=== PATIENT | male | born 1970 | race Caucasian/White ===

== ENCOUNTER 2016-03-10 08:12 | Day surgery (SDC) | payer OTHER, BC ==
[2016-03-05 11:09] VITALS: BMI 24.3
[2016-03-10 08:51] VITALS: RESP 16; TEMP 97.8
[2016-03-10] MEDS ORDERED: LACTATED RINGERS 1,000 ML IV ONE (09:13)
[2016-03-10] MEDS ORDERED: LIDOCAINE 1% 20 ML VIAL (10MG/ML) FOR IV START SQ ONE (09:14)
[2016-03-10] MEDS ORDERED: MIDAZOLAM 2 MG/2 ML VIAL ONE (09:56)
[2016-03-10] MEDS ORDERED: TRIAMCINOLONE ACETONIDE 40 MG/ML 1 ML VIAL ONE (09:56)
[2016-03-10] MEDS ORDERED: fentaNYL (PF) 50 MCG/ML 2 ML AMP ONE (09:56)
[2016-03-10] MEDS ORDERED: IOHEXOL 180 MG/ML 1 ML ML ONE (09:56)
[2016-03-10] MEDS ORDERED: LACTATED RINGERS 1,000 ML IV SCH (10:00)
--- NOTE | 2016-03-10 10:17 | P.PCN ---
Date of Procedure: 03/10/16 Procedure(s) Performed: PREOPERATIVE DIAGNOSIS: Lumbar radiculopathy. POSTOPERATIVE DIAGNOSIS: Lumbar radiculopathy. PROCEDURE 1. Lumbar epidural steroid injection under fluoroscopic guidance at the L5-S1 level. 2. Lumbar epidurogram. ANESTHESIA: Local with 1% lidocaine 3 ml and IV sedation with Versed 2 mg , and fentanyle 50 Mcg EBL: Minimal PROCEDURE INDICATION: The patient with low back pain and radiculitis symptoms unresponsive to conservative treatment. Fluoroscopy was used to optimize visualization of the needle placement and to maximize safety. PROCEDURE DESCRIPTION / TECHNIQUE: The patient was seen and identified in the preoperative area. Risks, benefits , complications including but not limited to infections ,bleeding ,allergic reaction to the medications ,nerve damage and not complete pain releife , and alternatives were discussed with the patient. The patient agreed to proceed with the procedure and signed the consent. IV was started, and vital signs were stable. Patient was taken to the OR and time out was completed. The patient was placed in the prone position on procedure table and a pillow was placed under the abdomen to reduce lumbar lordosis. The lumbosacral area was prepped and draped in the usual sterile fashion.ere closely monitored during the procedure. Conscious sedation was used during the procedure to decrease patients anxiety. Vital signs was monitered during the entire procedure. Using anterior-posterior fluoroscopy, the L5-S1 interlaminar space was identified and the skin over this site was marked and then infiltrated with 1% lidocaine subcutaneously. Subsequently, a 20-gauge Tuohy epidural needle was inserted and advanced toward the epidural space using the ``Loss of resistance technique and guided by AP and lateral fluoroscopy. The correct needle position in the epidural space was verified with the injection of 2 mL of the water soluble contrast dye Omnipaque 180 contrast and observing an excellent epidurogram with the epidural spread of the dye, after negative aspiration for blood and CSF and in the absence of paresthesias. Again after negative aspiration, a 6 ml mixture containing 80 mg of Kenalog and 2 ml of preservative free Normal Saline, and 2 ml of preservative free lidocaine 1% solution was injected and a washout of epidurogram was seen. Needle was withdrawn intact, skin was cleansed, and bandages were applied. COMPLICATIONS: None DISPOSITION / PLANS: The patient was placed in a supine position and transferred to the recovery area in a stable condition for observation. There was no evidence of lower extremity motor or sensory deficit after the procedure. Patient was discharged from the recovery room after meeting discharge criteria. Home discharge instructions were given to the patient by the staff. The patient was reexamined prior to discharge. The patient will schedule a follow up in the clinic in 2-4 weeks.
[2016-03-10] MEDS ORDERED: IV FLUID CONTINUATION 1,000 ML IV ONE ×2 (10:21)
--- NOTE | 2016-03-10 10:27 | FL ---
Fluoroscopy INDICATION: Pain FINDINGS: Fluoroscopy time: 11 seconds. Images obtained: 2. IMPRESSIONS: 1. Documentation of fluoroscopy.
[2016-03-10 10:49] VITALS: BP 130/88; PULSE 62
== END 2016-03-10 10:52 | disposition home or self-care (01) ==
LOC: ORPAIN 08:12
PROVIDERS: ATTEND Specialist
DX: M54.16 Radiculopathy, lumbar region (principal); F41.9 Anxiety disorder, unspecified
CPT/HCPCS: 62323; J2250; J3301; Q9965; J3010

== ENCOUNTER → 2016-08-08 | Outpatient (CLI) | payer OTHER ==
--- NOTE | 2016-08-08 21:16 | MR ---
EXAMINATION TYPE: MR lumbar spine wo con DATE OF EXAM: 08/08/2016 COMPARISON: 02/27/2014 HISTORY: low back pain; radiculopathy CONTRAST: 0 mL intravenous MultiHance. TECHNIQUE: Multiplanar, multisequence images of the lumbar spine were acquired. FINDINGS: L5-S1: Broad-based central disc bulge is present. Mild anterior thecal sac compression is present. N o AP spinal canal stenosis present. Facet hypertrophy is present. There is moderate left foraminal na rrowing. Correlate with left S1 radicular symptoms. The right foramen is patent. L4-L5: There is a large broad disc bulge with moderate anterior thecal sac compression. Focal left la rge disc herniation is present extending inferiorly posterior to L5. This has moderate to large degre e of thecal sac compression. This is diminished from the comparison study. However, significant impin gement likely remains present. L3-L4: No significant disc bulge or disc herniation. No spinal canal stenosis. No foraminal stenosi s. Disc desiccation is present.. L2-L3: No significant disc bulge or disc herniation. No spinal canal stenosis. No foraminal stenosi s. . L1-L2: No significant disc bulge or disc herniation. No spinal canal stenosis. No foraminal stenosi s. . T12-L1: No significant disc bulge or disc herniation. No spinal canal stenosis. No foraminal stenos is. . Disc herniation at L4-5 remains significant but slightly smaller than the comparison. The disc bulgin g L5-S1 is stable. Disc desiccation at L3-4 is stable from 2015. IMPRESSION: 1. Large left paracentral L4-5 disc herniation with nerve root compression and significant thecal sac compression. This may be slightly smaller than 2015. 2. Stable large broad disc central bulge L5-S1.
== END | disposition home or self-care (01) ==
LOC: RADMRIMAIN 11:41
PROVIDERS: ATTEND Physician Assistant Medical
DX: M51.17 Intervertebral disc disorders with radiculopathy, lumbosacral region (principal)
CPT/HCPCS: 72148

== ENCOUNTER → 2016-12-21 | Outpatient (CLI) | payer BC, OTHER ==
[2016-12-21 11:12] LABS: Partial Thromboplastin Time 24.7 sec (22.0-30.0); Prothrombin Time 10.6 sec (9.0-12.0)
[2016-12-21 11:14] LABS: Basophils % (A) 0 %; CH 29.4; Eosinophils % (A) 1 %; HCT 42.2 % (39.0-53.0); HGB 13.6 gm/dL (13.0-17.5); Luc # (Auto) 0.08; Luc % (Auto) 1; Lymphocytes # (A) 1.6 k/uL (1.0-4.8); Lymphocytes % (A) 18 %; MCH 28.9 pg (25.0-35.0); MCHC 32.2 g/dL (31.0-37.0); MCV 89.7 fL (80.0-100.0); Mean Platelet Volume 7.7; Monocytes # (A) 0.5 k/uL (0-1.0); Monocytes % (A) 5 %; Neutrophils # (A) 6.9 k/uL (1.3-7.7); Neutrophils % (A) 75 %; RBC 4.71 m/uL (4.30-5.90); RDW 13.8 % (11.5-15.5); WBC 9.1 k/uL (3.8-10.6); WBC (Perox) 9.28
[2016-12-21 11:22] LABS: Anion Gap 12 mmol/L; Blood Urea Nitrogen 15 mg/dL (9-20); Calcium 9.9 mg/dL (8.4-10.2); Carbon Dioxide 26 mmol/L (22-30); Chloride 103 mmol/L (98-107); Glucose 121 mg/dL (74-99); Non-African American GFR(MDRD) >60 (>60 ml/min/1.73 sqM); Sodium 141 mmol/L (137-145)
[2016-12-21 11:31] LABS: Appearance,Urine Clear (Clear); Bilirubin,Urine Negative (Negative); Glucose,Urine (UA) Negative (Negative); Ketones,Urine Negative (Negative); Leukocyte Esterase,Urine Negative (Negative); Nitrite,Urine Negative (Negative); Protein,Urine Negative (Negative); Specific Gravity,Urine 1.011 (1.001-1.035); UA Billing (MACRO vs. MICRO) CHEM; Urobilinogen,Urine <2.0 mg/dL (<2.0)
--- NOTE | 2016-12-21 14:27 | XR ---
EXAMINATION TYPE: XR chest 2V DATE OF EXAM: 12/21/2016 COMPARISON: None HISTORY: 46-year-old male preoperative evaluation for lumbar surgery. TECHNIQUE: Frontal and lateral views FINDINGS: The cardiomediastinal silhouette, aorta, and pulmonary vasculature are within normal limits. Lungs an d pleural spaces are clear. Old fracture distal left clavicle. Bony irregularity along the distal asp ect of the right clavicle suggesting sequela of prior injury as well. IMPRESSION: No acute cardiopulmonary process.
== END | disposition home or self-care (01) ==
LOC: LABPAT 10:28
PROVIDERS: ATTEND Orthopaedic Surgery Orthopaedic Surgery of the Spine
DX: Z01.818 Encounter for other preprocedural examination (principal); M48.061 Spinal stenosis, lumbar region without neurogenic claudication
CPT/HCPCS: 36415; 71020; 80048; 81003; 85025; 85610; 85730; 86850; 86900; 86901

== ENCOUNTER 2016-12-30 06:11 | Day surgery (SDC) | payer BC, OTHER ==
[2016-12-25 09:47] VITALS: BMI 23.6
[~2016-12-30 06:11] MED LIST: BACITRACIN 50,000 UNIT, POLYMYXIN B 500,000 UNIT in SODIUM CHLORIDE 0.9% IRRIGATIO 1,00... IRRIGATION ONE; DEXAMETHASONE SOD PHOSPHATE 10 MG/ML 1 ML VIAL IV ONE; LACTATED RINGERS 1,000 ML IV SCH; MIDAZOLAM 2 MG/2 ML VIAL IV PRN; ONDANSETRON 4 MG/2 ML VIAL IVP ONE; SCOPOLAMINE 1.5MG/72HR PATCH TRANSDERM ONE; ceFAZolin 2 GM in SODIUM CHLORIDE 0.9% 100 ML IVPB ONE; ceFAZolin IN SWFI 2 GM/20 ML SYRINGE IVP ONE
[2016-12-30] MEDS ORDERED: LIDOCAINE 1% 20 ML VIAL (10MG/ML) FOR IV START INTRADERMA ONE (06:49)
[2016-12-30] MEDS ORDERED: NEOSTIGMINE 1 MG/ML 10 ML VIAL ONE (07:32)
[2016-12-30] MEDS ORDERED: MIDAZOLAM 2 MG/2 ML VIAL ONE (07:32)
[2016-12-30] MEDS ORDERED: PROPOFOL 10 MG/ML 20 ML VIAL IV ONE ×2 (07:32)
[2016-12-30] MEDS ORDERED: fentaNYL (PF) 50 MCG/ML 2 ML AMP ONE (07:32)
[2016-12-30] MEDS ORDERED: KETAMINE 10 MG/ML 20 ML VIAL ONE (07:32)
[2016-12-30] MEDS ORDERED: GLYCOPYRROLATE 0.2 MG/ML 2 ML VIAL ONE (07:32)
[2016-12-30] MEDS ORDERED: LIDOCAINE 1% INJ 10MG/ML (20 ML MDV) ONE (07:32)
[2016-12-30] MEDS ORDERED: ROCURONIUM BROMIDE 10 MG/ML 10 ML VIAL IV ONE (07:32)
[2016-12-30] MEDS ORDERED: BUPIVACAINE (PF) 0.25% 30 ML VIAL SQ ONE (07:54)
[2016-12-30] MEDS ORDERED: GELATIN SPONGE,ABSORB (LARGE) 1 EACH SPONGE TOPICAL ONE (08:14)
[2016-12-30] MEDS ORDERED: THROMBIN (BOVINE) 5,000 UNIT VIAL TOPICAL ONE (08:16)
[2016-12-30] MEDS ORDERED: methylPREDNISolone ACETATE 80 MG/ML 1 ML VIAL INJ ONE (08:48)
[2016-12-30] MEDS ORDERED: LACTATED RINGERS 1,000 ML IV ONE (08:53)
--- NOTE | 2016-12-30 09:15 | P.OP ---
Date of Procedure: 12/30/16 Preoperative Diagnosis: Spinal stenosis, herniated nucleus pulposis L4 5, neurogenic claudication, lower extremity radiculopathy Postoperative Diagnosis: same Anesthesia: GETA Pathology: none sent Condition: stable Disposition: PACU Description of Procedure: DESCRIPTION OF PROCEDURE(S): BRIEF OPERATIVE NOTE Preoperative Diagnosis: Spinal stenosis L4 5, herniated nucleus pulposis L4 5, neurogenic claudication, lower extremity radiculopathy Postoperative Diagnosis: Same Procedure: Laminectomy and decompression bilaterally L4 5 Discectomy for decompression L4 5 Placement of interlaminar stabilization device, Coflex device L4 5 Use of fluoroscopic guidance Surgeon: Dr. Chavis Gauge Operator: Loc FINN who is present throughout the entire the case persistence during positioning, dissection, exposure, visualization, and all crucial elements of the case as well as closure. Anesthesia: General anesthesia Estimated blood loss: Approximately 50 mL measuring 12 mm Complications: None apparent Components implanted: Paradigm Coflex interlaminar stabilization device Disposition: To recovery room in good stable condition. OPERATIVE INDICATIONS The patient has been having issues in their lower back and lower extremities. The patient was having evidence of neurogenic claudication and spinal stenosis along with issues with lower extremity radiculopathy. The patient also had evidence of radiculopathy particularly in the left lower extremity which was worsening to the right. The patient was found to have significant spinal stenosis which correlated well with their low back and lower extremity symptoms. He was also found to have a disc herniation at L4 5 with extruded fragment. The patient had disc height loss with a slight retrolisthesis at L4 5. The patient has been through conservative treatment. With their imaging, and the level of their stenosis and their propensity for the possibility of recurrent stenosis I felt that decompression with intralaminar stabilization would be a good benefit for the patient. We discussed various treatment options including surgery, and the patient wishes to proceed with surgery We discussed the risk, patient's alternatives and benefits of surgery including but not limited to, risk of bleeding risk of infection, risk of need for further surgery, risk of decreased, loss of motion, loss of function, nerve damage, paralysis, heart attack, blindness and . OPERATIVE SUMMARY After discussing all the risks, patient alternatives and benefits at length, the patient elected to proceed with surgical intervention, signed informed consent, and presented for their procedure. The patient was seen and examined in the preoperative holding area and the surgical site was marked. The patient was given antibiotics and brought to the operating room. The patient was sedated and intubated by anesthesia in standard fashion. The patient was positioned on to the operating room table in a prone position on the appropriate frame which was well-padded and well molded. We were careful to pad any bony prominences and pressure points. We were careful to maintain the patient's cervical spine and good neutral alignment and position throughout. The patient was prepped and draped in a normal standard fashion. An appropriate timeout and keystone protocol performed. We were able to proceed with the surgery. Fluoroscopy was utilized to establish the appropriate level. The local wound area was infiltrated with local anesthetic. An incision was made at the midline longitudinally over the appropriate levels. Dissection was taken down subcutaneously to the level of the fascia which was split midline. Dissection was taken over the lamina. Intraoperative fluoroscopy was taken which showed a marker at the appropriate level. With the appropriate level positively confirmed, we were able to proceed with laminectomy. The wound was copiously irrigated and suctioned dry as had been done periodically throughout the case. I performed a laminectomy with a combination of curettes and a high-speed bur and Kerrison rongeurs. A small medial facetectomy was performed again further access. This was done bilaterally at that level. A partial foraminotomy was also performed. Portions of the ligamentum flavum were taken down to expose the dura and traversing nerve root. I was able to mobilize the traversing nerve root and gain access to the disc space. Note was made of obvious compression from the disc. The anterior aspect of the nerve root and portions of the dura were adhered down to the disc and I tried to free them up as best as possible, but there was significant scarring given the old scar herniation at the area. I was able to mobilize to some degree and gain good access to the disc space Protecting the soft tissue structures, a small annulotomy was established. I was able to perform discectomy and remove any extruded disc fragments and any loose fragments from within the disc itself. There is some disc desiccation noted. I tried to preserve the disc annulus that appeared stable. There were no further extruded fragments noted. There is no evidence of dural tear or leak. Good hemostasis maintained. The wound was copiously irrigated and suctioned dry. Good decompression was noted. At this point further prepared the interspinous process and interlaminar space with a combination of curettes and a high-speed bur and Kerrison rongeurs. As able get good parallel alignment at the interspinous process space and interlaminar space. I used a trial spacer for the Coflex device and have good fit and fill with the appropriate size device at L4 5. I had to shave down the spinous process at to allow for appropriate positioning of the Coflex device. The device was prepared and then positioned and malleted in position with good alignment and good position and good bony purchase at the interlaminar space. The position was checked and found to be approximately 3 mm away from the dura without impingement on the dura itself. It was checked and found to be stable. Intraoperative C-arm was utilized to confirm the alignment and position at the appropriate levels. We were able to proceed with closure. The fascia was closed for a watertight closure. The subcuticular tissue was closed with absorbable suture. The wound was cleaned and dried and dressed with the appropriate dressing. The drapes were broken down. The patient was gently rolled back onto their hospital bed being careful to maintain their cervical spine and good neutral alignment and position. They were woken up by anesthesia, extubated, and brought to the recovery room in good stable condition. The patient will be admitted to the hospital for observation and for appropriate postoperative care, medical management and monitoring. We will continue to follow them closely about the postoperative course.
[2016-12-30] MEDS ORDERED: HYDROcodone/APAP 5-325MG 1 EACH TAB PO PRN ×2 (09:16)
[2016-12-30] MEDS ORDERED: ONDANSETRON 4 MG/2 ML VIAL IVP PRN (09:16)
[2016-12-30] MEDS ORDERED: HYDROmorphone 0.5 MG/0.5 ML SYRINGE IVP PRN (09:16)
[2016-12-30] MEDS ORDERED: IBUPROFEN 600 MG TAB PO PRN (09:16)
[2016-12-30] MEDS ORDERED: HYDROcodone/APAP 10-325MG 1 EACH TAB PO PRN (09:17)
[2016-12-30 09:26] VITALS: RESP 16
[2016-12-30] MEDS: HYDROmorphone 0.5 MG/0.5 ML SYRINGE IVP PRN ×3 (09:35→10:26)
--- NOTE | 2016-12-30 10:03 | FL ---
EXAMINATION TYPE: FL guidance operating room DATE OF EXAM: 12/30/2016 CLINICAL HISTORY: Back pain TECHNIQUE: Fluoroscopy. COMPARISON: none FINDINGS/IMPRESSION: Fluoroscopic guidance was provided during procedure performed by Dr. Chavis. A total of 3 seconds of fluoroscopic time was utilized during the procedure and 0 spot images was acqui red.
[2016-12-30 10:46] VITALS: TEMP 97.9
[2016-12-30] MEDS ORDERED: HYDROmorphone 2 MG/ML 1 ML SYRINGE IVP PRN (11:04)
[2016-12-30] MEDS ORDERED: BENZOCAINE/MENTHOL LOZENG 1 EACH LOZENGE MUCOUS MEM PRN (11:04)
[2016-12-30] MEDS ORDERED: DIAZEPAM 5 MG TAB PO PRN (11:04)
[2016-12-30] MEDS ORDERED: SODIUM CHLORIDE 0.9% 1,000 ML IV SCH (11:15)
[2016-12-30 12:23] VITALS: BP 145/94; PULSE 72
--- NOTE | 2016-12-30 12:56 | XR ---
EXAMINATION TYPE: XR lumbar spine 1V DATE OF EXAM: 12/30/2016 CLINICAL HISTORY: Back pain TECHNIQUE: Fluoroscopy. COMPARISON: none FINDINGS/ IMPRESSION: Fluoroscopic guidance was provided during procedure performed by Dr. Chavis. A total of 3 seconds of fluoroscopic time was utilized during the procedure and 0 spot images was acquired.
[2016-12-30] MEDS ORDERED: ceFAZolin IN SWFI 2 GM/20 ML SYRINGE IVP SCH (16:00)
[2016-12-30] MEDS ORDERED: CYCLOBENZAPRINE 10 MG TAB PO SCH (16:00)
[2016-12-30] MEDS ORDERED: GABAPENTIN 300 MG CAP PO SCH (16:00)
== END 2016-12-30 14:15 | disposition home or self-care (01) ==
LOC: OR 06:11 → 5MS5E 09:05 → OR 14:15
PROVIDERS: ATTEND Orthopaedic Surgery Orthopaedic Surgery of the Spine
DX: M48.062 Spinal stenosis, lumbar region with neurogenic claudication (principal); M51.16 Intervertebral disc disorders with radiculopathy, lumbar region; M47.817 Spondylosis without myelopathy or radiculopathy, lumbosacral region; Z79.891 Long term (current) use of opiate analgesic; Z79.899 Other long term (current) drug therapy
CPT/HCPCS: 22867; 86900; 86901; 86850; 72020; C1713; J2250; J1040; J2710; J0690; J2405; J2001; J3010; J2704; J1170

== ENCOUNTER → 2017-11-23 | Outpatient (CLI) | payer OTHER ==
--- NOTE | 2017-11-23 12:15 | XR ---
EXAMINATION TYPE: XR elbow complete RT DATE OF EXAM: 11/23/2017 CLINICAL HISTORY: Right elbow pain after posterior injury. TECHNIQUE: Frontal, lateral and oblique images of the right elbow are obtained. COMPARISON: None FINDINGS: There is no acute fracture/dislocation evident in the right elbow. No abnormal fat pad si gns are seen. Focal soft tissue swelling is seen over the posterior elbow. IMPRESSION: Posterior soft tissue swelling over the elbow joint with no acute fracture or dislocation in the right elbow.
== END | disposition home or self-care (01) ==
LOC: RADXRMAIN 11:31
PROVIDERS: ATTEND Emergency Medicine
DX: M79.89 Other specified soft tissue disorders (principal)

== ENCOUNTER → 2017-12-01 | Outpatient (CLI) | payer OTHER ==
--- NOTE | 2017-12-01 13:10 | XR ---
Right elbow HISTORY: Trauma and pain 3 views the right elbow correlated prior exam 11/23/2017 There is no significant interval change. Bone mineralization, joint spaces and alignment are maintain ed. Mild hypertrophic change present anteriorly compatible with osteophytic change. Posterior soft ti ssue swelling is again noted. IMPRESSION: No fracture or dislocation. Elbow MRI may be of benefit.
== END | disposition home or self-care (01) ==
LOC: RADXRMAIN 12:15
PROVIDERS: ATTEND Emergency Medicine
DX: S50.01XD Contusion of right elbow, subsequent encounter (principal)

== ENCOUNTER 2018-03-18 14:11 | Emergency (ER) | payer BC, OTHER ==
[2018-03-18 14:21] VITALS: RESP 20; TEMP 97.8
--- NOTE | 2018-03-18 15:01 | ED ---
Head Injury HPI - General Chief complaint: Head Injury Stated complaint: Fall-Head Injury Time Seen by Provider: 03/18/18 14:22 Source: patient, RN notes reviewed Mode of arrival: ambulatory Limitations: no limitations - History of Present Illness Initial comments: 47-year-old male presents emergency Department chief complaint of head injury. Patient states that he fell down some steps and a ramp yesterday. Patient did strike his head and felt that he passed out. Patient went of headache just feeling off today. Denies any extremity pain. Denies any difficulty walking he states he does not feel and balance. Denies any blurred vision. Denies any open lacerations. States he is concerned has he struck his head and this does not feel his usual self. - Related Data Home Medications Medication Instructions Recorded Confirmed Gabapentin 600 mg PO BID 03/18/18 03/18/18 busPIRone HCL 15 mg PO BID 03/18/18 03/18/18 Previous Rx's Medication Instructions Recorded Hydrocodone/Acetaminophen [[place] 1 tab PO QID PRN #120 tablet 09/30/15 10-325] Allergies/Adverse reactions: Allergies Allergy/AdvReac Type Severity Reaction Status Date / Time No Known Allergies Allergy Verified 03/18/18 14:45 Review of Systems ROS Statement: Those systems with pertinent positive or pertinent negative responses have been documented in the HPI. ROS Other: All systems not noted in ROS Statement are negative. Past Medical History Past Medical History: Musculoskeletal Disorder Additional Past Medical History / Comment(s): lower back pain History of Any Multi-Drug Resistant Organisms: None Reported Past Surgical History: Appendectomy Additional Past Surgical History / Comment(s): pain clinic injections Past Anesthesia/Blood Transfusion Reactions: No Reported Reaction Past Psychological History: No Psychological Hx Reported Smoking Status: Never smoker Past Alcohol Use History: None Reported Past Drug Use History: None Reported - Past Family History Mother Family Medical History: No Reported History General Exam Limitations: no limitations General appearance: alert, in no apparent distress Head exam: Present: normocephalic. Absent: atraumatic, normal inspection (Area swelling on the left frontal aspect, abrasion noted) Eye exam: Present: normal appearance, PERRL, EOMI. Absent: scleral icterus, conjunctival injection, periorbital swelling ENT exam: Present: normal exam, normal oropharynx, mucous membranes moist, TM's normal bilaterally Neck exam: Present: normal inspection, full ROM. Absent: tenderness, meningismus, lymphadenopathy Respiratory exam: Present: normal lung sounds bilaterally. Absent: respiratory distress, wheezes, rales, rhonchi, stridor Cardiovascular Exam: Present: regular rate, normal rhythm, normal heart sounds. Absent: systolic murmur, diastolic murmur, rubs, gallop, clicks Extremities exam: Present: normal inspection, full ROM, normal capillary refill. Absent: tenderness, pedal edema, joint swelling, calf tenderness Back exam: Present: full ROM. Absent: tenderness, paraspinal tenderness, vertebral tenderness Neurological exam: Present: alert, oriented X3, CN II-XII intact, normal gait, reflexes normal, other (Plan to nose intact bilaterally without over shooting, normal gait). Absent: motor sensory deficit Skin exam: Present: warm, dry, intact, normal color. Absent: rash Course Vital Signs 03/18/18 14:19 Temperature 97.8 F Pulse Rate 88 Respiratory 20 Rate Blood Pressure 124/85 O2 Sat by Pulse 99 Oximetry Medical Decision Making - Medical Decision Making 47-year-old male presents emergency Department for fall head injury. CT of the brain and C-spine are obtained no acute fracture no intracranial hemorrhage. Patient has mild concussion symptoms. Patient will be discharged with instructions return parameters discussed. Disposition Clinical Impression: Contusion of scalp, Concussion Disposition: HOME SELF-CARE Condition: Stable Instructions (If sedation given, give patient instructions): Concussion (ED) Additional Instructions: Please return to the Emergency Department if symptoms worsen or any other concerns. Is patient prescribed a controlled substance at d/c from ED?: No Referrals: Yonatan Fletcher III, MD [Primary Care Provider] - 1-2 days Time of Disposition: 15:26
--- NOTE | 2018-03-18 15:18 | CT ---
EXAMINATION TYPE: CT brain héctor owens DATE OF EXAM: 03/18/2018 COMPARISON: NONE HISTORY: Fall injury, bump left side head and neck pain. CT DLP: 1251.4 mGycm. Automated Exposure Control for Dose Reduction was Utilized. TECHNIQUE: CT scan of the head and cervical spine are performed without contrast. FINDINGS: There is no acute intracranial hemorrhage, mass effect, or midline shift identified. The ventricles and sulci are within normal limits in size. The globes are intact bilaterally. There is small to moderate-sized left frontal acute scalp hematoma supraorbital level. The calvarium is intact . There is suspected fairly large mucous retention cysts or polyp nearly filling the entire left maxi llary sinus with moderate peripheral mucosal thickening. Remainder paranasal sinuses are clear. Cervical spine is visualized in its entirety from C1 through upper thoracic levels and demonstrates s atisfactory alignment without evidence of acute fracture or dislocation. Prevertebral soft tissue ap pears within normal limits. The C1-C2 articulation is within normal limits on the coronal images. Ve rtebral body heights and disc space heights are maintained. No large posterior disc herniations are s een on sagittal images. Thyroid gland is normal in size. Lung apices show mild pleural/parenchymal sc arring. IMPRESSION: 1. There is no acute fracture or dislocation evident in the cervical spine. 2. No acute intracranial hemorrhage or midline shift is seen. Small to moderate-size acute left front al scalp hematoma noted.
[2018-03-18 15:46] VITALS: BP 129/95; PULSE 87
== END 2018-03-18 15:44 | disposition home or self-care (01) ==
LOC: EC 14:11
DX: S06.0X1A Concussion with loss of consciousness of 30 minutes or less, initial encounter (principal); S00.03XA Contusion of scalp, initial encounter; Z79.899 Other long term (current) drug therapy; W10.9XXA Fall (on) (from) unspecified stairs and steps, initial encounter; Y92.009 Unspecified place in unspecified non-institutional (private) residence as the place of occurrence of the external cause
CPT/HCPCS: 70450; 72125; 99284

== ENCOUNTER 2018-05-16 22:46 | Emergency (ER) | payer OTHER ==
--- NOTE | 2018-05-17 00:41 | ED ---
Abdominal Pain HPI - General Chief Complaint: Abdominal Pain Stated Complaint: Abd Pain Time Seen by Provider: 05/17/18 00:19 Source: patient Mode of arrival: ambulatory Limitations: no limitations - History of Present Illness MD Complaint: abdominal pain Onset/Timin -: days(s) Location: [facility] Radiation: none Severity: severe Quality: cramping, aching Consistency: constant Improves With: nothing Worsens With: nothing Associated Symptoms: nausea - Related Data Home Medications Medication Instructions Recorded Confirmed Gabapentin 600 mg PO BID 03/18/18 03/18/18 busPIRone HCL 15 mg PO BID 03/18/18 03/18/18 Previous Rx's Medication Instructions Recorded Hydrocodone/Acetaminophen [[place] 1 tab PO QID PRN #120 tablet 09/30/15 10-325] Famotidine [Pepcid] 20 mg PO BID #14 tablet 05/17/18 Hydrocodone/Acetaminophen [[place] 1 each PO Q6HR PRN #20 tab 05/17/18 5-325] Ondansetron Odt [Zofran ODT] 4 mg PO Q8HR PRN #10 tab 05/17/18 Allergies Allergy/AdvReac Type Severity Reaction Status Date / Time No Known Allergies Allergy Verified 05/16/18 23:49 Review of Systems ROS Statement: Those systems with pertinent positive or pertinent negative responses have been documented in the HPI. ROS Other: All systems not noted in ROS Statement are negative. Constitutional: Denies: fever, chills Respiratory: Denies: cough, dyspnea Cardiovascular: Denies: chest pain, palpitations, edema Gastrointestinal: Reports: abdominal pain, nausea, constipation. Denies: vomiting, diarrhea, melena, hematochezia Genitourinary: Denies: dysuria, frequency, hematuria, testicular pain, testicular mass Musculoskeletal: Denies: back pain Skin: Denies: rash Neurological: Denies: headache Past Medical History Past Medical History: Musculoskeletal Disorder Additional Past Medical History / Comment(s): lower back pain History of Any Multi-Drug Resistant Organisms: None Reported Past Surgical History: Appendectomy Additional Past Surgical History / Comment(s): pain clinic injections Past Anesthesia/Blood Transfusion Reactions: No Reported Reaction Past Psychological History: No Psychological Hx Reported Smoking Status: Never smoker Past Alcohol Use History: Occasional Past Drug Use History: None Reported - Past Family History Mother Family Medical History: No Reported History General Exam Limitations: no limitations General appearance: alert, in no apparent distress Head exam: Present: atraumatic, normocephalic Eye exam: Present: normal appearance. Absent: scleral icterus, conjunctival injection ENT exam: Present: normal oropharynx Neck exam: Present: normal inspection Respiratory exam: Present: normal lung sounds bilaterally. Absent: respiratory distress, wheezes, rales, rhonchi, stridor Cardiovascular Exam: Present: regular rate, normal rhythm, normal heart sounds. Absent: systolic murmur, diastolic murmur, rubs, gallop GI/Abdominal exam: Present: soft, tenderness (There is mild left upper quadrant tenderness), normal bowel sounds. Absent: distended, guarding, rebound, rigid, organomegaly, mass, pulsatile mass, hernia Extremities exam: Present: normal inspection, normal capillary refill. Absent: pedal edema, calf tenderness Back exam: Present: normal inspection. Absent: CVA tenderness (R), CVA tenderness (L) Neurological exam: Present: alert Skin exam: Present: warm, dry, intact, normal color. Absent: rash Course Vital Signs 05/16/18 05/17/18 23:47 03:00 Temperature 99.6 F 98.6 F Pulse Rate 85 78 Respiratory 16 19 Rate Blood Pressure 139/95 150/87 O2 Sat by Pulse 96 98 Oximetry Medical Decision Making - Medical Decision Making Patient's 47-year-old man with pancreatitis. We discussed possible admission versus outpatient course, and at this point he would prefer to try an outpatient course. Understands to avoid alcohol and other dietary changes including clear liquid to rest the pancreas. Discussed appropriate further care and follow-up. Will return if he is failing outpatient management - Lab Data Result diagrams: 05/17/18 00:45 05/17/18 00:45 Lab Results 05/17/18 05/17/18 05/17/18 Range/Units 00:45 00:45 00:48 WBC 10.1 (3.8-10.6) k/uL RBC 4.48 (4.30-5.90) m/uL Hgb 13.3 (13.0-17.5) gm/dL Hct 38.9 L (39.0-53.0) % MCV 86.8 (80.0-100.0) fL MCH 29.6 (25.0-35.0) pg MCHC 34.1 (31.0-37.0) g/dL RDW 14.5 (11.5-15.5) % Plt Count 187 (150-450) k/uL Neutrophils % 78 % Lymphocytes % 15 % Monocytes % 5 % Eosinophils % 2 % Basophils % 0 % Neutrophils # 7.9 H (1.3-7.7) k/uL Lymphocytes # 1.5 (1.0-4.8) k/uL Monocytes # 0.5 (0-1.0) k/uL Eosinophils # 0.2 (0-0.7) k/uL Basophils # 0.0 (0-0.2) k/uL Sodium 140 (137-145) mmol/L Potassium 3.9 (3.5-5.1) mmol/L Chloride 104 (98-107) mmol/L Carbon Dioxide 27 (22-30) mmol/L Anion Gap 9 mmol/L BUN 10 (9-20) mg/dL Creatinine 0.78 (0.66-1.25) mg/dL Est GFR (CKD-EPI)AfAm >90 (>60 ml/min/1.73 sqM) Est GFR (CKD-EPI)NonAf >90 (>60 ml/min/1.73 sqM) Glucose 110 H (74-99) mg/dL Calcium 8.8 (8.4-10.2) mg/dL Total Bilirubin 0.5 (0.2-1.3) mg/dL AST 20 (17-59) U/L ALT 21 (21-72) U/L Alkaline Phosphatase 95 (38-126) U/L Total Protein 6.1 L (6.3-8.2) g/dL Albumin 3.7 (3.5-5.0) g/dL Amylase 130 H (30-110) U/L Lipase 2073 H (23-300) U/L Urine Color Yellow Urine Appearance Clear (Clear) Urine pH 6.5 (5.0-8.0) Ur Specific [place] 1.023 (1.001-1.035) Urine Protein Trace H (Negative) Urine Glucose (UA) Negative (Negative) Urine Ketones Negative (Negative) Urine Blood Small H (Negative) Urine Nitrite Negative (Negative) Urine Bilirubin Negative (Negative) Urine Urobilinogen <2.0 (<2.0) mg/dL Ur Leukocyte Esterase Trace H (Negative) Urine RBC 2 (0-5) /hpf Urine WBC 1 (0-5) /hpf Urine Bacteria Rare H (None) /hpf Urine Mucus Rare H (None) /hpf Disposition Clinical Impression: Pancreatitis Disposition: HOME SELF-CARE Condition: Good Instructions (If sedation given, give patient instructions): Pancreatitis (ED) Prescriptions: Hydrocodone/Acetaminophen [[place] 5-325] 1 each PO Q6HR PRN #20 tab PRN Reason: Pain Famotidine [Pepcid] 20 mg PO BID #14 tablet Ondansetron Odt [Zofran ODT] 4 mg PO Q8HR PRN #10 tab PRN Reason: Nausea Is patient prescribed a controlled substance at d/c from ED?: Yes When asked, does pt state using other controlled substances?: No If prescribed controlled substance>3 days was MAPS reviewed?: Prescribed <3 Days If opioid is for acute pain is fill amount 7 days or less?: Yes If Rx opioid, was Start Talking consent form obtained?: Yes Referrals: Yonatan Fletcher III, MD [Primary Care Provider] - 1-2 days
[2018-05-17 01:06] LABS: Basophils % (A) 0 %; Eosinophils # (A) 0.2 k/uL (0-0.7); Eosinophils % (A) 2 %; HCT 38.9 % (39.0-53.0); HGB 13.3 gm/dL (13.0-17.5); Lymphocytes # (A) 1.5 k/uL (1.0-4.8); Lymphocytes % (A) 15 %; MCH 29.6 pg (25.0-35.0); MCHC 34.1 g/dL (31.0-37.0); MCV 86.8 fL (80.0-100.0); Mean Platelet Volume 7.3; Monocytes # (A) 0.5 k/uL (0-1.0); Monocytes % (A) 5 %; Neutrophils # (A) 7.9 k/uL (1.3-7.7); Neutrophils % (A) 78 %; Platelet Count 187 k/uL (150-450); RBC 4.48 m/uL (4.30-5.90); RDW 14.5 % (11.5-15.5); WBC 10.1 k/uL (3.8-10.6)
[2018-05-17] MEDS ORDERED: MORPHINE SULFATE 4 MG/ML SYRINGE IV STA (01:11)
[2018-05-17 01:16] LABS: ALT 21 U/L (21-72); AST 20 U/L (17-59); Albumin 3.7 g/dL (3.5-5.0); Alkaline Phosphatase 95 U/L (38-126); Amylase 130 U/L (30-110); Anion Gap 9 mmol/L; Blood Urea Nitrogen 10 mg/dL (9-20); Calcium 8.8 mg/dL (8.4-10.2); Carbon Dioxide 27 mmol/L (22-30); Chloride 104 mmol/L (98-107); Glucose 110 mg/dL (74-99); Potassium 3.9 mmol/L (3.5-5.1); Sodium 140 mmol/L (137-145); Total Bilirubin 0.5 mg/dL (0.2-1.3); Total Protein 6.1 g/dL (6.3-8.2)
--- NOTE | 2018-05-17 01:24 | CT ---
EXAM: CT Abdomen and Pelvis Without Intravenous Contrast CLINICAL HISTORY: Pain TECHNIQUE: Axial computed tomography images of the abdomen and pelvis without intravenous contrast. CTDI is 7.1 mGy and DLP is 85.9 mGy-cm. This CT exam was performed using one or more of the following dose reduction techniques: automated exposure control, adjustment of the mA and/or kV according to patient size, and/or use of iterative reconstruction technique. COMPARISON: No relevant prior studies available. FINDINGS: Lung bases: Unremarkable. No mass. No consolidation. ABDOMEN: Liver: Hepatomegaly. Gallbladder and bile ducts: The gallbladder is contracted. No definite stones seen within the lumen. No ductal dilation. Pancreas: Hazy appearance to the margins of the pancreas with prominence of the pancreatic duct. There is infiltration of the fat around the splenic hilum infiltration the fat between the stomach and the spleen findings may represent a early pancreatitis. Clinical correlation is required. No free fluid is noted. Spleen: Unremarkable. No splenomegaly. Adrenals: Unremarkable. No mass. Kidneys and ureters: Unremarkable. No obstructing stones. No hydronephrosis. Stomach and bowel: Unremarkable. No obstruction. No mucosal thickening. PELVIS: Appendix: The appendix is not identified Bladder: Unremarkable. No stones. Reproductive: Unremarkable as visualized. ABDOMEN and PELVIS: Intraperitoneal space: Unremarkable. No free air. No significant fluid collection. Bones/joints: No acute fracture. No dislocation. Soft tissues: Unremarkable. Vasculature: No abdominal aortic aneurysm. Lymph nodes: Unremarkable. No enlarged lymph nodes. IMPRESSION: Hazy appearance to the margins of the pancreas infiltration of the fat in the splenic hilum around the tail the pancreas. Prominence of the pancreatic duct
[2018-05-17 01:31] LABS: Appearance,Urine Clear (Clear); Bacteria,Urine Rare /hpf; Bilirubin,Urine Negative (Negative); Blood,Urine Small (Negative); Color,Urine Yellow; Glucose,Urine (UA) Negative (Negative); Ketones,Urine Negative (Negative); Leukocyte Esterase,Urine Trace (Negative); Mucus,Urine Rare /hpf; Nitrite,Urine Negative (Negative); PH, Urine 6.5 (5.0-8.0); Protein,Urine Trace (Negative); RBC,Urine 2 /hpf (0-5); Specific Gravity,Urine 1.023 (1.001-1.035); Urobilinogen,Urine <2.0 mg/dL (<2.0); WBC,Urine 1 /hpf (0-5)
[2018-05-17 02:09] LABS: Lipase 2073 U/L (23-300)
[2018-05-17] MEDS ORDERED: HYDROmorphone 1 MG/ML 1 ML SYRINGE IVP STA (02:40)
[2018-05-17 03:06] VITALS: BP 150/87; PULSE 78; RESP 19; TEMP 98.6
== END 2018-05-17 03:01 | disposition home or self-care (01) ==
LOC: EC 22:46
DX: K85.90 Acute pancreatitis without necrosis or infection, unspecified (principal); Z79.899 Other long term (current) drug therapy; Z90.89 Acquired absence of other organs
CPT/HCPCS: 36415; 80053; 82150; 83690; 85025; 81001; 74176; 99284; 96374; 96375; J2270; J1170

== ENCOUNTER 2018-05-27 11:51 | Emergency (ER) | payer OTHER ==
[2018-05-27 12:09] VITALS: TEMP 98
[2018-05-27] MEDS ORDERED: SODIUM CHLORIDE 0.9% 1,000 ML IV ONE (12:31)
--- NOTE | 2018-05-27 12:48 | ED ---
Abdominal Pain HPI - General Chief Complaint: Abdominal Pain Stated Complaint: abd pain - recheck Time Seen by Provider: 05/27/18 12:10 Source: patient Mode of arrival: ambulatory Limitations: no limitations - History of Present Illness Initial Comments: 47-year-old male past medical history of EtOH abuse, previous pancreatitis presented today for chief complaint of abdominal pain x 3 days. Patient states 2 weeks ago he was diagnosed pancreatitis, he was given option of inpatient versus home care. Patient states he preferred home care, he states he took the pills as prescribed and the symptoms went away. He states 3 days ago the symptoms which were identical to when he presented with pancreatitis about 2 weeks ago return. He states is diffuse in the abdomen and particularly present in the epigastric region. denies radiation to his back or any other locations. Describes as aching, sometimes sharp. He states he has vomited on and off about 3 times in the past 2 days. He states he has decreased appetite. Patient denies chest pain, dyspnea or dyspnea on exertion denies lower external swelling back pain patient states she's had chills. No recorded fever. Patient states he has taking a lot of Imodium in the past day and a half due to having diarrhea. Patient denies melena or hematochezia or constipation urgency frequency dysuria testicular pain. Remaining review of system negative, upon arrival patient appears well. No signs of acute distress. - Related Data Home Medications Medication Instructions Recorded Confirmed Gabapentin 600 mg PO BID 03/18/18 05/27/18 busPIRone HCL 15 mg PO BID 03/18/18 05/27/18 Previous Rx's Medication Instructions Recorded Hydrocodone/Acetaminophen [[place] 1 tab PO QID PRN #120 tablet 09/30/15 10-325] Allergies Allergy/AdvReac Type Severity Reaction Status Date / Time No Known Allergies Allergy Verified 05/27/18 12:19 Review of Systems ROS Statement: Those systems with pertinent positive or pertinent negative responses have been documented in the HPI. ROS Other: All systems not noted in ROS Statement are negative. Past Medical History Past Medical History: Musculoskeletal Disorder Additional Past Medical History / Comment(s): lower back pain History of Any Multi-Drug Resistant Organisms: None Reported Past Surgical History: Appendectomy Additional Past Surgical History / Comment(s): pain clinic injections, Back Past Anesthesia/Blood Transfusion Reactions: No Reported Reaction Past Psychological History: No Psychological Hx Reported Smoking Status: Never smoker Past Alcohol Use History: Occasional Past Drug Use History: None Reported - Past Family History Mother Family Medical History: No Reported History General Exam - General Exam Comments Initial Comments: General: The patient is awake and alert, in no distress, and does not appear acutely ill. Eye: Pupils are equal, round and reactive to light, extra-ocular movements are intact. No nystagmus. There is normal conjunctiva bilaterally. No signs of icterus. Ears, nose, mouth and throat: There are moist mucous membranes and no oral lesions. Neck: The neck is supple, there is no tenderness or JVD. Cardiovascular: There is a regular rate and rhythm. No murmur, rub or gallop is appreciated. Respiratory: Lungs are clear to auscultation, respirations are non-labored, breath sounds are equal. No wheezes, stridor, rales, or rhonchi. Gastrointestinal: No noted diaphoresis, jaundice, pallor, protecting postures or squirming. Symmetrical pigmentation of abdomen without signs of inflammation. Umbilicus mildline, inverted without swelling. No dilated veins. Abdomen contour scaphoid, no noted abdominal distention. No visible masses. No peristalsis, aortic pulsations, or ventral hernia. Bowel sounds audible in all 4 quadrants, unremarkable. No friction rubs or venous hums. No epigastic, hepatic or abdominal bruits. Abdomen diffusely tender to palpation, states mild. No rigidity or guarding noted. No facial grimacing.Liver edge, not palpable. Spleen edge, right and left kidney not palpable. Superior bladder margin non-tender. Special Testing: Negative [place], Rov[place], McBurney, [place], cutaneous hyperesthesia. Iliopsoas and obturator tests negative bilaterally. Negative Heel Jar test. No CVA tenderness. Digital rectal exam deferred. Negative tanner turners or cullens s ign Musculoskeletal: Normal ROM, no tenderness. Strength 5/5. Sensation intact. Pulses equal bilaterally 2+. Neurological: A&O x 3. CN II-XII intact, There are no obvious motor or sensory deficits. Coordination appears grossly intact. Speech is normal. Skin: Skin is warm and dry and no rashes or lesions are noted. Psychiatric: Cooperative, appropriate mood & affect, normal judgment. Limitations: no limitations Course Vital Signs 05/27/18 05/27/18 12:07 13:48 Temperature 98 F Pulse Rate 76 71 Respiratory 20 18 Rate Blood Pressure 113/80 136/88 O2 Sat by Pulse 99 99 Oximetry Medical Decision Making - Medical Decision Making 47-year-old male presenting for diffuse abdominal pain x 3 days. Patient diagnosed pancreatitis 2 weeks prior. Patient states he has mild diffuse tenderness on abdominal exam nothing localized. Patient shows no signs of grimacing, protective posturing, rigidity or guarding.no right upper quadrant pain, negative Valdez sign. No jaundice. Lipase within normal limits today. no leukocytosis. Patient states he has had diarrhea a few episodes of emesis. Patient denies chest pain or shortness of breath. She appears well, hydrated on examination. Patient was requesting pain medication for his chronic low back pain denies any changes in his back pain today. Patient provided 1 time dose 2mg morphine. Pt given GI cocktail. At this time I feel patient is stable for discharge with outpatient f/u with primary care provider. Patient is agreeable with discharge as well as outpatient f/u in 2-3 days. Case was discussed in detail with Dr. Rivera's with is agreeable with patient plan of care as well as discharge. Patient is aware of all return parameters discussed and appears to be reliable. At this time I feel patient has viral syndrome with mild diffuse abdominal pain, and diarrhea/vomiting. - Lab Data Result diagrams: 05/27/18 12:25 05/27/18 12:25 Lab Results 05/27/18 05/27/18 05/27/18 Range/Units 12:25 12:25 12:25 WBC 9.4 (3.8-10.6) k/uL RBC 5.14 (4.30-5.90) m/uL Hgb 15.6 (13.0-17.5) gm/dL Hct 47.1 (39.0-53.0) % MCV 91.5 (80.0-100.0) fL MCH 30.3 (25.0-35.0) pg MCHC 33.1 (31.0-37.0) g/dL RDW 14.8 (11.5-15.5) % Plt Count 232 (150-450) k/uL Neutrophils % 78 % Lymphocytes % 15 % Monocytes % 5 % Eosinophils % 1 % Basophils % 0 % Neutrophils # 7.3 (1.3-7.7) k/uL Lymphocytes # 1.4 (1.0-4.8) k/uL Monocytes # 0.5 (0-1.0) k/uL Eosinophils # 0.1 (0-0.7) k/uL Basophils # 0.0 (0-0.2) k/uL Sodium 144 (137-145) mmol/L Potassium 3.8 (3.5-5.1) mmol/L Chloride 102 (98-107) mmol/L Carbon Dioxide 30 (22-30) mmol/L Anion Gap 12 mmol/L BUN 13 (9-20) mg/dL Creatinine 0.97 (0.66-1.25) mg/dL Est GFR (CKD-EPI)AfAm >90 (>60 ml/min/1.73 sqM) Est GFR (CKD-EPI)NonAf >90 (>60 ml/min/1.73 sqM) Glucose 86 (74-99) mg/dL Calcium 10.5 H (8.4-10.2) mg/dL Total Bilirubin 0.4 (0.2-1.3) mg/dL AST 25 (17-59) U/L ALT 30 (21-72) U/L Alkaline Phosphatase 75 (38-126) U/L Total Protein 7.6 (6.3-8.2) g/dL Albumin 4.8 (3.5-5.0) g/dL Amylase 54 (30-110) U/L Lipase 241 (23-300) U/L Urine Color Light Yellow Urine Appearance Clear (Clear) Urine pH 7.0 (5.0-8.0) Ur Specific [place] 1.007 (1.001-1.035) Urine Protein Negative (Negative) Urine Glucose (UA) Negative (Negative) Urine Ketones Negative (Negative) Urine Blood Negative (Negative) Urine Nitrite Negative (Negative) Urine Bilirubin Negative (Negative) Urine Urobilinogen <2.0 (<2.0) mg/dL Ur Leukocyte Esterase Negative (Negative) Disposition Clinical Impression: Vomiting, Diarrhea, Abdominal pain Disposition: HOME SELF-CARE Condition: Good Instructions (If sedation given, give patient instructions): Abdominal Pain (ED), Acute Nausea and Vomiting (ED) Additional Instructions: Please use medication as discussed. Please follow-up with family doctor in the next 2-3 days. Please return to emergency room if the symptoms increase or worsen or for any other concerns. Is patient prescribed a controlled substance at d/c from ED?: No Referrals: Yonatan Fletcher III, MD [Primary Care Provider] - 1-2 days Time of Disposition: 13:56
[2018-05-27 12:57] LABS: Basophils % (A) 0 %; Eosinophils # (A) 0.1 k/uL (0-0.7); Eosinophils % (A) 1 %; HCT 47.1 % (39.0-53.0); HGB 15.6 gm/dL (13.0-17.5); Lymphocytes # (A) 1.4 k/uL (1.0-4.8); Lymphocytes % (A) 15 %; MCH 30.3 pg (25.0-35.0); MCHC 33.1 g/dL (31.0-37.0); MCV 91.5 fL (80.0-100.0); Mean Platelet Volume 6.6; Monocytes # (A) 0.5 k/uL (0-1.0); Monocytes % (A) 5 %; Neutrophils # (A) 7.3 k/uL (1.3-7.7); Neutrophils % (A) 78 %; Platelet Count 232 k/uL (150-450); RBC 5.14 m/uL (4.30-5.90); RDW 14.8 % (11.5-15.5); WBC 9.4 k/uL (3.8-10.6)
[2018-05-27 13:02] LABS: Appearance,Urine Clear (Clear); Bilirubin,Urine Negative (Negative); Blood,Urine Negative (Negative); Color,Urine Light Yellow; Glucose,Urine (UA) Negative (Negative); Ketones,Urine Negative (Negative); Leukocyte Esterase,Urine Negative (Negative); Nitrite,Urine Negative (Negative); Protein,Urine Negative (Negative); Specific Gravity,Urine 1.007 (1.001-1.035); Urobilinogen,Urine <2.0 mg/dL (<2.0)
[2018-05-27 13:12] LABS: ALT 30 U/L (21-72); AST 25 U/L (17-59); Albumin 4.8 g/dL (3.5-5.0); Alkaline Phosphatase 75 U/L (38-126); Amylase 54 U/L (30-110); Anion Gap 12 mmol/L; Blood Urea Nitrogen 13 mg/dL (9-20); Calcium 10.5 mg/dL (8.4-10.2); Carbon Dioxide 30 mmol/L (22-30); Chloride 102 mmol/L (98-107); Glucose 86 mg/dL (74-99); Lipase 241 U/L (23-300); Potassium 3.8 mmol/L (3.5-5.1); Sodium 144 mmol/L (137-145); Total Bilirubin 0.4 mg/dL (0.2-1.3); Total Protein 7.6 g/dL (6.3-8.2)
[2018-05-27] MEDS ORDERED: MAG HYDROX/AL HYDROX/SIMETH 30 ML, HYOSCYAMINE ELIXIR 10 ML, CIMETIDINE HCL 300 MG, LID... PO STA ×4 (13:29)
[2018-05-27] MEDS ORDERED: MORPHINE SULFATE 2 MG/ML SYRINGE IVP STA (13:29)
--- NOTE | 2018-05-27 14:08 | XR ---
EXAMINATION TYPE: XR KUB DATE OF EXAM: 05/27/2018 1:59 PM CLINICAL HISTORY: Abdominal pain. TECHNIQUE: Single upright image of the abdomen is obtained. COMPARISON: None. FINDINGS: Scattered gas is seen in nondilated small bowel loops. Few air-fluid levels in the central abdomen within nondilated bowel suggests ileus. Gas and fecal material is seen in nondilated colon. T here is no pneumoperitoneum or abnormal calcification appreciated. The liver appears elongated extend ing to the iliac crest. Intervertebral disc spacer is seen at L4-L5. The lung bases are clear and the osseous structures are intact. IMPRESSION: Mild small bowel ileus is suspected.
[2018-05-27 15:03] VITALS: BP 129/88; PULSE 75; RESP 16
== END 2018-05-27 15:08 | disposition home or self-care (01) ==
LOC: EC 11:51
DX: R10.84 Generalized abdominal pain (principal); R11.10 Vomiting, unspecified; R19.7 Diarrhea, unspecified; Z79.899 Other long term (current) drug therapy; Z90.49 Acquired absence of other specified parts of digestive tract
CPT/HCPCS: 36415; 74018; 80053; 81003; 82150; 83690; 85025; 96361; 96374; 99284

== ENCOUNTER → 2018-06-23 | Day surgery (SDC) | payer OTHER ==
[2018-06-21 09:45] VITALS: BMI 24.3
[~2018-06-23] MED LIST changes: -BACITRACIN 50,000 UNIT, POLYMYXIN B 500,000 UNIT in SODIUM CHLORIDE 0.9% IRRIGATIO 1,00... IRRIGATION ONE; -DEXAMETHASONE SOD PHOSPHATE 10 MG/ML 1 ML VIAL IV ONE; +LIDOCAINE 1% 20 ML VIAL (10MG/ML) FOR IV START INTRADERMA PRN; -MIDAZOLAM 2 MG/2 ML VIAL IV PRN; -ONDANSETRON 4 MG/2 ML VIAL IVP ONE; +PROPOFOL 10 MG/ML 20 ML VIAL IV ONE; -SCOPOLAMINE 1.5MG/72HR PATCH TRANSDERM ONE; -ceFAZolin 2 GM in SODIUM CHLORIDE 0.9% 100 ML IVPB ONE; -ceFAZolin IN SWFI 2 GM/20 ML SYRINGE IVP ONE
[2018-06-23 07:51] VITALS: TEMP 97.7
--- NOTE | 2018-06-23 08:43 | P.GSHP ---
History of Present Illness H&P Date: 06/23/18 Chief Complaint: GERD, nausea, diarrhea This is a 48-year-old male who presents today for EGD and colonoscopy. Patient has complaints of nausea. Diarrhea. Past Medical History Past Medical History: GERD/Reflux, Musculoskeletal Disorder Additional Past Medical History / Comment(s): pancreatitis,lower back pain History of Any Multi-Drug Resistant Organisms: None Reported Past Surgical History: Appendectomy, Back Surgery Additional Past Surgical History / Comment(s): pain clinic injections Back Past Anesthesia/Blood Transfusion Reactions: No Reported Reaction Smoking Status: Never smoker - Past Family History Father Family Medical History: Cancer Additional Family Medical History / Comment(s): colon Mother Family Medical History: No Reported History Additional Family Medical History / Comment(s): polyps Medications and Allergies Home Medications Medication Instructions Recorded Confirmed Type Hydrocodone/Acetaminophen [[place] 1 tab PO QID PRN #120 tablet 09/30/15 06/23/18 Rx 10-325] Gabapentin 600 mg PO TID PRN 03/18/18 06/23/18 History busPIRone HCL 15 mg PO BID 03/18/18 06/23/18 History DULoxetine HCL [Cymbalta] 30 mg PO DAILY 06/21/18 06/23/18 History Allergies Allergy/AdvReac Type Severity Reaction Status Date / Time No Known Allergies Allergy Verified 06/21/18 09:38 Surgical - Exam Vital Signs Temp Pulse Resp BP Pulse Ox 97.7 F 59 L 16 161/107 96 06/23/18 07:49 06/23/18 07:49 06/23/18 07:49 06/23/18 07:49 06/23/18 07:49 - General well developed, well nourished, no distress - Eyes PERRL - ENT normal pinna - Neck no masses - Respiratory normal expansion - Cardiovascular Rhythm: regular - Abdomen Abdomen: soft, non tender Assessment and Plan Assessment: GERD, nausea, diarrhea. We'll perform EGD and colonoscopy.
--- NOTE | 2018-06-23 08:58 | P.OP ---
Date of Procedure: 06/23/18 Preoperative Diagnosis: GERD, nausea, diarrhea Postoperative Diagnosis: Antral gastritis No hiatal hernia Mild esophagitis Procedure(s) Performed: EGD Colonoscopy Anesthesia: MAC Surgeon: Joni Graves Pathology: other (Antrum, esophagus) Condition: stable Disposition: PACU Description of Procedure: The patient's placed on the endoscopy table in the lateral position. He received IV sedation. The gastroscope placed oropharynx and passed in the esophagus and the stomach. Scope was then placed through the pylorus. The first second portion duodenum appeared normal. Scope was then brought back the antrum and this appeared mildly inflamed. A biopsies performed. The scope was then retroflexed and the remainder of the stomach appeared normal. There was no significant hiatal hernia. The GE junction was at 40 cm. The distal esophagus mildly inflamed a biopsies performed. The proximal esophagus appeared normal. Scope was withdrawn for patient. Next digital rectal exam was performed no abnormalities. The flexible colonoscope was then placed patient anus and passed throughout the entire colon. The ileocecal valve was visualized. The cecum, ascending and transverse colon appeared normal. The descending and; appeared normal. The scope was then brought back the rectum and this appeared normal. Scope was withdrawn for patient.
[2018-06-23 09:24] VITALS: BP 135/80; PULSE 64; RESP 18
--- NOTE | 2018-06-23 11:49 | NM ---
Nuclear medicine hepatobiliary scan. HISTORY: Pain. DOSAGE: The patient received 1.5 micrograms of CCK and 4.4 mCi of Technetium 99m Choletec. FINDINGS: There is normal hepatic extraction. The gallbladder is seen by 20 minutes. There is bilia ry to bowel clearance by 40 minutes. Ejection fraction is 22%. IMPRESSION: 1. Abnormal ejection fraction of 22% correlate for biliary dyskinesia.
== END ==
LOC: ORWHC2ENDO 07:37
PROVIDERS: ATTEND Surgery
DX: K29.50 Unspecified chronic gastritis without bleeding (principal); K21.0 Gastro-esophageal reflux disease with esophagitis; R19.7 Diarrhea, unspecified; M54.5 Low back pain; Z79.899 Other long term (current) drug therapy; Z90.49 Acquired absence of other specified parts of digestive tract; Z80.0 Family history of malignant neoplasm of digestive organs
CPT/HCPCS: 88305; 78227; 45378; 43239; A9537; J2805; J2704

== ENCOUNTER 2018-07-14 07:44 | Day surgery (SDC) | payer OTHER ==
[2018-07-11 09:52] VITALS: BMI 24.3
[~2018-07-14 07:44] MED LIST changes: +DEXAMETHASONE SOD PHOSPHATE 10 MG/ML 1 ML VIAL IV ONE; +HEPARIN SODIUM,PORCINE 5,000 UNIT/ML 1 ML VIAL SQ ONE; +ONDANSETRON 4 MG/2 ML VIAL IVP ONE; -PROPOFOL 10 MG/ML 20 ML VIAL IV ONE; +SCOPOLAMINE 1.5MG/72HR PATCH TRANSDERM ONE; +ceFAZolin IN SWFI 2 GM/20 ML SYRINGE IVP ONE
[2018-07-14] MEDS: MIDAZOLAM 2 MG/2 ML VIAL IV PRN ×3 (08:31→11:03)
[2018-07-14 08:47] LABS: Glucose,Whole Blood 88 mg/dL (75-99)
--- NOTE | 2018-07-14 08:52 | P.GSHP ---
History of Present Illness H&P Date: 07/14/18 Chief Complaint: Right upper quadrant pain This a 48-year-old male who presents today for laparoscopic cholecystectomy. Patient plans right quadrant pain. His recent HIDA scan shows a diminished ejection fraction. Past Medical History Past Medical History: GERD/Reflux, Hypertension, Musculoskeletal Disorder Additional Past Medical History / Comment(s): pancreatitis,lower back pain, States steroids prescribed by Dr. Chavis., Gall Bladder problems- feeling of fullness. History of Any Multi-Drug Resistant Organisms: None Reported Past Surgical History: Appendectomy, Back Surgery Additional Past Surgical History / Comment(s): pain clinic injections Back Past Anesthesia/Blood Transfusion Reactions: No Reported Reaction Past Psychological History: No Psychological Hx Reported Smoking Status: Never smoker Past Alcohol Use History: Occasional Past Drug Use History: None Reported - Past Family History Father Family Medical History: Cancer Additional Family Medical History / Comment(s): colon Mother Family Medical History: No Reported History Additional Family Medical History / Comment(s): polyps Medications and Allergies Home Medications Medication Instructions Recorded Confirmed Type Hydrocodone/Acetaminophen [[place] 1 tab PO QID PRN #120 tablet 09/30/15 07/11/18 Rx 10-325] Gabapentin 600 mg PO TID PRN 03/18/18 07/11/18 History DULoxetine HCL [Cymbalta] 30 mg PO DAILY 06/21/18 07/11/18 History Lisinopril [Zestril] 10 mg PO HS 07/11/18 07/11/18 History Prednison Dose Pack 1 dose PO DIRECTED 07/11/18 History Famotidine [Pepcid] 20 mg PO DAILY PRN 07/14/18 07/14/18 History Allergies Allergy/AdvReac Type Severity Reaction Status Date / Time No Known Allergies Allergy Verified 07/11/18 09:44 Surgical - Exam Vital Signs Temp Pulse Resp BP Pulse Ox 98.2 F 63 16 169/105 99 07/14/18 08:29 07/14/18 08:29 07/14/18 08:29 07/14/18 08:29 07/14/18 08:29 - General well developed, well nourished, no distress - Eyes PERRL - ENT normal pinna - Neck no masses - Respiratory normal expansion - Cardiovascular Rhythm: regular - Abdomen Abdomen: soft, non tender Assessment and Plan Assessment: Right upper quadrant pain Chronic cholecystitis We will perform laparoscopic cholecystectomy.
[2018-07-14] MEDS ORDERED: GLYCOPYRROLATE 0.2 MG/ML 2 ML VIAL ONE (09:44)
[2018-07-14] MEDS ORDERED: ROCURONIUM BROMIDE 10 MG/ML 10 ML VIAL IV ONE (09:44)
[2018-07-14] MEDS ORDERED: NEOSTIGMINE 1 MG/ML 10 ML VIAL ONE (09:44)
[2018-07-14] MEDS ORDERED: KETOROLAC 30 MG/ML 1 ML VIAL ONE (09:44)
[2018-07-14] MEDS ORDERED: MIDAZOLAM 2 MG/2 ML VIAL ONE (09:44)
[2018-07-14] MEDS ORDERED: fentaNYL (PF) 50 MCG/ML 2 ML AMP ONE (09:44)
[2018-07-14] MEDS ORDERED: SUCCINYLCHOLINE CHLORIDE 100 MG/5 ML SYR IV ONE (09:44)
[2018-07-14] MEDS ORDERED: LIDOCAINE 1% INJ 10MG/ML (20 ML MDV) ONE (09:44)
[2018-07-14] MEDS ORDERED: BUPIVACAIN-EPI 0.25%-1:200,000 30 ML VIAL IJ ONE ×2 (09:53→10:05)
[2018-07-14] MEDS ORDERED: LACTATED RINGERS 1,000 ML IV ONE (10:14)
[2018-07-14] MEDS: HYDROmorphone 0.5 MG/0.5 ML SYRINGE IVP PRN ×4 (10:33→10:49)
[2018-07-14 10:44] VITALS: TEMP 96.8
--- NOTE | 2018-07-14 10:45 | P.OP ---
Date of Procedure: 07/14/18 Preoperative Diagnosis: Cholecystitis Postoperative Diagnosis: Cholecystitis Procedure(s) Performed: Laparoscopic cholecystectomy Anesthesia: GRETA Surgeon: Joni Graves Estimated Blood Loss (ml): 5 Pathology: other (Gallbladder) Condition: stable Disposition: PACU Description of Procedure: The patient was placed on the operating table. The patient received a general endotracheal tube anesthesia. The patients abdomen was prepped and draped in the usual sterile fashion. Through an infraumbilical stab incision, the fascia of the anterior abdominal wall was grasped with a pair of Kochers and then the Veress needle was placed in the peritoneal cavity. Position of the Veress needle was confirmed with positive drop test. The abdomen was then insufflated. After adequate insufflation, the 10 mm trocar was placed in the peritoneal cavity. Following this the laparoscope was placed in the peritoneal cavity. The patient was placed in the head-up, right side up position and then a 5 mm trocar was placed in the right lateral and right subcostal position under direct visualization. A 8 mm trocar was placed in the epigastric position. The gallbladder was grasped in the fundus and infundibulum. Traction on the gallbladder was placed in the lateral and the cephalad positions. The triangle of Calot was visualized.. The cystic duct was bluntly dissected until the union of the cystic duct and common bile duct was seen. A critical view of safety was achieved. The cystic duct was then divided and sealed with the Harmonic scissors. A PDS Endoloop was then placed throughout the cystic duct stump. The cystic artery divided and sealed with the Harmonic scissors. The gallbladder was then removed from the liver bed using Harmonic scissors. The gallbladder was then extracted through the epigastric port site. Operative field was checked for any bleeding spots and Harmonic scissors was used to coagulate the liver bed. The abdomen was irrigated. The trocars were removed. The skin was closed using interrupted 3-0 Vicryl suture. Dermabond dressing were applied. The patient tolerated the procedure well.
[2018-07-14] MEDS: MEPERIDINE 50 MG/ML SYRINGE IVP ONE ×2 (10:56→11:03)
[2018-07-14] MEDS: fentaNYL (PF) 50 MCG/ML 2 ML AMP IVP ONE ×2 (11:09→11:11)
[2018-07-14] MEDS ORDERED: hydrALAZINE HCL 20 MG/ML 1 ML VIAL IVP ONE (11:10)
[2018-07-14 11:33] VITALS: RESP 16
[2018-07-14] MEDS ORDERED: HYDROcodone/APAP 5-325MG 1 EACH TAB PO ONE (11:42)
[2018-07-14 12:14] VITALS: BP 138/90; PULSE 96
== END 2018-07-14 12:56 | disposition home or self-care (01) ==
LOC: OR 07:44
PROVIDERS: ATTEND Surgery
DX: K80.10 Calculus of gallbladder with chronic cholecystitis without obstruction (principal); K21.9 Gastro-esophageal reflux disease without esophagitis; I10 Essential (primary) hypertension; K85.90 Acute pancreatitis without necrosis or infection, unspecified; M54.5 Low back pain; Z79.891 Long term (current) use of opiate analgesic; Z79.899 Other long term (current) drug therapy; Z79.52 Long term (current) use of systemic steroids; Z80.0 Family history of malignant neoplasm of digestive organs
CPT/HCPCS: 47562; 88304; J2250; J0360; J1644; J1100; J2710; J2175; J2405; J2001; J3010; J1885; J0330; J1170; J0690

== ENCOUNTER 2018-11-29 11:51 | Emergency (ER) | payer OTHER ==
[2018-11-29 12:26] VITALS: BP 156/97; PULSE 73; TEMP 99
[2018-11-29] MEDS ORDERED: SODIUM CHLORIDE 0.9% 1,000 ML IV STA (13:06)
[2018-11-29] MEDS ORDERED: ONDANSETRON 4 MG/2 ML VIAL IVP STA (13:06)
[2018-11-29] MEDS ORDERED: PANTOPRAZOLE 40 MG/10 ML VIAL IVP STA (13:06)
[2018-11-29] MEDS ORDERED: KETOROLAC 30 MG/ML 1 ML VIAL IVP STA (13:35)
[2018-11-29 13:39] LABS: Basophils # (A) 0.1 k/uL (0-0.2); Basophils % (A) 1 %; Eosinophils # (A) 0.1 k/uL (0-0.7); Eosinophils % (A) 1 %; HCT 42.8 % (39.0-53.0); HGB 15.3 gm/dL (13.0-17.5); Lymphocytes # (A) 1.6 k/uL (1.0-4.8); Lymphocytes % (A) 12 %; MCH 30.7 pg (25.0-35.0); MCHC 35.7 g/dL (31.0-37.0); Mean Platelet Volume 6.9; Monocytes # (A) 0.5 k/uL (0-1.0); Monocytes % (A) 4 %; Neutrophils # (A) 10.3 k/uL (1.3-7.7); Neutrophils % (A) 82 %; Platelet Count 227 k/uL (150-450); RBC 4.98 m/uL (4.30-5.90); RDW 12.3 % (11.5-15.5); WBC 12.7 k/uL (3.8-10.6)
--- NOTE | 2018-11-29 13:39 | ED ---
Abdominal Pain HPI - General Chief Complaint: Abdominal Pain Stated Complaint: Pancreatitis Time Seen by Provider: 11/29/18 12:52 Source: patient Mode of arrival: ambulatory Limitations: no limitations - History of Present Illness Initial Comments: Patient is a 48-year-old male with history of pancreatitis is presenting to emergency Department with chief complaint of abdominal pain nausea vomiting. Patient reports he developed left upper quadrant abdominal pain about 2 days ago and is gradually increased in severity. Patient also reports nausea with multiple episodes of vomiting. Patient reports he had a cholecystectomy several months ago secondary to choledocholithiasis in his stool texture has never return to normal. Patient reports over the last 2 days the texture of the stool is more diarrhea than normal. Patient reports low back pain however he states this is a chronic issue for him. Patient denies any urinary symptoms. Patient denies any chest pain, shortness of breath. patient reports taking [id number] analgesics minimal improve. Patient denies excessive alchool drinking. Patient denies saddle anesthesia, urinary or bowel incontinence. Patient denies any trauma. - Related Data Home Medications Medication Instructions Recorded Confirmed Gabapentin 600 mg PO TID PRN 03/18/18 11/29/18 DULoxetine HCL [Cymbalta] 30 mg PO DAILY 06/21/18 11/29/18 Lisinopril [Zestril] 10 mg PO DAILY 07/11/18 11/29/18 Previous Rx's Medication Instructions Recorded HYDROcodone/APAP 5-325MG [[place] 1 tab PO Q6HR PRN #10 tab 07/14/18 5-325] Ondansetron Odt [Zofran Odt] 4 mg PO Q8HR PRN #10 tab 11/29/18 Allergies Allergy/AdvReac Type Severity Reaction Status Date / Time No Known Allergies Allergy Verified 11/29/18 13:11 Review of Systems ROS Statement: Those systems with pertinent positive or pertinent negative responses have been documented in the HPI. ROS Other: All systems not noted in ROS Statement are negative. Past Medical History Past Medical History: GERD/Reflux, Hypertension, Musculoskeletal Disorder Additional Past Medical History / Comment(s): pancreatitis,lower back pain, States steroids prescribed by Dr. Chavis., Gall Bladder problems- feeling of fullness. History of Any Multi-Drug Resistant Organisms: None Reported Past Surgical History: Appendectomy, Back Surgery Additional Past Surgical History / Comment(s): pain clinic injections Back, gallbladder removed Past Anesthesia/Blood Transfusion Reactions: No Reported Reaction Past Psychological History: No Psychological Hx Reported Smoking Status: Never smoker Past Alcohol Use History: Occasional Past Drug Use History: None Reported - Past Family History Father Family Medical History: Cancer Additional Family Medical History / Comment(s): colon Mother Family Medical History: No Reported History Additional Family Medical History / Comment(s): polyps General Exam Limitations: no limitations General appearance: alert, in no apparent distress Head exam: Present: atraumatic, normocephalic, normal inspection Eye exam: Present: normal appearance Pupils: Present: normal accommodation ENT exam: Present: normal exam, normal oropharynx, mucous membranes moist Neck exam: Present: normal inspection, full ROM Respiratory exam: Present: normal lung sounds bilaterally. Absent: chest wall tenderness Cardiovascular Exam: Present: regular rate, normal rhythm, normal heart sounds GI/Abdominal exam: Present: soft, tenderness (Left upper quadrant tenderness. Negative McBurney point tenderness, negative psoas, negative obturator, negative Rovsing.), normal bowel sounds. Absent: distended, guarding, rebound, rigid, mass, hernia Extremities exam: Present: normal inspection, full ROM Back exam: Present: normal inspection, full ROM Neurological exam: Present: alert, oriented X3 Psychiatric exam: Present: normal affect, normal mood Skin exam: Present: warm, intact, normal color Course Vital Signs 11/29/18 11/29/18 12:24 13:47 Temperature 99.0 F Pulse Rate 73 Respiratory 18 16 Rate Blood Pressure 156/97 O2 Sat by Pulse 100 Oximetry Medical Decision Making - Medical Decision Making Patient is a 48-year-old male presenting to emergency Department with a chief complaint of abdominal pain. Patient given analgesia, fluids, antiemetics. Patient reports only mild improvement in pain relief however he states the nausea has resolved. Labs indicate mild leukocytosis however I suspect this to be secondary to nausea or vomiting. KUB is indicative of centralized bowel loops with air-fluid levels suggesting a possible ileus. I advised patient to have a CT of the abdomen and pelvis, however patient declined. I advised the patient to follow up with a GI specialist for further medical management. I suspect the patient to have acid reflux or gastritis. Strict return parameters were thoroughly discussed with patient was under sitting and agreeable. Case discussed physician. - Lab Data Result diagrams: 11/29/18 13:25 10/22/19 13:25 Lab Results 11/29/18 11/29/18 11/29/18 Range/Units 13:25 13:25 13:25 WBC 12.7 H (3.8-10.6) k/uL RBC 4.98 (4.30-5.90) m/uL Hgb 15.3 (13.0-17.5) gm/dL Hct 42.8 (39.0-53.0) % MCV 86.0 (80.0-100.0) fL MCH 30.7 (25.0-35.0) pg MCHC 35.7 (31.0-37.0) g/dL RDW 12.3 (11.5-15.5) % Plt Count 227 (150-450) k/uL Neutrophils % 82 % Lymphocytes % 12 % Monocytes % 4 % Eosinophils % 1 % Basophils % 1 % Neutrophils # 10.3 H (1.3-7.7) k/uL Lymphocytes # 1.6 (1.0-4.8) k/uL Monocytes # 0.5 (0-1.0) k/uL Eosinophils # 0.1 (0-0.7) k/uL Basophils # 0.1 (0-0.2) k/uL Sodium 141 (137-145) mmol/L Potassium 3.3 L (3.5-5.1) mmol/L Chloride 100 (98-107) mmol/L Carbon Dioxide 28 (22-30) mmol/L Anion Gap 13 mmol/L BUN 10 (9-20) mg/dL Creatinine 0.90 (0.66-1.25) mg/dL Est GFR (CKD-EPI)AfAm >90 (>60 ml/min/1.73 sqM) Est GFR (CKD-EPI)NonAf >90 (>60 ml/min/1.73 sqM) Glucose 111 H (74-99) mg/dL Calcium 10.2 (8.4-10.2) mg/dL Total Bilirubin 1.5 H (0.2-1.3) mg/dL AST 29 (17-59) U/L ALT 26 (21-72) U/L Alkaline Phosphatase 69 (38-126) U/L Total Protein 7.9 (6.3-8.2) g/dL Albumin 4.9 (3.5-5.0) g/dL Amylase 72 (30-110) U/L Lipase 218 (23-300) U/L Urine Color Light Yellow Urine Appearance Clear (Clear) Urine pH 8.0 (5.0-8.0) Ur Specific [place] 1.003 (1.001-1.035) Urine Protein Negative (Negative) Urine Glucose (UA) Negative (Negative) Urine Ketones Negative (Negative) Urine Blood Trace H (Negative) Urine Nitrite Negative (Negative) Urine Bilirubin Negative (Negative) Urine Urobilinogen <2.0 (<2.0) mg/dL Ur Leukocyte Esterase Negative (Negative) Urine RBC 1 (0-5) /hpf Urine WBC <1 (0-5) /hpf Disposition Clinical Impression: Abdominal pain, left upper quadrant, Nausea & vomiting Disposition: HOME SELF-CARE Condition: Stable Instructions (If sedation given, give patient instructions): Abdominal Pain (ED) Additional Instructions: Please take prescribed medication as directed. Please return to emergency department symptoms worsen. Please follow with a GI specialist. Prescriptions: Ondansetron Odt [Zofran Odt] 4 mg PO Q8HR PRN #10 tab PRN Reason: Nausea Is patient prescribed a controlled substance at d/c from ED?: No Referrals: Yonatan Fletcher III, MD [Primary Care Provider] - 1-2 days Yariel Swan MD [STAFF PHYSICIAN] - 1-2 days Time of Disposition: 15:01
[2018-11-29 13:46] LABS: ALT 26 U/L (21-72); AST 29 U/L (17-59); African American GFR (CKD) >90 (>60 ml/min/1.73 sqM); Albumin 4.9 g/dL (3.5-5.0); Alkaline Phosphatase 69 U/L (38-126); Amylase 72 U/L (30-110); Anion Gap 13 mmol/L; Blood Urea Nitrogen 10 mg/dL (9-20); Calcium 10.2 mg/dL (8.4-10.2); Carbon Dioxide 28 mmol/L (22-30); Chloride 100 mmol/L (98-107); Glucose 111 mg/dL (74-99); Potassium 3.3 mmol/L (3.5-5.1); Sodium 141 mmol/L (137-145); Total Bilirubin 1.5 mg/dL (0.2-1.3); Total Protein 7.9 g/dL (6.3-8.2)
[2018-11-29 13:48] VITALS: RESP 16
[2018-11-29 14:03] LABS: Appearance,Urine Clear (Clear); Bilirubin,Urine Negative (Negative); Blood,Urine Trace (Negative); Color,Urine Light Yellow; Glucose,Urine (UA) Negative (Negative); Ketones,Urine Negative (Negative); Leukocyte Esterase,Urine Negative (Negative); Nitrite,Urine Negative (Negative); Protein,Urine Negative (Negative); RBC,Urine 1 /hpf (0-5); Specific Gravity,Urine 1.003 (1.001-1.035); Urobilinogen,Urine <2.0 mg/dL (<2.0); WBC,Urine <1 /hpf (0-5)
--- NOTE | 2018-11-29 14:17 | XR ---
EXAMINATION TYPE: XR KUB DATE OF EXAM: 11/29/2018 2:08 PM CLINICAL HISTORY: Left lower quadrant pain radiating to the groin and back. TECHNIQUE: Single upright image of the abdomen is obtained. COMPARISON: 05/27/2018. FINDINGS: There are scattered air-fluid levels in the mid abdomen and cluster loops of centralized sm all bowel. No dilated small bowel. Air is noted in the rectum. No dilated large bowel. Liver is elong ated extending to the iliac crest. Osseous structures appear intact. Lung bases are well aerated. IMPRESSION: Centralized loops of small bowel demonstrating air-fluid levels are favored to represent ileus as there are currently no dilated loops of bowel and air is seen in the rectum.
== END 2018-11-29 15:05 | disposition home or self-care (01) ==
LOC: EC 11:51
DX: R10.12 Left upper quadrant pain (principal); R11.2 Nausea with vomiting, unspecified; D72.829 Elevated white blood cell count, unspecified; K21.9 Gastro-esophageal reflux disease without esophagitis; I10 Essential (primary) hypertension; M54.5 Low back pain; Z79.52 Long term (current) use of systemic steroids; Z79.899 Other long term (current) drug therapy; Z90.49 Acquired absence of other specified parts of digestive tract; Z87.19 Personal history of other diseases of the digestive system
CPT/HCPCS: 36415; 80053; 82150; 83690; 85025; 81001; 74018; 99284; 96374; 96375 ×2; 96361; J2405; J1885; C9113

== ENCOUNTER 2019-03-22 10:34 | Inpatient (IN) | payer OTHER ==
[2019-03-22] MEDS ORDERED: SODIUM CHLORIDE 0.9% 2,000 ML IV STA (10:54)
[2019-03-22] MEDS ORDERED: ONDANSETRON 4 MG/2 ML VIAL IVP STA (11:23)
[2019-03-22] MEDS ORDERED: HYDROmorphone 0.5 MG/0.5 ML SYRINGE IVP STA (11:23)
[2019-03-22 11:41] LABS: Basophils % (A) 1 %; Eosinophils # (A) 0.1 k/uL (0-0.7); Eosinophils % (A) 2 %; HCT 45.3 % (39.0-53.0); HGB 15.4 gm/dL (13.0-17.5); Lymphocytes % (A) 15 %; MCH 31.2 pg (25.0-35.0); MCHC 33.9 g/dL (31.0-37.0); MCV 92.2 fL (80.0-100.0); Mean Platelet Volume 7.3; Monocytes # (A) 0.4 k/uL (0-1.0); Monocytes % (A) 6 %; Neutrophils % (A) 74 %; Platelet Count 340 k/uL (150-450); RBC 4.92 m/uL (4.30-5.90); WBC 6.7 k/uL (3.8-10.6)
[2019-03-22 11:52] LABS: ALT 9 U/L (4-49); AST 23 U/L (17-59); African American GFR (CKD) >90 (>60 ml/min/1.73 sqM); Albumin 3.9 g/dL (3.5-5.0); Alkaline Phosphatase 117 U/L (38-126); Amylase 69 U/L (30-110); Anion Gap 7 mmol/L; Blood Urea Nitrogen 8 mg/dL (9-20); Calcium 9.4 mg/dL (8.4-10.2); Carbon Dioxide 32 mmol/L (22-30); Chloride 98 mmol/L (98-107); Glucose 122 mg/dL (74-99); Non-African American GFR(CKD) >90 (>60 ml/min/1.73 sqM); Potassium 3.8 mmol/L (3.5-5.1); Sodium 137 mmol/L (137-145); Total Bilirubin 0.7 mg/dL (0.2-1.3); Total Protein 6.8 g/dL (6.3-8.2)
--- NOTE | 2019-03-22 12:17 | CT ---
EXAMINATION TYPE: CT abdomen pelvis w con DATE OF EXAM: 03/22/2019 COMPARISON: HISTORY: pain CT DLP: 644 mGycm Automated exposure control for dose reduction was used. TECHNIQUE: Helical acquisition of images from the lung bases through the pelvis have been completed. CONTRAST: Performed without Oral Contrast and with IV Contrast, patient injected with 100 mL of Isovue 300. FINDINGS: LUNG BASES: No significant abnormality is appreciated. AORTA: No significant abnormality is appreciated. LIVER/GB: Faint foci of low attenuation present within the right lobe of the liver, axial image 25 me asuring approximately 1 cm, additional areas of low-attenuation are scattered within the liver, at le ast 6 lesions are present, largest within the posterior right lobe measures approximately 12 mm.. PANCREAS: Mixed attenuation mass at the tail of pancreas measures approximately 6 x 7 x 5.5 cm. There is surrounding inflammatory change in the mesenteric fat. Some mild prominence of the hepatic duct a t the head of the pancreas.. SPLEEN: No significant abnormality is seen. ADRENALS: No significant abnormality is seen. KIDNEYS: No significant abnormality is seen. REPRODUCTIVE ORGANS: Prostate is enlarged. BOWEL: No significant abnormality is seen. FREE AIR: No Free Air visible. ASCITES: None visible. PELVIC ADENOPATHY: None visualized. RETROPERITONEAL ADENOPATHY: No Retroperitoneal Adenopathy visible. URINARY BLADDER: No significant abnormality is seen. OSSEOUS STRUCTURES: Postprocedural changes are present lower lumbar spine, there is degenerative dis c disease with loss of disc height, minimal retrolisthesis L4-5, associated vacuum phenomenon.. IMPRESSION: METASTATIC PANCREATIC CARCINOMA
--- NOTE | 2019-03-22 12:21 | ED ---
Abdominal Pain HPI - General Chief Complaint: Abdominal Pain Stated Complaint: abd pain Time Seen by Provider: 03/22/19 10:54 Source: patient, RN notes reviewed Mode of arrival: ambulatory Limitations: no limitations - History of Present Illness Initial Comments: This a 48-year-old male presents emergency Department chief complaint abdominal pain. Patient states his been having worsening abdominal pain over several weeks. Patient states that he was holding follow-up with GI he states he try to follow up with local GI but they would not see him secondary to not accepting his insurance. He does scheduled appointment with GI in [facility] but this is not until May. He states that he was advised that he needed imaging of his abdomen. Patient states the pain is tenderness mid abdomen and left side. He occasionally has nausea and states that he can barely eat this point. He has had some loose stools denies any melanotic stools. Patient denies any chest pain, shortness breath no fevers chills she's had a prior cholecystectomy and appendectomy. - Related Data Home Medications Medication Instructions Recorded Confirmed Gabapentin 600 mg PO TID PRN 03/18/18 11/29/18 DULoxetine HCL [Cymbalta] 30 mg PO DAILY 06/21/18 11/29/18 Lisinopril [Zestril] 10 mg PO DAILY 07/11/18 11/29/18 Previous Rx's Medication Instructions Recorded HYDROcodone/APAP 5-325MG [[place] 1 tab PO Q6HR PRN #10 tab 07/14/18 5-325] Ondansetron Odt [Zofran Odt] 4 mg PO Q8HR PRN #10 tab 11/29/18 Allergies Allergy/AdvReac Type Severity Reaction Status Date / Time No Known Allergies Allergy Verified 03/22/19 10:42 Review of Systems ROS Statement: Those systems with pertinent positive or pertinent negative responses have been documented in the HPI. ROS Other: All systems not noted in ROS Statement are negative. Past Medical History Past Medical History: GERD/Reflux, Hypertension, Musculoskeletal Disorder Additional Past Medical History / Comment(s): pancreatitis,lower back pain, States steroids prescribed by Dr. Chavis., Gall Bladder problems- feeling of fullness. History of Any Multi-Drug Resistant Organisms: None Reported Past Surgical History: Appendectomy, Back Surgery Additional Past Surgical History / Comment(s): pain clinic injections Back, gallbladder removed Past Anesthesia/Blood Transfusion Reactions: No Reported Reaction Past Psychological History: No Psychological Hx Reported Smoking Status: Never smoker Past Alcohol Use History: Occasional Past Drug Use History: None Reported - Past Family History Father Family Medical History: Cancer Additional Family Medical History / Comment(s): colon Mother Family Medical History: No Reported History Additional Family Medical History / Comment(s): polyps General Exam Limitations: no limitations General appearance: alert, in no apparent distress Head exam: Present: atraumatic, normocephalic, normal inspection Eye exam: Present: normal appearance, PERRL, EOMI. Absent: scleral icterus, conjunctival injection, periorbital swelling ENT exam: Present: normal exam, normal oropharynx, mucous membranes moist Neck exam: Present: normal inspection, full ROM. Absent: tenderness, meningismus, lymphadenopathy Respiratory exam: Present: normal lung sounds bilaterally. Absent: respiratory distress, wheezes, rales, rhonchi, stridor Cardiovascular Exam: Present: regular rate, normal rhythm, normal heart sounds. Absent: systolic murmur, diastolic murmur, rubs, gallop, clicks GI/Abdominal exam: Present: soft, tenderness (Moderate mid abdominal tenderness), normal bowel sounds. Absent: distended, guarding, rebound, rigid Back exam: Absent: CVA tenderness (R), CVA tenderness (L) Neurological exam: Present: alert Skin exam: Present: warm, dry, intact, normal color. Absent: rash Course Vital Signs 03/22/19 10:39 Temperature 98.1 F Pulse Rate 63 Respiratory 16 Rate Blood Pressure 141/103 O2 Sat by Pulse 100 Oximetry Medical Decision Making - Medical Decision Making Patient's labs were reviewed, essentially unremarkable. CT shows evidence of metastatic pancreatic cancer. Patient was updated on CT results will be admitted for further evaluation by oncology, GI. - Lab Data Result diagrams: 03/22/19 11:24 03/22/19 11:24 Lab Results 03/22/19 03/22/19 03/22/19 Range/Units 11:24 11:24 11:24 WBC 6.7 (3.8-10.6) k/uL RBC 4.92 (4.30-5.90) m/uL Hgb 15.4 (13.0-17.5) gm/dL Hct 45.3 (39.0-53.0) % MCV 92.2 (80.0-100.0) fL MCH 31.2 (25.0-35.0) pg MCHC 33.9 (31.0-37.0) g/dL RDW 14.0 (11.5-15.5) % Plt Count 340 (150-450) k/uL Neutrophils % 74 % Lymphocytes % 15 % Monocytes % 6 % Eosinophils % 2 % Basophils % 1 % Neutrophils # 5.0 (1.3-7.7) k/uL Lymphocytes # 1.0 (1.0-4.8) k/uL Monocytes # 0.4 (0-1.0) k/uL Eosinophils # 0.1 (0-0.7) k/uL Basophils # 0.0 (0-0.2) k/uL Sodium 137 (137-145) mmol/L Potassium 3.8 (3.5-5.1) mmol/L Chloride 98 (98-107) mmol/L Carbon Dioxide 32 H (22-30) mmol/L Anion Gap 7 mmol/L BUN 8 L (9-20) mg/dL Creatinine 0.86 (0.66-1.25) mg/dL Est GFR (CKD-EPI)AfAm >90 (>60 ml/min/1.73 sqM) Est GFR (CKD-EPI)NonAf >90 (>60 ml/min/1.73 sqM) Glucose 122 H (74-99) mg/dL Plasma Lactic Acid [place] 1.0 (0.7-2.0) mmol/L Calcium 9.4 (8.4-10.2) mg/dL Total Bilirubin 0.7 (0.2-1.3) mg/dL AST 23 (17-59) U/L ALT 9 (4-49) U/L Alkaline Phosphatase 117 (38-126) U/L Total Protein 6.8 (6.3-8.2) g/dL Albumin 3.9 (3.5-5.0) g/dL Amylase 69 (30-110) U/L Lipase 281 (23-300) U/L Disposition Clinical Impression: Pancreatic cancer Disposition: ADMITTED IP TO THIS [facility] Condition: Serious Referrals: Yonatan Fletcher III, MD [Primary Care Provider] - 1-2 days
[2019-03-22 12:50] LABS: Appearance,Urine Clear (Clear); Bilirubin,Urine Negative (Negative); Blood,Urine Negative (Negative); Color,Urine Yellow; Glucose,Urine (UA) Negative (Negative); Ketones,Urine 1+ (Negative); Leukocyte Esterase,Urine Negative (Negative); Nitrite,Urine Negative (Negative); Protein,Urine Negative (Negative); Urobilinogen,Urine <2.0 mg/dL (<2.0)
[2019-03-22] MEDS ORDERED: HYDROmorphone 1 MG/ML 1 ML SYRINGE IVP STA (12:59)
[2019-03-22] MEDS ORDERED: ONDANSETRON 4 MG/2 ML VIAL IVP PRN (13:00)
[2019-03-22] MEDS ORDERED: NALOXONE 0.4 MG/ML 1 ML VIAL IV PRN (13:00)
[2019-03-22] MEDS: HYDROmorphone 0.5 MG/0.5 ML SYRINGE IVP PRN (13:07)
[2019-03-22 13:17] LABS: Specific Gravity,Urine >1.050 (1.001-1.035)
[2019-03-22] MEDS: SODIUM CHLORIDE 0.9% 1,000 ML IV SCH (14:15)
[2019-03-22] MEDS: LORazepam 2 MG/ML INJ IV PRN (14:21)
[2019-03-22] MEDS ORDERED: LISINOPRIL 10 MG TAB PO STA (16:19)
[2019-03-22] MEDS ORDERED: GABAPENTIN 300 MG CAP PO PRN (16:19)
[2019-03-22] MEDS: HYDROmorphone 1 MG/ML 1 ML SYRINGE IVP PRN ×2 (18:05→21:15)
[2019-03-22] MEDS ORDERED: hydrALAZINE HCL 20 MG/ML 1 ML VIAL IVP STA (18:55)
--- NOTE | 2019-03-22 23:48 | P.HPIM ---
History of Present Illness H&P Date: 03/22/19 Chief Complaint: Abdominal pain Patient is a 48-year-old male with a known history of hypertension, GERD and history of pancreatitis and chronic low back pain status post surgery and recent cholecystectomy in July 2018 came to ER with the complaints of abdominal pain worsening for the past 7-8 days. Pain is mainly epigastric and left upper quadrant. No other radiation. No aggravating or relieving factors. Patient does have nausea and unable to tolerate any oral diet. Denied any hematemesis or melena. Denied any recent alcohol use. Patient states that he was holding follow-up with GI he states he try to follow up with local GI but they would not see him secondary to not accepting his insurance. He does scheduled appointment with GI in [facility] but this is not until May. No fever no chills. No cough or sputum production. No chest pain or shortness of breath. CT of the abdomen pelvis showed mixed attenuation mass at the tail of pancreas measuring approximately 6 x 7 x 5.5 cm there is surrounding inflammatory change in the mesenteric fat. Some mild prominence of the hepatic duct at the head of the pancreas. Metastatic pancreatic carcinoma. Lipase level 281. all other laboratory data reviewed. Review of Systems Constitutional: Patient denies any fever or chills . No generalized weakness patient does have weight loss. Abdomen: Patient does have nausea and was of vomiting. No diarrhea. Abdominal pain present.. Cardiovascular: Patient denies any chest pain or short of breath no palpitations. Respiratory: patient denied any cough is from production. No shortness of breath Neurologic: Patient denied any numbness or tingling headache. Musculoskeletal: Patient denies any complaints of joint swelling or deformity. Skin: Negative Psychiatric: Negative Endocrine: No heat or cold intolerance. No recent weight gain. Genitourinary: No dysuria or hematuria. All other 14 point ROS negative except the above Past Medical History Past Medical History: GERD/Reflux, Hypertension Additional Past Medical History / Comment(s): Pancreatitis, chronic low back pain, insomnia. History of Any Multi-Drug Resistant Organisms: None Reported Past Surgical History: Appendectomy, Back Surgery, Cholecystectomy Additional Past Surgical History / Comment(s): Low back surgery/coflex device, pain clinic procedures, colonoscopy Past Anesthesia/Blood Transfusion Reactions: No Reported Reaction Smoking Status: Never smoker - Past Family History Father Family Medical History: Cancer Additional Family Medical History / Comment(s): colon cancer with surgery. Mother Family Medical History: No Reported History Additional Family Medical History / Comment(s): Benign polyps Medications and Allergies Home Medications Medication Instructions Recorded Confirmed Type Gabapentin 600 mg PO TID PRN 03/18/18 03/22/19 History Lisinopril [Zestril] 10 mg PO DAILY 07/11/18 03/22/19 History Hydrocodone/Acetaminophen [[place] 1 tab PO Q6H PRN 03/22/19 03/22/19 History 10-325] Allergies Allergy/AdvReac Type Severity Reaction Status Date / Time No Known Allergies Allergy Verified 03/22/19 14:18 Physical Exam Vitals: Vital Signs Temp Pulse Resp BP Pulse Ox 03/22/19 14:13 98.0 F 89 18 160/100 97 03/22/19 10:39 98.1 F 63 16 141/103 100 Intake and Output 03/22/19 03/22/19 03/22/19 06:59 14:59 22:59 Other: Weight 70.307 kg PHYSICAL EXAMINATION: Patient is lying in the bed comfortably, no acute distress, awake alert and oriented.. HEENT: Normocephalic. Neck is supple. Pupils reactive. Nostrils clear. Oral cavity is moist. Ears reveal no drainage. Neck reveals no JVD, carotid bruits, or thyromegaly. CHEST EXAMINATION: Trachea is central. Symmetrical expansion. Lung bear clear to auscultation and percussion. CARDIAC: Normal S1, S2 with no gallops. No murmurs ABDOMEN: Soft. Epigastric tenderness. No guarding no rigidity. Bowel sounds normal. No organomegaly. No abdominal bruits. Extremities: reveal no edema. No clubbing or cyanosis Neurologically awake, alert, oriented x3 with well-coordinated movements. No focal deficits noted Skin: No rash or skin lesions. Psychiatric: Coperative. Nonsuicidal Musculoskeletal: No joint swelling or deformity. Normal range of motion. Results CBC & Chem 7: 03/22/19 11:24 03/22/19 11:24 Labs: Abnormal Lab Results - Last 24 Hours (Table) 03/22/19 03/22/19 Range/Units 11:24 12:38 Carbon Dioxide 32 H (22-30) mmol/L BUN 8 L (9-20) mg/dL Glucose 122 H (74-99) mg/dL Ur Specific [place] >1.050 H (1.001-1.035) Urine Ketones 1+ H (Negative) Thrombosis Risk Factor Assmnt - DVT/VTE Prophylaxis DVT/VTE Prophylaxis: Pharmacologic Prophylaxis ordered - Choose All That Apply Any of the Below Risk Factors Present?: Yes Each Factor Represents 1 point: Age 41-60 years Other Risk Factors: No Other congenital or acquired thrombophilia - If yes, enter type in comment: No Thrombosis Risk Factor Assessment Total Risk Factor Score: 1 Thrombosis Risk Factor Assessment Level: Low Risk Assessment and Plan Assessment: Abdominal pain likely due to metastatic pancreatic cancer as per computed tomography scan of the abdominal pelvis. History of cholecystectomy in June 2018 Chronic low back pain and history of surgery GERD Hypertension DVT prophylaxis. No history of smoking Plan: Patient be continued on pain management with Dilaudid. will check AFB and CA-19-9 , GI and oncology was consulted. Symptomatic management for nausea and vomiting. Further recommendations based on the clinical course. Time with Patient: Greater than 30
[2019-03-23] MEDS: SODIUM CHLORIDE 0.9% 1,000 ML IV SCH ×2 (06:06→17:17)
[2019-03-23] MEDS: HYDROmorphone 0.5 MG/0.5 ML SYRINGE IVP PRN (08:09)
[2019-03-23] MEDS: LISINOPRIL 10 MG TAB PO SCH (08:11)
[2019-03-23] MEDS ORDERED: PANTOPRAZOLE 40 MG/10 ML VIAL IV SCH (09:00)
--- NOTE | 2019-03-23 09:34 | P.CONS ---
History of Present Illness - Reason for Consult Consult date: 03/23/19 pancreatic mass Requesting physician: Andre Marina - Chief Complaint abd pain - History of Present Illness Mr. Romero is a very pleasant 48 year old male with a history of heavy ETOH use, less use the last few months. He has been having episodes of abd pain since at least July of 2018, worked up on each occasion, had choley last year, suspected noro virus infection and at least one other episode of suspected pancreatitis. He was told in Nov 2018 that he had a pancreatic mass but, he had to be referred out of town as his insurance is not accepted locally. His appt is in May. Currently his pain is controlled, he feels better then on admit, no fevers, s weats, no notable wt. loss, chest pain, KATLYN, new cough, he has been taking PPI with some improvement in epigastric discomfort, no recent diarrhea, acute changes in bladder habits, swelling, bleeding, neurological symptoms. Review of Systems 14 point ROS is negative except as stated in HPI Past Medical History Past Medical History: GERD/Reflux, Hypertension Additional Past Medical History / Comment(s): Pancreatitis, chronic low back pain, insomnia. History of Any Multi-Drug Resistant Organisms: None Reported Past Surgical History: Appendectomy, Back Surgery, Cholecystectomy Additional Past Surgical History / Comment(s): Low back surgery/coflex device, pain clinic procedures, colonoscopy Past Anesthesia/Blood Transfusion Reactions: No Reported Reaction Past Psychological History: No Psychological Hx Reported Smoking Status: Never smoker Past Alcohol Use History: Heavy (few beers occasionally recently) Past Drug Use History: Unable to Obtain - Past Family History Father Family Medical History: Cancer (colon) Additional Family Medical History / Comment(s): colon cancer with surgery. Mother Family Medical History: No Reported History Additional Family Medical History / Comment(s): Benign polyps Medications and Allergies Home Medications Medication Instructions Recorded Confirmed Type Gabapentin 600 mg PO TID PRN 03/18/18 03/22/19 History Lisinopril [Zestril] 10 mg PO DAILY 07/11/18 03/22/19 History Hydrocodone/Acetaminophen [[place] 1 tab PO Q6H PRN 03/22/19 03/22/19 History 10-325] Allergies Allergy/AdvReac Type Severity Reaction Status Date / Time No Known Allergies Allergy Verified 03/22/19 14:18 Physical Exam Vitals: Vital Signs Temp Pulse Pulse Resp BP BP Pulse Ox 03/23/19 05:00 97.4 F L 66 18 140/100 98 03/22/19 21:15 96.1 F L 66 16 177/112 100 03/22/19 18:00 68 18 167/101 99 03/22/19 14:13 98.0 F 89 18 160/100 97 03/22/19 10:39 98.1 F 63 16 141/103 100 Intake and Output 03/22/19 03/23/19 03/23/19 22:59 06:59 14:59 Intake Total 150 600 Balance 150 600 Intake: Intake, IV Titration 150 600 Amount Sodium Chloride 0.9% 1, 150 600 000 ml @ 75 mls/hr IV . [id number] [facility] Rx#:[id number] - Constitutional General appearance: average body habitus, cooperative, no acute distress - EENT Eyes: anicteric sclerae, EOMI ENT: hearing grossly normal, normal oropharynx - Neck Neck: no lymphadenopathy - Respiratory Respiratory: bilateral: CTA - Cardiovascular Rhythm: regular Heart sounds: normal: S1, S2 Abnormal Heart Sounds: no systolic murmur, no diastolic murmur, no rub, no S3 Gallop, no S4 Gallop, no click, no other leg Peripheral Edema: bilateral: None - Gastrointestinal General gastrointestinal: no absent bowel sounds, no decreased bowel sounds, no distended, no hepatomegaly, no hyperactive bowel sounds, normal bowel sounds, no organomegaly, no rigid, no scaphoid, soft, no splenomegaly, tenderness, no umbilical hernia, no ventral hernia - Integumentary bronzed coloring Integumentary: normal turgor - Neurologic Neurologic: CNII-XII intact - Musculoskeletal Musculoskeletal: strength equal bilaterally - Psychiatric Psychiatric: A&O x's 3, appropriate affect, intact judgment & insight Results CBC & Chem 7: 03/22/19 11:24 03/22/19 11:24 Labs: Abnormal Lab Results - Last 24 Hours (Table) 03/22/19 03/22/19 Range/Units 11:24 12:38 Carbon Dioxide 32 H (22-30) mmol/L BUN 8 L (9-20) mg/dL Glucose 122 H (74-99) mg/dL Ur Specific [place] >1.050 H (1.001-1.035) Urine Ketones 1+ H (Negative) CT scan - abdomen: report reviewed CT scan - pelvis: report reviewed Assessment and Plan (1) Pancreatic mass Narrative/Plan: Dr. Samuel reviewed with the pt the pancreatic tail mass, suspicious/ill defined lesions in the liver as suspicious for malignancy but, need biopsy to confirm. MRI of liver ordered for further evaluation to see if there is suspicious lesion that can be a target for biopsy. If no target for biopsy recommendation is for [facility]. Pt has problems with transportation, case reviewed with CM to see if able to find him some transport. Reviewed with the pt the tumor markers that were drawn, they were not elevated. Reviewed the use of tumor markers when they are WNL-does not mean that the lesions are not cancerous, need to have biopsy for confirmation. All of pt questions were answered to his satisfaction. Current Visit: Yes Status: Acute Priority: High Code(s): K86.89 - OTHER SPECIFIED DISEASES OF PANCREAS SNOMED Code(s): 995966196 Plan: Doctor attests: I performed a history and physical examination of this patient, developed impression and plan of care. Discussed with dictator. I agree with dictators note, documented as a scribe.
[2019-03-23 11:29] VITALS: BMI 21.3
[2019-03-23] MEDS: HYDROcodone/APAP 10-325MG 1 EACH TAB PO PRN ×2 (11:58→18:08)
[2019-03-23] MEDS: LORazepam 2 MG/ML INJ IV PRN ×2 (13:41→19:19)
--- NOTE | 2019-03-23 17:27 | MR ---
MR liver with and without contrast HISTORY: Pancreatic mass, liver masses Multiplanar multisequence and postcontrast images obtained through the liver. Correlation to CT scan 03/22/2019. There is motion on the exam. Multiple T2 intense foci are scattered within the liver as noted on prior CT. Axial image #36 shows a focus of central enhancement, there is peripheral intermediate signal, lesion measures approximately 15 mm in size. Axial image #57 shows a similar appearing lesion measuring 12 mm in the right lobe of the liver. Anterior margin of the left lobe of the liver at this level shows a lesion measuring 12 m m and shows enhancement. On axial image 73 2 additional lesions are present measuring approximately 1 5 mm in the posterior right lobe and 9 mm adjacent to the liver capsule lateral aspect of the right l obe. Additional lesion on axial image 86 is subcentimeter in size in the right lobe and not well seen postcontrast. Left lobe lesion on axial image #90 present in the medial segment is subcentimeter in size not as well seen postcontrast. Small subcentimeter focus on axial image 81 present in the associate java developer ior right lobe shows enhancement. The pancreatic tail mass is again noted and shows heterogeneous appearance with ductal dilatation dis thierry to the mass, mixed signal intensity with possible areas of necrosis. A large node is suspected ca using mass effect on the left renal vein and in close proximity to the splenic vein measuring 3.2 x 2 .7 cm, likely there is central necrosis.. Smaller node present on axial image #70 immediately posteri or and superior to the pancreatic body measures approximately 2.2 cm x 2.8 cm. IMPRESSION: Pancreatic carcinoma metastatic to liver.
--- NOTE | 2019-03-24 06:43 | P.CONS ---
History of Present Illness - Reason for Consult Consult date: 03/24/19 Pancreatic mass Requesting physician: Veronica Schwarz - Chief Complaint Abdominal pain - History of Present Illness 48-year-old male with a medical history significant for hypertension, GERD, prior cholecystectomy in 07/2018 and prior admission for pancreatitis who prese nted to the hospital with complaints of abdominal pain. Patient reports diffuse abdominal pain described as sharp in nature present in the. Umbilical region of his abdomen and diffusely around that area. He denies any associated nausea or vomiting the pain. He has been seen for similar complaints in the past and subsequently underwent a cholecystectomy with no improvement in his symptoms. He denies any fevers, chills, sputum production. He underwent computed tomography scan of the abdomen and pelvis which showed a pancreatic mass in the tail of the pancreas with some mild prominence of the hepatic duct concerning for metastatic pancreatic cancer. He denies any family history of liver or pancreas pathology. He is scheduled to follow up with a flame burner in [place]. Laboratory evaluation on presentations for WBC 6.7, hemoglobin 4, platelet count 3 46,000, AST 23 and ALTs 9. Review of Systems REVIEW OF SYSTEMS: CONSTITUTIONAL: Denies any fevers, chills, or fatigue. CARDIOVASCULAR: Denies any chest pain, palpitations high or low blood pressures RESPIRATORY: Denies any shortness of breath, hemoptysis or cough. GENITOURINARY: No dysuria or hematuria. MUSCULOSKELETAL: No weakness reported. SKIN: Denies any new rashes or lesions, jaundice or pallor. PSYCHIATRIC: Denies any depression or anxiety. NEUROLOGY: Denies headache, denies any new focal deficits. EARS/NOSE/THROAT: No recent hearing change, congestion, nasal discharge or sore throat. EYES: No pain in eyes, discharge or change in vision. GASTROINTESTINAL: As per HPI. Past Medical History Past Medical History: GERD/Reflux, Hypertension Additional Past Medical History / Comment(s): Pancreatitis, chronic low back pain, insomnia. History of Any Multi-Drug Resistant Organisms: None Reported Past Surgical History: Appendectomy, Back Surgery, Cholecystectomy Additional Past Surgical History / Comment(s): Low back surgery/coflex device, pain clinic procedures, colonoscopy Past Anesthesia/Blood Transfusion Reactions: No Reported Reaction Past Psychological History: No Psychological Hx Reported Smoking Status: Never smoker Past Alcohol Use History: Heavy (few beers occasionally recently) Past Drug Use History: Unable to Obtain - Past Family History Father Family Medical History: Cancer (colon) Additional Family Medical History / Comment(s): colon cancer with surgery. Mother Family Medical History: No Reported History Additional Family Medical History / Comment(s): Benign polyps Medications and Allergies Home Medications Medication Instructions Recorded Confirmed Type Gabapentin 600 mg PO TID PRN 03/18/18 03/22/19 History Lisinopril [Zestril] 10 mg PO DAILY 07/11/18 03/22/19 History Hydrocodone/Acetaminophen [[place] 1 tab PO Q6H PRN 03/22/19 03/22/19 History 10-325] Allergies Allergy/AdvReac Type Severity Reaction Status Date / Time No Known Allergies Allergy Verified 03/22/19 14:18 Physical Exam Vitals: Vital Signs Temp Pulse Pulse Resp BP BP Pulse Ox 03/23/19 13:00 98.6 F 64 20 150/93 97 03/23/19 07:10 17 03/23/19 05:00 97.4 F L 66 18 140/100 98 03/22/19 21:15 96.1 F L 66 16 177/112 100 03/22/19 18:00 68 18 167/101 99 Intake and Output 03/23/19 03/23/19 03/23/19 06:59 14:59 22:59 Intake Total 600 925 Balance 600 925 Intake: Intake, IV Titration 600 675 Amount Sodium Chloride 0.9% 1, 600 675 000 ml @ 75 mls/hr IV . [id number] [facility] Rx#:[id number] Oral 250 Other: # Voids 4 Weight 65.589 kg On physical examination, patient appears comfortable in no apparent distress. HEAD: Normocephalic, atraumatic. EYES: No scleral icterus. No conjunctival injection. MOUTH: No lesions, tongue midline. NECK: Trachea midline, no gross abnormalities. CHEST: Clear to auscultation with no wheezing or rhonchi appreciated. HEART: Regular rate and rhythm. ABDOMEN: Soft, mildly tender to palpation. Bowel sounds are positive. No o rganomegaly. No guarding or rigidity. EXTREMITIES: No pedal edema. SKIN: No rashes, no jaundice. NEUROLOGIC: Alert and oriented x3. No focal deficits. Results CBC & Chem 7: 03/22/19 11:24 03/22/19 11:24 CT scan - abdomen: report reviewed (Large pancreatic mass in the tail of the pancreas with foci in the liver concerning for metastatic pancreatic cancer on computed tomography scan of the abdomen.) Assessment and Plan (1) Pancreatic mass Narrative/Plan: 48-year-old male who presents with worsening abdominal pain. Pain is been chronic in nature over the past year or so and patient has undergone evaluations with admission for pancreatitis in the past as well as prior cholecystectomy with no improvement in his pain. The pain is in the periumbilical region of his abdomen and diffusely spread across his abdomen. Computed tomography scan performed in evaluation on current admission significant for a mass in the tail of the pancreas with multiple foci in the liver concerning for metastatic pancreatic cancer. Current Visit: Yes Status: Acute Priority: High Code(s): K86.89 - OTHER SPECIFIED DISEASES OF PANCREAS SNOMED Code(s): 267433043 (2) Abdominal pain Current Visit: Yes Status: Acute Code(s): R10.9 - UNSPECIFIED ABDOMINAL PAIN SNOMED Code(s): 12326119 Plan: Supportive care Okay for diet Appreciate recommendations from oncology service MRI of the liver ordered Plan per oncology service is for CT guided biopsy with interventional radiology if location of the lesions are amenable, otherwise patient will need referral to advanced endoscopist for endoscopic ultrasound with biopsy for tissue confirmation No plan for ERCP or other endoscopic evaluation at this time Defer further management to the oncology service Thank you for allowing us to participate in the care of the patient
[2019-03-24] MEDS: SODIUM CHLORIDE 0.9% 1,000 ML IV SCH ×2 (07:37→17:25)
[2019-03-24] MEDS: HYDROcodone/APAP 10-325MG 1 EACH TAB PO PRN ×3 (07:38→13:48)
[2019-03-24] MEDS: LISINOPRIL 10 MG TAB PO SCH (09:07)
[2019-03-24] MEDS: PANTOPRAZOLE 40 MG TABLET PO SCH (09:07)
--- NOTE | 2019-03-24 12:59 | P.PN ---
Subjective Progress Note Date: 03/24/19 Principal diagnosis: pancreatic mass, liver lesions in follow-up today patient states improvement in his abdominal discomfort, no recent fevers, nausea, vomiting, indigestion or heartburn, abdominal distention, diarrhea or constipation. Objective - Vital Signs Vital signs: Vital Signs Temp 96.3 F L 03/24/19 11:14 Pulse 59 L 03/24/19 11:14 Resp 16 03/24/19 11:14 BP 150/102 03/24/19 11:14 Pulse Ox 98 03/24/19 11:14 Intake & Output 03/23/19 03/24/19 03/24/19 18:59 06:59 18:59 Intake Total 925 120 Balance 925 120 Weight 65.589 kg Intake: Intake, IV Titration 675 Amount Sodium Chloride 0.9% 1, 675 000 ml @ 75 mls/hr IV . [id number] [facility] Rx#:[id number] Oral 250 120 Other: # Voids 2 2 - Constitutional General appearance: Present: average body habitus, cooperative, no acute distress - EENT Eyes: Present: anicteric sclerae, EOMI ENT: Present: hearing grossly normal - Respiratory Respiratory: bilateral: CTA - Cardiovascular Heart sounds: normal: S1, S2 - Gastrointestinal General gastrointestinal: Present: normal bowel sounds, soft, tenderness (less intense) - Neurologic Neurologic: Present: CNII-XII intact - Musculoskeletal Musculoskeletal: Present: strength equal bilaterally - Psychiatric Psychiatric: Present: A&O x's 3, appropriate affect, intact judgment & insight - Labs CBC & Chem 7: 03/22/19 11:24 03/22/19 11:24 - Imaging and Cardiology MRI - abdomen: report reviewed Assessment and Plan (1) Pancreatic mass Narrative/Plan: Dr. Samuel reviewed with the pt the pancreatic tail mass, suspicious/ill defined lesions in the liver as suspicious for malignancy but, need biopsy to confirm. MRI of liver ordered for further evaluation to see if there is suspicious lesion that can be a target for biopsy. If no target for biopsy recommendation [facility]. Pt has problems with transportation, case reviewed with CM to see if able to find him some transport. Reviewed with the pt the tumor markers that were drawn, they were not elevated. Reviewed the use of tumor markers when they are WNL-does not mean that the lesions are not cancerous, need to have biopsy for confirmation. All of pt questions were answered to his satisfaction. Current Visit: Yes Status: Acute Priority: High Code(s): K86.89 - OTHER SPECIFIED DISEASES OF PANCREAS SNOMED Code(s): 850832053 Plan: MRI report reviewed with the patient. The lesions are highly suspect for malignancy. Consult has been placed for Interventional Radiology to take a look at the scans and biopsy a liver lesion if felt amenable and safe to do so. If not, plan is then to send patient to a tertiary care facility for procedure for pancreatic biopsy. All of this was discussed with the patient he did verbalize understanding the plan. Case management is helping patient with transportation challenges.
[2019-03-24 14:32] LABS: Mean Platelet Volume 7.4; Platelet Count 289 k/uL (150-450)
[2019-03-24 14:44] LABS: Prothrombin Time 10.3 sec (9.0-12.0)
[2019-03-24] MEDS: HYDROmorphone 0.5 MG/0.5 ML SYRINGE IVP PRN ×2 (15:49→16:07)
--- NOTE | 2019-03-24 16:14 | P.OP ---
Date of Procedure: 03/24/19 Preoperative Diagnosis: liver masses, pancreatic mass Postoperative Diagnosis: same Procedure(s) Performed: core biopsy right lobe liver mass Anesthesia: local, other (pain control 1mg dilaudid i.v.) Estimated Blood Loss (ml): 10 Pathology: other (yes) Condition: stable Disposition: no change Operative Findings: 2 x 18 core specimen to path in formalin
[2019-03-24] MEDS ORDERED: hydrALAZINE HCL 20 MG/ML 1 ML VIAL IVP PRN (17:05)
[2019-03-24 17:15] LABS: Glucose,Whole Blood 121 mg/dL (75-99)
[2019-03-24] MEDS: HYDROmorphone 1 MG/ML 1 ML SYRINGE IVP PRN (17:16)
--- NOTE | 2019-03-24 17:17 | CT ---
EXAMINATION TYPE: CT abdomen w con DATE OF EXAM: 03/24/2019 COMPARISON: None HISTORY: pain post liver bx CT DLP: 334 mGycm Automated exposure control for dose reduction was used. CONTRAST: Performed with IV Contrast, patient injected with 100 mL of Isovue 300. Multiple axial sections were obtained from the diaphragm to the iliac crests with IV contrast. Lung bases are clear of infiltrate. There is no pleural effusion or pneumothorax. Heart size is allison l. There is no pericardial effusion. There are a few small hypodense foci in the liver that measure u p to 2.5 cm. Spleen is intact. Stomach is intact. There is 6 cm irregular mixed density lobulated mas s in the tail of the pancreas. Gallbladder is not definitely seen. The bile ducts are not dilated. There is no adrenal mass. Kidneys show satisfactory contrast opacification. There is no hydronephrosi s. There is 5 mm cyst upper pole left kidney. There is 5 mm cortical cyst interpolar right kidney. Th ere is no retroperitoneal adenopathy. There is no ascites or free air. There is no sign of a bowel ob struction. The ureters are not dilated. There is no evidence of mesenteric edema. There is no free fl uid around the liver. The bony structures appear intact. IMPRESSION: Large mass in the tail of the pancreas unchanged. No free fluid. No free air. I do not see a complica ting process of the liver biopsy.
--- NOTE | 2019-03-24 17:21 | P.PN ---
Progress Note - Text Progress Note Date: 03/24/19 called to see patient following liver biopsy for pain and diaphoresis patient moving in bed describing pain at incision site, BP stable to slightly increased from baseline of 160/90 at time of biopsy, patient alert and oriented and transferred to CT scan which shows crescentic blood about the lateral margin of liver, paracolic gutter. Discussed with Dr. Schwarz and Dr. William to transfer to EC, patient remains hemodynamically stable. A team saw patient in EC and transferred to ICU. Patient hypertensive 176/[address] Schwarz discussed case with Dr. Sethi and Dr. Schwarz stated he would prescribe I.v. pain medicine and BP control. A team assumed care and escorted patient to ICU.
--- NOTE | 2019-03-24 17:26 | US ---
EXAMINATION TYPE: US biopsy liver DATE OF EXAM: 03/24/2019 HISTORY: Liver and pancreatic masses. FINDINGS: Maximal barrier technique was utilized. Hand hygiene achieved with soap and water. The ski n overlying a suitable path to the patient's mass in the in the right lobe of the liver was localized with ultrasound and the overlying skin prepped and draped. Ultrasound was utilized with sterile alejandro hnique. Lidocaine was used for local anesthesia. A skin kay was made with a scalpel. An 17-gauge needle was advanced under direct ultrasound guidance and core specimen obtained of the mass in the in ferior right lobe, coaxial placement of an 18-gauge needle was performed and core biopsy obtained. 2 passes were made. Specimen submitted in formalin to Pathology. Following the procedure, hemostasis achieved and the patient is discharged in stable condition without complication. IMPRESSION:STATUS POST ULTRASOUND GUIDED CORE BIOPSY OF right lobe liver MASS, PATHOLOGY IS PENDING. THIS PROCEDURE IS PERFORMED BY THE UNDERSIGNED.
[2019-03-24] MEDS: LORazepam 2 MG/ML INJ IV PRN ×2 (17:48→21:20)
[2019-03-24] MEDS: HYDROcodone/APAP 5-325MG 1 EACH TAB PO PRN (17:48)
[2019-03-24] MEDS ORDERED: THIAMINE 100 MG/ML 2 ML VIAL IM STA (18:25)
[2019-03-24] MEDS ORDERED: LORazepam 2 MG/ML INJ IV PRN ×3 (18:25)
[2019-03-24] MEDS ORDERED: HYDROmorphone 1 MG/ML 1 ML SYRINGE IVP PRN ×2 (18:42→18:44)
[2019-03-24] MEDS ORDERED: ACETAMINOPHEN IV (For NPO) 1,000 MG in EMPTY BAG 1 BAG IVPB PRN (18:50)
[2019-03-24] MEDS ORDERED: KETOROLAC 30 MG/ML 1 ML VIAL IVP PRN (18:51)
[2019-03-24] MEDS ORDERED: ACETAMINOPHEN TAB 500 MG TAB PO PRN (18:56)
[2019-03-24 19:25] LABS: Basophils # (A) 0.1 k/uL (0-0.2); Basophils % (A) 1 %; Eosinophils # (A) 0.1 k/uL (0-0.7); Eosinophils % (A) 1 %; HCT 46.9 % (39.0-53.0); HGB 15.7 gm/dL (13.0-17.5); Lymphocytes # (A) 0.5 k/uL (1.0-4.8); Lymphocytes % (A) 3 %; MCH 30.8 pg (25.0-35.0); MCHC 33.5 g/dL (31.0-37.0); MCV 91.9 fL (80.0-100.0); Mean Platelet Volume 7.9; Monocytes # (A) 0.7 k/uL (0-1.0); Monocytes % (A) 5 %; Neutrophils # (A) 12.2 k/uL (1.3-7.7); Neutrophils % (A) 90 %; Platelet Count 351 k/uL (150-450); RDW 13.7 % (11.5-15.5); WBC 13.5 k/uL (3.8-10.6)
[2019-03-24] MEDS: THIAMINE 100 MG TAB PO SCH (20:21)
--- NOTE | 2019-03-24 22:02 | P.PN ---
Subjective Progress Note Date: 03/23/19 Principal diagnosis: Metastatic pancreatic cancer Patient is a 48-year-old male with a known history of hypertension, GERD and history of pancreatitis and chronic low back pain status post surgery and recent cholecystectomy in July 2018 came to ER with the complaints of abdominal pain worsening for the past 7-8 days. Pain is mainly epigastric and left upper quadrant. No other radiation. No aggravating or relieving factors. Patient does have nausea and unable to tolerate any oral diet. Denied any hematemesis or melena. Denied any recent alcohol use. Patient states that he was holding follow-up with GI he states he try to follow up with local GI but they would not see him secondary to not accepting his insurance. He does scheduled appointment with GI in [facility] but this is not until May. No fever no chills. No cough or sputum production. No chest pain or shortness of breath. CT of the abdomen pelvis showed mixed attenuation mass at the tail of pancreas measuring approximately 6 x 7 x 5.5 cm there is surrounding inflammatory change in the mesenteric fat. Some mild prominence of the hepatic duct at the head of the pancreas. Metastatic pancreatic carcinoma. Lipase level 281. all other laboratory data reviewed. 03/23/2019 Patient says that his abdominal pain is better with medications. Tumor markers CA-19-9 and jason fetoprotein is not elevated. Patient was seen by oncology and recommended MRI liver. MRI showed prostatic pancreatic cancer metastases to liver. IR was consulted for ultrasound-guided biopsy.\ Patient has been afebrile. No chest pain or shortness of breath. Continued on IV hydration and liquid diet as tolerated. Current medications reviewed. Objective - Vital Signs Vital signs: Vital Signs Temp 98.6 F 03/23/19 13:00 Pulse 64 03/23/19 13:00 Resp 16 03/23/19 16:00 BP 150/93 03/23/19 13:00 Pulse Ox 97 03/23/19 13:00 Intake & Output 03/22/19 03/23/19 03/23/19 18:59 06:59 18:59 Intake Total 750 925 Balance 750 925 Weight 70.307 kg 65.589 kg Intake: Intake, IV Titration 750 675 Amount Sodium Chloride 0.9% 1, 750 675 000 ml @ 75 mls/hr IV . [id number] [facility] Rx#:[id number] Oral 250 Other: # Voids 2 - Exam PHYSICAL EXAMINATION: Patient is lying in the bed comfortably, no acute distress, awake alert and oriented.. HEENT: Normocephalic. Neck is supple. Pupils reactive. Nostrils clear. Oral cavi ty is moist. Ears reveal no drainage. Neck reveals no JVD, carotid bruits, or thyromegaly. CHEST EXAMINATION: Trachea is central. Symmetrical expansion. Lung bear clear to auscultation and percussion. CARDIAC: Normal S1, S2 with no gallops. No murmurs ABDOMEN: Soft. Epigastric tenderness, Bowel sounds normal. No organomegaly. No abdominal bruits. Extremities: reveal no edema. No clubbing or cyanosis Neurologically awake, alert, oriented x3 with well-coordinated movements. No focal deficits noted Skin: No rash or skin lesions. Psychiatric: Coperative. Nonsuicidal Musculoskeletal: No joint swelling or deformity. Normal range of motion. - Labs CBC & Chem 7: 03/24/19 19:01 03/22/19 11:24 Assessment and Plan Assessment: Abdominal pain Pancreatic cancer with metastases to liver. History of cholecystectomy in June 2018 Chronic low back pain and history of surgery GERD Hypertension DVT prophylaxis. No history of smoking Plan: Patient be continued on pain management with Dilaudid. AFB and CA-19-9 not elevated , GI and oncology is following. MRI of the liver was done.. Symptomatic management for nausea and vomiting. Further recommendations based on the clinical course. Time with Patient: Greater than 30
--- NOTE | 2019-03-24 22:40 | P.PN ---
Subjective Progress Note Date: 03/24/19 Principal diagnosis: Metastatic pancreatic cancer Patient is a 48-year-old male with a known history of hypertension, GERD and history of pancreatitis and chronic low back pain status post surgery and recent cholecystectomy in July 2018 came to ER with the complaints of abdominal pain worsening for the past 7-8 days. Pain is mainly epigastric and left upper quadrant. No other radiation. No aggravating or relieving factors. Patient does have nausea and unable to tolerate any oral diet. Denied any hematemesis or melena. Denied any recent alcohol use. Patient states that he was holding follow-up with GI he states he try to follow up with local GI but they would not see him secondary to not accepting his insurance. He does scheduled appointment with GI in [facility] but this is not until May. No fever no chills. No cough or sputum production. No chest pain or shortness of breath. CT of the abdomen pelvis showed mixed attenuation mass at the tail of pancreas measuring approximately 6 x 7 x 5.5 cm there is surrounding inflammatory change in the mesenteric fat. Some mild prominence of the hepatic duct at the head of the pancreas. Metastatic pancreatic carcinoma. Lipase level 281. all other laboratory data reviewed. 03/23/2019 Patient says that his abdominal pain is better with medications. Tumor markers CA-19-9 and jason fetoprotein is not elevated. Patient was seen by oncology and recommended MRI liver. MRI showed prostatic pancreatic cancer metastases to liver. IR was consulted for ultrasound-guided biopsy.\ Patient has been afebrile. No chest pain or shortness of breath. Continued on IV hydration and liquid diet as tolerated. 03/24/2019 Patient underwent ultrasound-guided liver biopsy today. Postprocedure patient was diaphoretic and having increased pain. He was also tachycardic and tachypneic with elevated blood pressure. Repeat CT of the abdominal was done showing crescentic blood at the lateral margin of the liver and paracolic gutter. Repeat labs are reviewed showing stable hemoglobin level and WBC count increased to 13.5. Patient will be monitored in the MICU overnight. Discussed with the critical care team. Oncology is on board. Follow-up liver biopsy report. Current medications reviewed. Objective - Vital Signs Vital signs: Vital Signs Temp 98.0 F 03/24/19 17:23 Pulse 77 03/24/19 20:00 Resp 17 03/24/19 20:00 BP 181/116 03/24/19 20:00 Pulse Ox 93 L 03/24/19 20:00 Intake & Output 03/24/19 03/24/19 03/25/19 06:59 18:59 06:59 Intake Total 120 1550 225 Output Total 600 525 Balance 120 950 -300 Intake: IV 75 225 Sodium Chloride 0.9% 1, 75 225 000 ml @ 75 mls/hr IV . [id number] ONUR Rx#:[id number] Intake, IV Titration 525 Amount Sodium Chloride 0.9% 1, 525 000 ml @ 75 mls/hr IV . [id number] ONUR Rx#:[id number] Oral 120 950 Output: Urine 600 525 Other: # Voids 2 2 - Exam PHYSICAL EXAMINATION: Patient is lying in the bed comfortably, no acute distress, awake alert and oriented.. HEENT: Normocephalic. Neck is supple. Pupils reactive. Nostrils clear. Oral cavity is moist. Ears reveal no drainage. Neck reveals no JVD, carotid bruits, or thyromegaly. CHEST EXAMINATION: Trachea is central. Symmetrical expansion. Lung bear clear to auscultation and percussion. CARDIAC: Normal S1, S2 with no gallops. No murmurs ABDOMEN: Soft. Epigastric tenderness, Bowel sounds normal. No organomegaly. No abdominal bruits. Extremities: reveal no edema. No clubbing or cyanosis Neurologically awake, alert, oriented x3 with well-coordinated movements. No focal deficits noted Skin: No rash or skin lesions. Psychiatric: Coperative. Nonsuicidal Musculoskeletal: No joint swelling or deformity. Normal range of motion. - Labs CBC & Chem 7: 03/24/19 19:01 03/22/19 11:24 Labs: Abnormal Lab Results - Last 24 Hours (Table) 03/24/19 03/24/19 Range/Units 17:13 19:01 WBC 13.5 H (3.8-10.6) k/uL Neutrophils # 12.2 H (1.3-7.7) k/uL Lymphocytes # 0.5 L (1.0-4.8) k/uL POC Glucose (mg/dL) 121 H (75-99) mg/dL Assessment and Plan Assessment: Abdominal pain due to metastatic cancer. Pancreatic cancer with metastases to liver. Status post ultrasound-guided liver biopsy. Elevating pathology report. History of cholecystectomy in June 2018 Chronic low back pain and history of surgery GERD Hypertension DVT prophylaxis. No history of smoking Plan: Patient be continued on pain management with Dilaudid. AFB and CA-19-9 not elevated , GI and oncology is following. MRI of the liver was done showing liver metastasis with pancreatic cancer. Ultrasound-guided liver biopsy was done today. Symptomatic management for nausea and vomiting. Further recommendations based on the clinical course. Time with Patient: Greater than 30
[2019-03-25] MEDS: HYDROcodone/APAP 5-325MG 1 EACH TAB PO PRN ×4 (02:20→19:46)
[2019-03-25 05:10] LABS: Basophils # (A) 0.1 k/uL (0-0.2); Basophils % (A) 1 %; Eosinophils # (A) 0.1 k/uL (0-0.7); Eosinophils % (A) 1 %; HCT 42.8 % (39.0-53.0); HGB 14.1 gm/dL (13.0-17.5); Lymphocytes # (A) 1.1 k/uL (1.0-4.8); Lymphocytes % (A) 12 %; MCH 30.4 pg (25.0-35.0); MCHC 33.1 g/dL (31.0-37.0); MCV 92.1 fL (80.0-100.0); Mean Platelet Volume 7.6; Monocytes # (A) 0.6 k/uL (0-1.0); Monocytes % (A) 6 %; Neutrophils # (A) 7.5 k/uL (1.3-7.7); Neutrophils % (A) 79 %; Platelet Count 273 k/uL (150-450); RBC 4.65 m/uL (4.30-5.90); RDW 13.8 % (11.5-15.5); WBC 9.4 k/uL (3.8-10.6)
[2019-03-25 05:20] LABS: African American GFR (CKD) >90 (>60 ml/min/1.73 sqM); Anion Gap 5 mmol/L; Blood Urea Nitrogen 5 mg/dL (9-20); Calcium 8.9 mg/dL (8.4-10.2); Carbon Dioxide 28 mmol/L (22-30); Chloride 100 mmol/L (98-107); Glucose 89 mg/dL (74-99); Non-African American GFR(CKD) >90 (>60 ml/min/1.73 sqM); Potassium 3.6 mmol/L (3.5-5.1); Sodium 133 mmol/L (137-145)
[2019-03-25] MEDS ORDERED: POTASSIUM CHLORIDE ER 20 MEQ TAB.ER PO STA (05:37)
[2019-03-25] MEDS: SODIUM CHLORIDE 0.9% 1,000 ML IV SCH (05:55)
[2019-03-25] MEDS: THIAMINE 100 MG TAB PO SCH ×2 (06:57→17:29)
[2019-03-25] MEDS: LISINOPRIL 10 MG TAB PO SCH (08:09)
[2019-03-25] MEDS: PANTOPRAZOLE 40 MG TABLET PO SCH (08:09)
--- NOTE | 2019-03-25 12:30 | CONS ---
CONSULTATION PULMONARY/CRITICAL CARE CONSULTATION: DATE OF SERVICE: 03/25/2019 This is a patient who presented to the emergency room with abdominal pain. He has been having abdominal pain for several weeks prior to admission. The patient apparently was to follow up with GI, but has not been able to do so because of insurance issues. Anyway, the patient was admitted and had scanning done of his abdomen. This scan showed a pancreatic tail mass and possible liver METS and he was thought to have metastatic pancreatic carcinoma, which is hard to believe given the fact that he is 48. Anyway, he had attempted a biopsy yesterday by Dr. Douglass. Subsequent to that, the patient had pain and the patient was thought to possibly have some bleeding and therefore the patient was admitted to the ICU for observation. Currently, he is very stable. Initially, he had a very high blood pressure and had issues with pain control. He is postop day #1 status post fine-needle aspiration of a liver lesion. Currently, he is not receiving any supplemental oxygen. His saline IV is running at 75 mL an hour. He does have a history of hypertension, pancreatitis, possible pancreatic cancer, low back pain, alcohol abuse, appendectomy, and cholecystectomy. He apparently drinks a fifth of Fireball every day. HOME MEDICATIONS: Reviewed. He is on gabapentin, Cymbalta, lisinopril, [place], and Zofran. ALLERGIES: Denied. PAST MEDICAL HISTORY: Positive for gastroesophageal reflux disease, hypertension, chronic back pain, pancreatitis, and possible gallbladder disease. SURGICAL HISTORY: Includes appendectomy, as well as back surgery and cholecystectomy. SOCIAL HISTORY: Negative tobacco. Alcohol abuse is noted to be significant. He denies any illicit drug use. FAMILY HISTORY: Positive for father with colon cancer and mother with colonic polyp. REVIEW OF SYSTEMS: CONSTITUTIONAL: Negative. NEUROLOGIC: Negative. HEENT: Negative. CARDIOVASCULAR: Negative. PULMONARY: Negative. GI: Abdominal pain. : Negative. RHEUMATOLOGIC: Negative. IMMUNOLOGIC: Negative. ENDOCRINOLOGIC: Negative. DERMATOLOGIC: Negative. Current vital signs are reviewed, temperature 98.1, heart rate 61, respiratory rate 13, blood pressure 129/90 mean 103, room air saturation 95%-96%. GENERAL: Appears in no acute distress. HEENT: Examination is grossly unremarkable. Mucous membranes are moist. No oral lesions. NECK: Supple, full range of motion. No adenopathy or thyromegaly. Neck veins are flat. CARDIOVASCULAR: Examination reveals regular rhythm and rate. Heart rate 61. S1, S2 normal. No S3, S4, or murmur. LUNGS: Reveal mostly clear breath sounds. A few scattered rhonchi noted. No wheezes or crackles. ABDOMEN: Reveals some diffuse abdominal tenderness. He has tenderness more so around the biopsy site, which is in the right lateral abdominal area. Bowel sounds are noted. EXTREMITIES: Intact. No cyanosis, clubbing, or edema. SKIN: Without rash. NEUROLOGIC: Examination is brief, but nonfocal. LABS: Reviewed. White count 9.4, hemoglobin 14.1, hematocrit 42.8, platelet count 273,000. Sodium 133, potassium 3.6, chloride is 100, CO2 is 28, anion gap is 5. BUN and creatinine were 5 and 0.69. Calcium 8.9. Urine is negative. The patient had an abdominal CT scan after the procedure, and I did speak to Dr. Douglass about it. It showed a large mass in the tail of pancreas which is unchanged. There is no free fluid or free air. There is no complicating process following liver biopsy. Liver biopsy ultrasound was also reviewed. That was done by Dr. Douglass. MEDICATIONS: Reviewed. They seem to be appropriate. He is essentially on Tylenol, gabapentin, Apresoline, [place], Dilaudid, Toradol, Zestril, Ativan per CIWA, Narcan, Zofran, Protonix, K-Dur, saline IV, and thiamine. ASSESSMENT: 1. Status post severe pain, hypertension and nausea, following a fine-needle aspiration of a liver lesion. 2. Potential diagnosis of metastatic pancreatic carcinoma based on CT scan of abdomen. 3. History of gastroesophageal reflux disease.. 4. History of hypertension. 5. History of chronic back pain. 6. History of pancreatitis. 7. Status post cholecystectomy. 8. Status post appendectomy. 9. History of have heavy alcohol abuse, drinking one=fifth of Fireball a day. PLAN: The patient is doing well. Will continue to monitor him here. He appears not to be having significant pain, although on palpation, he does have pain. His hemoglobin seems to be stable. His respiratory status is stable. No additional recommendations are made at this time. Will continue to follow. Prognosis is guarded. MMODL / IJN: [id number] /
[2019-03-25] MEDS: LORazepam 2 MG/ML INJ IV PRN (16:20)
[2019-03-25] MEDS: amLODIPine 5 MG TAB PO SCH (20:13)
[2019-03-26] MEDS: HYDROcodone/APAP 5-325MG 1 EACH TAB PO PRN ×4 (03:41→17:28)
[2019-03-26] MEDS: LISINOPRIL 10 MG TAB PO SCH (07:50)
[2019-03-26] MEDS: PANTOPRAZOLE 40 MG TABLET PO SCH (07:50)
[2019-03-26] MEDS: amLODIPine 5 MG TAB PO SCH (07:50)
[2019-03-26] MEDS: THIAMINE 100 MG TAB PO SCH ×2 (07:50→17:21)
[2019-03-26] MEDS: LORazepam 2 MG/ML INJ IV PRN (15:17)
--- NOTE | 2019-03-26 23:37 | P.PN ---
Subjective Progress Note Date: 03/25/19 Principal diagnosis: Metastatic pancreatic cancer Patient is a 48-year-old male with a known history of hypertension, GERD and history of pancreatitis and chronic low back pain status post surgery and recent cholecystectomy in July 2018 came to ER with the complaints of abdominal pain worsening for the past 7-8 days. Pain is mainly epigastric and left upper quadrant. No other radiation. No aggravating or relieving factors. Patient does have nausea and unable to tolerate any oral diet. Denied any hematemesis or melena. Denied any recent alcohol use. Patient states that he was holding follow-up with GI he states he try to follow up with local GI but they would not see him secondary to not accepting his insurance. He does scheduled appointment with GI in [facility] but this is not until May. No fever no chills. No cough or sputum production. No chest pain or shortness of breath. CT of the abdomen pelvis showed mixed attenuation mass at the tail of pancreas measuring approximately 6 x 7 x 5.5 cm there is surrounding inflammatory change in the mesenteric fat. Some mild prominence of the hepatic duct at the head of the pancreas. Metastatic pancreatic carcinoma. Lipase level 281. all other laboratory data reviewed. 03/23/2019 Patient says that his abdominal pain is better with medications. Tumor markers CA-19-9 and jason fetoprotein is not elevated. Patient was seen by oncology and recommended MRI liver. MRI showed prostatic pancreatic cancer metastases to liver. IR was consulted for ultrasound-guided biopsy.\ Patient has been afebrile. No chest pain or shortness of breath. Continued on IV hydration and liquid diet as tolerated. 03/24/2019 Patient underwent ultrasound-guided liver biopsy today. Postprocedure patient was diaphoretic and having increased pain. He was also tachycardic and tachypneic with elevated blood pressure. Repeat CT of the abdominal was done showing crescentic blood at the lateral margin of the liver and paracolic gutter. Repeat labs are reviewed showing stable hemoglobin level and WBC count increased to 13.5. Patient will be monitored in the MICU overnight. Discussed with the critical care team. Oncology is on board. Follow-up liver biopsy report. 03/25/2019 Patient is currently in the MICU. Overnight patient did improve clinically. Abdominal pain is improved as well. Hemodynamically stable. Hemoglobin is stable. Currently being continued on pain management with Dilaudid. Awaiting liver biopsy report. Patient is being transferred to medical floor today. Current medications reviewed. Objective - Vital Signs Vital signs: Vital Signs Temp 97.9 F 03/25/19 19:48 Pulse 66 03/25/19 19:48 Resp 17 03/25/19 19:48 BP 173/99 03/25/19 19:48 Pulse Ox 100 03/25/19 19:48 Intake & Output 03/25/19 03/25/19 03/26/19 06:59 18:59 06:59 Intake Total 900 1740 600 Output Total 1050 1075 Balance -150 665 600 Weight 67.5 kg Intake: IV 900 300 Sodium Chloride 0.9% 1, 900 300 000 ml @ 75 mls/hr IV . [id number] ONUR Rx#:[id number] Oral 1440 600 Output: Urine 1050 1075 Other: Voiding Method Urinal Urinal # Voids 2 # Bowel Movements 2 - Exam PHYSICAL EXAMINATION: Patient is lying in the bed comfortably, no acute distress, awake alert and oriented.. HEENT: Normocephalic. Neck is supple. Pupils reactive. Nostrils clear. Oral cavity is moist. Ears reveal no drainage. Neck reveals no JVD, carotid bruits, or thyromegaly. CHEST EXAMINATION: Trachea is central. Symmetrical expansion. Lung bear clear to auscultation and percussion. CARDIAC: Normal S1, S2 with no gallops. No murmurs ABDOMEN: Soft. Mild Epigastric tenderness, Bowel sounds normal. No organom egaly. No abdominal bruits. Extremities: reveal no edema. No clubbing or cyanosis Neurologically awake, alert, oriented x3 with well-coordinated movements. No focal deficits noted Skin: No rash or skin lesions. Psychiatric: Coperative. Nonsuicidal Musculoskeletal: No joint swelling or deformity. Normal range of motion. - Labs CBC & Chem 7: 03/25/19 04:37 03/25/19 04:37 Labs: Abnormal Lab Results - Last 24 Hours (Table) 03/25/19 Range/Units 04:37 Sodium 133 L (137-145) mmol/L BUN 5 L (9-20) mg/dL Assessment and Plan Assessment: Abdominal pain due to metastatic cancer. Pancreatic cancer with metastases to liver. Status post ultrasound-guided liver biopsy. Awaiting pathology report. History of cholecystectomy in June 2018 Chronic low back pain and history of surgery GERD Hypertension DVT prophylaxis. No history of smoking Plan: Patient be continued on pain management with Dilaudid. AFB and CA-19-9 not elevated , GI and oncology is following. MRI of the liver was done showing liver metastasis with pancreatic cancer. Ultrasound-guided liver biopsy was done on 03/24/19. Symptomatic management for nausea and vomiting. Further recommendations based on the clinical course. Time with Patient: Greater than 30
--- NOTE | 2019-03-26 23:38 | P.PN ---
Subjective Progress Note Date: 03/26/19 Principal diagnosis: Metastatic pancreatic cancer Patient is a 48-year-old male with a known history of hypertension, GERD and history of pancreatitis and chronic low back pain status post surgery and recent cholecystectomy in July 2018 came to ER with the complaints of abdominal pain worsening for the past 7-8 days. Pain is mainly epigastric and left upper quadrant. No other radiation. No aggravating or relieving factors. Patient does have nausea and unable to tolerate any oral diet. Denied any hematemesis or melena. Denied any recent alcohol use. Patient states that he was holding follow-up with GI he states he try to follow up with local GI but they would not see him secondary to not accepting his insurance. He does scheduled appointment with GI in [facility] but this is not until May. No fever no chills. No cough or sputum production. No chest pain or shortness of breath. CT of the abdomen pelvis showed mixed attenuation mass at the tail of pancreas measuring approximately 6 x 7 x 5.5 cm there is surrounding inflammatory change in the mesenteric fat. Some mild prominence of the hepatic duct at the head of the pancreas. Metastatic pancreatic carcinoma. Lipase level 281. all other laboratory data reviewed. 03/23/2019 Patient says that his abdominal pain is better with medications. Tumor markers CA-19-9 and jason fetoprotein is not elevated. Patient was seen by oncology and recommended MRI liver. MRI showed prostatic pancreatic cancer metastases to liver. IR was consulted for ultrasound-guided biopsy.\ Patient has been afebrile. No chest pain or shortness of breath. Continued on IV hydration and liquid diet as tolerated. 03/24/2019 Patient underwent ultrasound-guided liver biopsy today. Postprocedure patient was diaphoretic and having increased pain. He was also tachycardic and tachypneic with elevated blood pressure. Repeat CT of the abdominal was done showing crescentic blood at the lateral margin of the liver and paracolic gutter. Repeat labs are reviewed showing stable hemoglobin level and WBC count increased to 13.5. Patient will be monitored in the MICU overnight. Discussed with the critical care team. Oncology is on board. Follow-up liver biopsy report. 03/25/2019 Patient is currently in the MICU. Overnight patient did improve clinically. Abdominal pain is improved as well. Hemodynamically stable. Hemoglobin is stable. Currently being continued on pain management with Dilaudid. Awaiting liver biopsy report. Patient is being transferred to medical floor today. 03/26/2019 Patient is currently sitting in the chair comfortably. Pain is controlled with IV pain medications. Patient is tolerating oral diet and currently awaiting for biopsy report. Anticipate discharge in next 24 hours with improvement in pain and outpatient oncology appointment. Patient had been afebrile. No nausea or vomiting. No chest pain or shortness of breath. Current medications reviewed. Objective - Vital Signs Vital signs: Vital Signs Temp 97.2 F L 03/26/19 11:35 Pulse 55 L 03/26/19 15:32 Resp 16 03/26/19 15:32 BP 126/86 03/26/19 15:28 Pulse Ox 96 03/26/19 11:35 Intake & Output 03/25/19 03/26/19 03/26/19 18:59 06:59 18:59 Intake Total 1740 1200 480 Output Total 1075 2100 Balance 665 1200 -1620 Intake: IV 300 Sodium Chloride 0.9% 1, 300 000 ml @ 75 mls/hr IV . [id number] ONUR Rx#:[id number] Oral 1440 1200 480 Output: Urine 1075 2100 Other: Voiding Method Urinal Toilet Toilet Urinal Urinal # Voids 2 2 # Bowel Movements 2 - Exam PHYSICAL EXAMINATION: Patient is lying in the bed comfortably, no acute distress, awake alert and oriented.. HEENT: Normocephalic. Neck is supple. Pupils reactive. Nostrils clear. Oral cavity is moist. Ears reveal no drainage. Neck reveals no JVD, carotid bruits, or thyromegaly. CHEST EXAMINATION: Trachea is central. Symmetrical expansion. Lung bear clear to auscultation and percussion. CARDIAC: Normal S1, S2 with no gallops. No murmurs ABDOMEN: Soft. Mild Epigastric tenderness, Bowel sounds normal. No organomegaly. No abdominal bruits. Extremities: reveal no edema. No clubbing or cyanosis Neurologically awake, alert, oriented x3 with well-coordinated movements. No focal deficits noted Skin: No rash or skin lesions. Psychiatric: Coperative. Nonsuicidal Musculoskeletal: No joint swelling or deformity. Normal range of motion. - Labs CBC & Chem 7: 03/25/19 04:37 03/25/19 04:37 Assessment and Plan Assessment: Abdominal pain due to metastatic cancer. Pancreatic cancer with metastases to liver. Status post ultrasound-guided liver biopsy. Awaiting pathology report. History of cholecystectomy in June 2018 Chronic low back pain and history of surgery GERD Hypertension DVT prophylaxis. No history of smoking Plan: Patient be continued on pain management with Dilaudid. AFB and CA-19-9 not elevated , GI and oncology is following. MRI of the liver was done showing liver metastasis with pancreatic cancer. Ultrasound-guided liver biopsy was done on 03/24/19. Symptomatic management for nausea and vomiting. Further recommendations based on the clinical course.
[2019-03-27] MEDS: LISINOPRIL 10 MG TAB PO SCH (07:31)
[2019-03-27] MEDS: HYDROcodone/APAP 5-325MG 1 EACH TAB PO PRN ×2 (07:32→12:33)
[2019-03-27] MEDS: PANTOPRAZOLE 40 MG TABLET PO SCH (07:32)
[2019-03-27] MEDS: THIAMINE 100 MG TAB PO SCH (07:32)
[2019-03-27] MEDS: amLODIPine 5 MG TAB PO SCH (07:32)
[2019-03-27 07:50] LABS: Basophils # (A) 0.1 k/uL (0-0.2); Basophils % (A) 1 %; Eosinophils # (A) 0.1 k/uL (0-0.7); Eosinophils % (A) 2 %; HCT 49.6 % (39.0-53.0); HGB 16.1 gm/dL (13.0-17.5); Lymphocytes # (A) 1.6 k/uL (1.0-4.8); Lymphocytes % (A) 22 %; MCH 30.5 pg (25.0-35.0); MCHC 32.4 g/dL (31.0-37.0); Mean Platelet Volume 7.7; Monocytes # (A) 0.5 k/uL (0-1.0); Monocytes % (A) 7 %; Neutrophils # (A) 4.7 k/uL (1.3-7.7); Neutrophils % (A) 66 %; Platelet Count 296 k/uL (150-450); RBC 5.28 m/uL (4.30-5.90); RDW 13.9 % (11.5-15.5); WBC 7.1 k/uL (3.8-10.6)
[2019-03-27 08:07] LABS: African American GFR (CKD) >90 (>60 ml/min/1.73 sqM); Anion Gap 6 mmol/L; Blood Urea Nitrogen 11 mg/dL (9-20); Calcium 9.6 mg/dL (8.4-10.2); Carbon Dioxide 30 mmol/L (22-30); Chloride 101 mmol/L (98-107); Glucose 97 mg/dL (74-99); Magnesium 2.1 mg/dL (1.6-2.3); Non-African American GFR(CKD) >90 (>60 ml/min/1.73 sqM); Potassium 4.5 mmol/L (3.5-5.1); Sodium 137 mmol/L (137-145)
[2019-03-27 11:44] VITALS: BP 116/74; PULSE 60; RESP 17; TEMP 98.4
--- NOTE | 2019-03-27 12:32 | P.PN ---
Subjective Progress Note Date: 03/27/19 Principal diagnosis: pancreatic mass, liver lesions In follow-up today patient's abdominal discomfort is resolved, his biopsy site is not causing him any unusual discomfort, tolerating moderate amounts of oral intake, no nausea, vomiting, fevers, he is anxious to go home. Objective - Vital Signs Vital signs: Vital Signs Temp 98.4 F 03/27/19 11:43 Pulse 60 03/27/19 11:43 Resp 17 03/27/19 11:43 BP 116/74 03/27/19 11:43 Pulse Ox 98 03/27/19 11:43 Intake & Output 03/26/19 03/27/19 03/27/19 18:59 06:59 18:59 Intake Total 480 290 Output Total 2100 Balance -1620 290 Intake: Oral 480 290 Output: Urine 2100 Other: Voiding Method Toilet Toilet Urinal Urinal # Voids 2 2 - Constitutional General appearance: Present: average body habitus, cooperative, no acute distress - EENT Eyes: Present: anicteric sclerae, EOMI ENT: Present: hearing grossly normal - Respiratory Details: Respirations even and unlabored - Cardiovascular Details: Skin warm and dry - Gastrointestinal General gastrointestinal: Present: soft, tenderness (Mild) - Neurologic Neurologic: Present: CNII-XII intact - Psychiatric Psychiatric: Present: A&O x's 3, appropriate affect, intact judgment & insight - Labs CBC & Chem 7: 03/27/19 06:28 03/27/19 06:28 Assessment and Plan (1) Pancreatic mass Narrative/Plan: Pt is status post a liver biopsy. Will contact pathology in the a.m. to assure that they have an adequate specimen for evaluation. If specimen adequate that diagnosis can be obtained, office will plan and contact patient for an appointment either later this week or very early next week. If not, patient will be referred to tertiary care facility [facility] for procedure to biopsy the pancreas. I did confirm patient's contact information. Patient does need several days in advance notification of appointments due to having to call for right assistance that CM was able to connect him with. Tumor markers, were not elevated. Patient verbalized understanding the plan, our contact information was also provided to him Current Visit: Yes Status: Acute Priority: High Code(s): K86.89 - OTHER SPECIFIED DISEASES OF PANCREAS SNOMED Code(s): 589567436
--- NOTE | 2019-03-27 15:42 | P.DS ---
Providers Date of admission: 03/22/19 12:42 Attending physician: Lucia Spicer Consults: 03/22/19 13:02 Consult Physician Urgent Consulting Provider: Elier Schaeffer Consult Reason/Comments: Pancreatic cancer Do you want consulting provider notified?: Yes 03/24/19 18:27 Consult Physician Stat Consulting Provider: Merritt Sethi Consult Reason/Comments: ICU care Do you want consulting provider notified?: Already Contacted Primary care physician: Yonatan Sellers [facility] Course: Diagnoses: Abdominal pain due to metastatic cancer. Highly suspected Pancreatic cancer with metastases to liver. Status post ultrasound-guided liver biopsy. Awaiting pathology report. Alcohol use disorder History of cholecystectomy in June 2018 Chronic low back pain and history of surgery GERD Hypertension DVT prophylaxis. No history of smoking Hospital course: Patient is a 48-year-old male with a known history of hypertension, GERD and history of pancreatitis and chronic low back pain status post surgery and recent cholecystectomy in July 2018 came to ER with the complaints of upper abdominal pain worsening for the past 7-8 days. Patient was unable to tolerate any oral diet. CT of the abdomen pelvis showed mixed attenuation mass at the tail of pancreas measuring approximately 6 x 7 x 5.5 cm there is surrounding inflammatory change in the mesenteric fat. Some mild prominence of the hepatic duct at the head of the pancreas. tumor markers CA-19-9 and jason fetoprotein is not elevated. Patient was seen by oncology and recommended MRI liver. MRI showed possible pancreatic cancer with metastases to liver. IR was consulted for ultrasound-guided Liver biopsy on 03/24/2019, pathology results still pending, patient is aware of all of the above information and he is willing to follow up with oncologist upon discharge, he was to follow up with Dr. Samuel. Discharge patient denies chest pain, no dyspnea, he is fully awake and oriented, he has some mild right upper quadrant pain, better controlled, patient is not in distress and is able to walk, he is tolerating diet, no nausea vomiting, he had a regular bowel movement 2 yesterday, no urinary problem. On exam his abdomen looks soft with some RUQ tenderness. No fever. Vital signs stable. Patient was cleared for discharge by all consultants including oncology and pulmonary services Problems and management plan were discussed with the patient and he verbalized understanding and acceptance Patient was found stable and can be discharged home however he needs follow-up as an outpatient. Patient was instructed to follow up with PCP Dr. Fletcher within one week and patient agrees. Also patient was instructed to follow up with Dr. Samuel in one week and he agrees as well. Patient agrees with the appointments with Dr. Fletcher and its times a said he will follow-up. I spoke with Dr. Fletcher and discussed the case with him including the need for follow-up of the liver biopsy and possible pancreatic mass with liver metastasis and he kindly took note of this Gen: patient is a AAOx3, no distress CVS: S1-S2, RRR, no murmur Lungs: B/L CTA, no wheezing -Abdomen: soft, no distention,mild RUQ tenderness with no guarding or rebound tenderness, positive bowel sounds Extremity: no leg edema or induration Time spent more than 35 minutes Patient Condition at Discharge: Serious Plan - Discharge Summary Discharge Rx Participant: No New Discharge Prescriptions: New amLODIPine [Norvasc] 5 mg PO DAILY #30 tab HYDROcodone/APAP 5-325MG [[place] 5-325] 1 each PO Q6HR PRN 2 Days #8 tab PRN Reason: Moderate Pain Continue Gabapentin 600 mg PO TID PRN PRN Reason: Pain Lisinopril [Zestril] 10 mg PO DAILY Hydrocodone/Acetaminophen [[place] 10-325] 1 tab PO Q6H PRN PRN Reason: Pain Discharge Medication List Gabapentin 600 mg PO TID PRN 03/18/18 [History] Lisinopril [Zestril] 10 mg PO DAILY 07/11/18 [History] Hydrocodone/Acetaminophen [[place] 10-325] 1 tab PO Q6H PRN 03/22/19 [History] HYDROcodone/APAP 5-325MG [[place] 5-325] 1 each PO Q6HR PRN 2 Days #8 tab 03/27/19 [Rx] amLODIPine [Norvasc] 5 mg PO DAILY #30 tab 03/27/19 [Rx] Follow up Appointment(s)/Referral(s): Mervin Samuel MD [STAFF PHYSICIAN] - 1 Week (Radha Dewey NP states that office will call patient with appointment date and time ) Yonatan Fletcher III, MD [Primary Care Provider] - 03/31/19 1:00 pm Patient Instructions/Handouts: Hydrocodone/Acetaminophen (By mouth), Amlodipine (By mouth), Percutaneous Liver Biopsy (DC) Discharge Disposition: HOME SELF-CARE
--- NOTE | 2019-04-06 11:31 | CDI ---
Documentation Clarification Form Date: 04/06/19 From: Tete Dow Phone: If you have a question about this query, please contact Keshia Gonzalez, Medical Supervisor at [phone] between 8am and 5pm. Admit Date: 03/22/19 Discharge Date:03/27/19 Patient Name: Paul Romero Visit Number: [id number] ATTENTION: The Clinical Documentation Specialists (CDI) and [facility] Coding Staff appreciate your assistance in clarifying documentation. Please respond to the clarification below the line at the bottom and electronically sign. The CDI & [facility] Coding staff will review the response and follow-up if needed. Please note: Queries are made part of the Legal Health Record. If you have any questions, please contact the author of this message via ITS. Dear Dr. Schwarz The final diagnosis of the pathology report states: Benign livery parenchyma with mild steatosis, non-diagnostic of a mass, lesion or malignancy. Documentation states: CT scan showed a pancreatic tail mass and possible liver mets, highly suspected pancreatic cancer with metastases to the liver. Patient history/risk factors: History of pancreatitis Clinical Indicators: Abdominal pain Treatment: IV Dilaudid and IV Toradol for abdominal pain In your professional opinion, can you clarify the above fingings? Pancreatic cancer with liver metastasis Pancreatic mass Liver Mass Other (please specify) Unable to determine Pancreatic mass MTDD
== END 2019-03-27 15:12 | disposition home or self-care (01) | DRG 440 ==
LOC: EC 10:34 → 5NMEDONC 12:42 → 2SICU 03-24 17:08 → 5NMEDONC 03-25 14:31
PROVIDERS: ADMIT Hospitalist; ATTEND Hospitalist
PROC: 0FB13ZX Excision of Right Lobe Liver, Percutaneous Approach, Diagnostic (ICD-10-PCS; principal; 2019-03-24)
DX: K86.9 Disease of pancreas, unspecified (principal); F10.10 Alcohol abuse, uncomplicated; I10 Essential (primary) hypertension; K76.9 Liver disease, unspecified; R10.9 Unspecified abdominal pain; G47.00 Insomnia, unspecified; K21.9 Gastro-esophageal reflux disease without esophagitis; M54.5 Low back pain; R00.0 Tachycardia, unspecified; G89.29 Other chronic pain; Z79.899 Other long term (current) drug therapy; Z90.49 Acquired absence of other specified parts of digestive tract; Z83.71 Family history of colonic polyps; Z80.0 Family history of malignant neoplasm of digestive organs
CPT/HCPCS: 36415; 47000; 74160; 74177; 74183; 76942; 80048; 80053; 81003; 82105; 82150; 83605; 83690; 83735; 85025; 85049; 85610; 86301; 88307; 88313; 96361; 96374; 96375; 96376; 99285

== ENCOUNTER → 2019-05-05 | Outpatient (CLI) | payer OTHER ==
--- NOTE | 2019-05-08 07:31 | PE ---
EXAMINATION TYPE: PET CT fusion skull to thigh DATE OF EXAM: 05/05/2019 COMPARISON: CT abdomen pelvis dated 03/22/2019 and MRI liver dated 03/23/2019. HISTORY: Pancreatic cancer and initial examination TECHNIQUE: Following the intravenous administration of 11.8 mCi of F-18 FDG, whole body images are p erformed from the skull base to the midthigh. Images are reviewed on the computer in the coronal, ax ial, and sagittal planes. Reconstructed rotating images are created on independent workstation and r eviewed on the computer. A localization and attenuation correction CT is performed in conjunction w ith the PET scan. SCAN: Initial treatment strategy FINDINGS: Mediastinal background: 1.46 Abdominal background: 1.94 SKULL BASE AND NECK: No suspicious hypermetabolic activity. CHEST, MEDIASTINUM, AND HILAR REGION: No suspicious hypermetabolic activity. ABDOMEN AND PELVIS: The primary mass of the pancreatic tail measures approximately 4.8 x 3.7 cm and d emonstrates a maximum SUV of 4.23. The adjacent marked centrally necrotic adenopathy together measures 9.6 x 4.7 cm on axial image 165 w ith a maximum SUV of 4.23. Evaluation of the splenic artery and vein for thrombus is nondiagnostic wi thout contrast. In the gastrohepatic ligament adenopathy measures 3.9 x 3.0 cm and has a maximum SUV of 4.52. There is a small focus of abnormal uptake near the splenic hilum that may relate to a small lymph nod e with a maximum SUV of 3.34. The subcentimeter hepatic lesions seen on the exam of 03/22/2019 remain suspicious despite lack of hyp ermetabolic activity. OSSEOUS STRUCTURES: No suspicious hypermetabolic activity. OTHER CT: Moderate mucosal thickening is seen in the left maxillary sinus. Surgical changes of the selene mbar spine. Circumferential mucosal thickening of the urinary bladder likely relates to incomplete di stention. The unenhanced liver does not well demonstrate the previously seen subtle hypoattenuated he patic lesions and these are better demonstrated on the prior MRI liver and CT abdomen with contrast g iven their small size. Main pancreatic ductal dilatation is seen. No hydronephrosis or nephrolithiasi s. Scattered groundglass opacities in the lungs likely relate to multifocal subsegmental atelectasis. IMPRESSION: 1. Pancreatic tail mass compatible with neoplasm with surrounding extensive and necrotic peripancreat ic adenopathy and adenopathy in the gastrohepatic ligament. 2. Multiple subcentimeter hepatic lesion seen on the prior CT of 03/22/2019 remain suspicious despite hypometabolic activity. These may be hypometabolic given their small size. MRI liver of 03/23/2019 co nfirms metastasis.
== END | disposition home or self-care (01) ==
LOC: RADPETMAIN 13:37
PROVIDERS: ATTEND Internal Medicine Hematology & Oncology
DX: K76.89 Other specified diseases of liver (principal); C25.2 Malignant neoplasm of tail of pancreas; C78.7 Secondary malignant neoplasm of liver and intrahepatic bile duct
CPT/HCPCS: 78815; A9552

== ENCOUNTER → 2019-06-23 | Outpatient (CLI) | payer OTHER ==
[2019-06-23 13:03] LABS: ALT 29 U/L (4-49); AST 34 U/L (17-59); African American GFR (CKD) >90 (>60 ml/min/1.73 sqM); Albumin 4.5 g/dL (3.5-5.0); Alkaline Phosphatase 134 U/L (38-126); Anion Gap 7 mmol/L; Blood Urea Nitrogen 9 mg/dL (9-20); Calcium 9.6 mg/dL (8.4-10.2); Carbon Dioxide 34 mmol/L (22-30); Chloride 96 mmol/L (98-107); Glucose 110 mg/dL (74-99); Non-African American GFR(CKD) >90 (>60 ml/min/1.73 sqM); Potassium 4.2 mmol/L (3.5-5.1); Sodium 137 mmol/L (137-145); Total Bilirubin 0.4 mg/dL (0.2-1.3); Total Protein 7.8 g/dL (6.3-8.2)
[2019-06-23 13:41] LABS: Basophils # (A) 0.1 k/uL (0-0.2); Basophils % (A) 1 %; Eosinophils # (A) 0.2 k/uL (0-0.7); Eosinophils % (A) 2 %; HCT 46.7 % (39.0-53.0); HGB 14.7 gm/dL (13.0-17.5); Lymphocytes # (A) 1.5 k/uL (1.0-4.8); Lymphocytes % (A) 17 %; MCH 28.1 pg (25.0-35.0); MCHC 31.5 g/dL (31.0-37.0); MCV 89.2 fL (80.0-100.0); Mean Platelet Volume 7.9; Monocytes # (A) 0.5 k/uL (0-1.0); Monocytes % (A) 6 %; Neutrophils # (A) 6.6 k/uL (1.3-7.7); Neutrophils % (A) 74 %; Platelet Count 197 k/uL (150-450); RBC 5.24 m/uL (4.30-5.90); RDW 14.8 % (11.5-15.5); WBC 8.9 k/uL (3.8-10.6)
--- NOTE | 2019-06-23 14:03 | CT ---
EXAMINATION TYPE: CT ChestAbdPelvis w con DATE OF EXAM: 06/23/2019 COMPARISON: March 22, 2019 HISTORY: Pre Treatment pancreatic cancer. CT DLP: 666.9 mGycm CONTRAST: CT scan of the chest, abdomen and pelvis is performed with Oral Contrast and with IV Contrast, patien t injected with 100 mL of Isovue 300. CT Chest: LUNGS: The lungs are clear and free of infiltrate or atelectasis. No pulmonary nodule or mass is det ected. No pleural effusion or CT evidence of interstitial lung disease. MEDIASTINUM: Thoracic aorta is of normal caliber. The heart is not enlarged. No evidence for media stinal mass or adenopathy. HILAR STRUCTURES: No evidence for mass. No hilar adenopathy is appreciated. OTHER: No significant abnormality. CONTRAST CT ABDOMEN AND PELVIS FINDINGS: LIVER/GB: No calcified gallstones. Multiple ill-defined lesions are seen scattered throughout the l iver which have enlarged. Anterior segment right hepatic lobe measures 1.6 cm versus 8 mm previously. Additional new lesions are seen within the central portion of the liver measuring 1.4 cm, periphery of the anterior segment right hepatic lobe 1.5 cm, posterior segment right hepatic lobe 1.6 cm. Infer ior tip of the right hepatic lobe measuring 1.2 cm. Biliary tree is of normal caliber. PANCREAS: Enlarging exophytic mass pancreatic tail is again noted and currently measures approximatel y 8.2 x 7.8 x 6.5 cm versus 6.0 x 5.5 cm previously. Adjacent solid mass is identified medial to the dominant mass measuring 5.1 cm in greatest dimension versus 2.8 cm previously. An additional soft tis sanam mass is noted to extend into the gastrohepatic ligament region and measures approximately 5.9 x 3 .4 cm versus 2.2 cm previously. There is a new mass noted adjacent to the greater gastric curvature m easuring 2.8 cm. SPLEEN: No splenic enlargement. No lesion seen. ADRENALS: No nodule. No thickening. KIDNEYS/BLADDER: No hydronephrosis. No nephrolithiasis. No disctinct renal mass. BOWEL: Normal appendix. Normal bowel caliber. No inflammation. GENITAL ORGANS: No gross abnormality. LYMPH NODES: Left periaortic adenopathy noted with multiple enlarged lymph nodes measuring up to 1.3 cm AORTA: No significant abnormality. OSSEOUS STRUCTURES: Postoperative and degenerative change lower lumbar. OTHER: No significant additional abnormality is seen. IMPRESSION: 1. Enlarging pancreatic tail mass with additional adjacent masses which may reflect adenopathy versus additional pancreatic masses. See above. 2. Increasing vague lesions scattered throughout the liver. 3. Adenopathy as discussed.
== END | disposition home or self-care (01) ==
LOC: RADCTMAIN 11:21
PROVIDERS: ATTEND Internal Medicine Hematology & Oncology
DX: R59.9 Enlarged lymph nodes, unspecified (principal); K76.89 Other specified diseases of liver; C25.9 Malignant neoplasm of pancreas, unspecified; I10 Essential (primary) hypertension
CPT/HCPCS: 80053; 85025; 86301; 71260; 74177; 36415; Q9967

== ENCOUNTER → 2019-08-10 | Outpatient (CLI) | payer OTHER ==
[2019-08-10 12:04] LABS: African American GFR (CKD) >90 (>60 ml/min/1.73 sqM); Blood Urea Nitrogen 16 mg/dL (9-20); Non-African American GFR(CKD) 85 (>60 ml/min/1.73 sqM)
--- NOTE | 2019-08-10 14:18 | CT ---
EXAMINATION TYPE: CT ChestAbdPelvis w con DATE OF EXAM: 08/10/2019 COMPARISON: 06/23/2019 HISTORY: Pancreatic cancer follow up. CT DLP: 612.9 mGycm CONTRAST: CT scan of the chest, abdomen and pelvis is performed with Oral Contrast and with IV Contrast, patien t injected with 100 mL of Isovue M300. CT Chest: LUNGS: The lungs are clear and free of infiltrate or atelectasis. No pulmonary nodule or mass is det ected. No pleural effusion or CT evidence of interstitial lung disease. MEDIASTINUM: Thoracic aorta is of normal caliber. The heart is not enlarged. No evidence for media stinal mass or adenopathy. HILAR STRUCTURES: No evidence for mass. No hilar adenopathy is appreciated. OTHER: No significant abnormality. CONTRAST CT ABDOMEN AND PELVIS FINDINGS: LIVER/GB: No calcified gallstones. Redemonstrated are multiple ill-defined hepatic lesions. The lar gest lesion is seen within the anterior segment right hepatic lobe image 72 and measures 2.5 cm versu s 1.6 cm previously. Remaining lesions are stable with regards to overall morphology and size. No def inite new lesions are appreciated. Biliary tree is of normal caliber. PANCREAS: Again noted is an exophytic pancreatic mass involving the pancreatic tail with greater cyst ic component identified at this time which currently measures 10.2 x 8.8 x 7.1 cm versus 8.2 x 7.8 x 6.5 cm previously. Adjacent solid mass measures 5.2 cm in greatest dimension versus 5.1 cm previously . Mass in the region of the gastrohepatic ligament measures 6.2 x 4.3 cm versus 5.9 x 3.4 cm previous ly. Mass adjacent to the greater gastric curvature has enlarged and also demonstrates greater cystic component at this time and currently measures 6.5 x 5.8 x 4.5 cm. No additional masses identified wit h certainty. SPLEEN: No splenic enlargement. No lesion seen. ADRENALS: No nodule. No thickening. KIDNEYS/BLADDER: No hydronephrosis. No nephrolithiasis. No disctinct renal mass. BOWEL: Normal appendix. Normal bowel caliber. No inflammation. GENITAL ORGANS: No gross abnormality. LYMPH NODES: No greater than 1cm abdominal or pelvic lymph nodes are appreciated. AORTA: No significant abnormality. OSSEOUS STRUCTURES: No significant abnormality is seen. OTHER: No significant additional abnormality is seen. IMPRESSION: 1. Enlarging pancreatic and peripancreatic masses. 2. Dominant hepatic lesion has increased in size. Remaining lesions are stable. 3. Previously noted enlarged left periaortic adenopathy has improved in the interval.
== END | disposition home or self-care (01) ==
LOC: RADCTMAIN 11:18
PROVIDERS: ATTEND Internal Medicine Hematology & Oncology
DX: C25.9 Malignant neoplasm of pancreas, unspecified (principal); R59.9 Enlarged lymph nodes, unspecified
CPT/HCPCS: 82565; 84520; 71260; 74177; J1642; Q9967 ×2

== ENCOUNTER → 2019-09-06 | Outpatient (CLI) | payer OTHER ==
--- NOTE | 2019-09-06 16:15 | CT ---
EXAMINATION TYPE: CT brain wo con DATE OF EXAM: 09/06/2019 HISTORY: dysphasia, memory issues, history of pancreatic cancer CT DLP: 826.8 mGycm. Automated Exposure Control for Dose Reduction was Utilized. TECHNIQUE: CT scan of the head is performed without contrast. COMPARISON: 03/18/2018 CT brain FINDINGS: There is no acute intracranial hemorrhage, midline shift, or mass effect identified. Brain parenchyma appears normal. The ventricles, sulci, and cisterns are normal in size and configuration. No extra-axial fluid collection. Bones and extracranial soft tissues are intact. The globes are gross ly symmetric. Visualized sinuses and mastoid air cells are clear. No depressed calvarial fracture. IMPRESSION: No acute intracranial hemorrhage, midline shift, or mass effect.
== END | disposition home or self-care (01) ==
LOC: RADCTMAIN 15:47
PROVIDERS: ATTEND Internal Medicine Hematology & Oncology
DX: C25.9 Malignant neoplasm of pancreas, unspecified (principal); R41.3 Other amnesia
CPT/HCPCS: 70450

== ENCOUNTER → 2019-10-13 | Outpatient (CLI) | payer OTHER ==
[2019-10-13 12:24] LABS: African American GFR (CKD) >90 (>60 ml/min/1.73 sqM); Blood Urea Nitrogen 10 mg/dL (9-20); Non-African American GFR(CKD) >90 (>60 ml/min/1.73 sqM)
--- NOTE | 2019-10-16 18:36 | CT ---
EXAMINATION TYPE: CT ChestAbdPelvis w con DATE OF EXAM: 10/13/2019 COMPARISON: CT chest abdomen pelvis 08/10/2019, PET/CT 05/05/2019, CT abdomen pelvis 05/17/2018. HISTORY: Pancreatic cancer. CT DLP: 1199 mGycm Automated exposure control for dose reduction was used. CONTRAST: CT scan of the chest, abdomen and pelvis is performed with Oral Contrast and with IV Contrast, patien t injected with 100 mL of Isovue M300. FINDINGS: LUNGS: Lungs are grossly clear. No concerning parenchymal mass or nodule identified. No pleural effus ion. No pneumothorax. The tracheobronchial tree is patent. MEDIASTINUM/SOFT TISSUES: No axillary, hilar, or mediastinal lymphadenopathy greater than 1 cm. Cardi ac size is normal. No pericardial effusion. No thoracic aortic aneurysm. LIVER: Multiple hepatic metastatic lesions redemonstrated, the majority of which are unchanged in siz e. However there are 2 lesions of the inferior liver which have decreased in size. Lesion measuring 1 .3 x 1.0 cm (3:83), previously 1.5 x 1.1 cm. Lesion measuring 1.8 x 1.5 cm (3:75) is also more cystic , previously measuring 2.8 x 2.5 cm. BILIARY SYSTEM: Status post cholecystectomy. No intrahepatic or extra hepatic biliary ductal dilatati on. PANCREAS: There is redemonstrated exophytic mass off the distal pancreatic body/tail with interval in creased cystic appearance and decreased size measuring 6.7 x 6.5 cm (3:76), previously measuring 11.2 x 7.0 cm on 08/10/2019 (3:75). The inferior aspect the mass with cystic component measures 8.1 x 5.9 c m (3:83), previously measuring 9.6 x 6.7 cm. The adjacent solid mass posteromedially between the aort a and splenic vein is significantly decreased in size measuring 2.0 x 1.6 cm (3:75), previously 5.2 x 4.5 cm. The solid mass posterior to the stomach in the lesser sac is decreased in size measuring 2.0 x 1.6 cm (3:68), previously 4.9 x 4.0 cm. The mass within the region of the gastrosplenic ligament a djacent to the greater curvature of the stomach is increased in size measuring 6.4 x 7.6 cm (3:68), p reviously 5.6 x 6.7 cm. There is upstream pancreatic tail parenchymal atrophy and pancreatic ductal d ilatation measuring up to 5 mm, which is similar to 08/10/2019. SPLEEN: Normal. ADRENALS: Normal. KIDNEYS: Normal. BOWEL: No evidence of bowel obstruction. The colon is incompletely distended, with some mucosal fat deposition from the hepatic flexure through the splenic flexure. PERITONEUM: There are numerous new and increased size peritoneal nodules, measuring up to 9 mm in th e left upper quadrant and 7 mm in the right upper quadrant. No pneumoperitoneum. No free fluid. LYMPH NODES: No lymphadenopathy. PELVIS: Normal. VASCULATURE: No abdominal aortic aneurysm. There is no evidence of occlusion or significant stenosis of the left gastric artery, splenic vein, or superior mesenteric vein. MUSCULOSKELETAL: There are 2 subcentimeter osteolytic lesions of the right iliac bone which are unch anged versus 05/17/2018 CT, and are indeterminate. A few scattered sclerotic lesions of the left pelvis are also unchanged. There are no new aggressive osseous destructive lesions. Postsurgical changes of the spine. IMPRESSION: Mixed response of known pancreatic cancer versus 08/10/2019 CT comparison: 1. All of the pancreatic and peripancreatic masses demonstrate significant interval decrease in size, except for the left upper quadrant mass near the greater curvature of the stomach which has increase d in size to 6.4 x 7.6 cm, previously 5.6 x 6.7 cm on 08/10/2019. 2. Decreased size of the 2 dominant hepatic metastases, with similar appearance of the remaining meta stases. 3. New and increased size of numerous peritoneal metastatic nodules, largest measuring 8 mm. 4. Mild submucosal fat deposition of the transverse colon may represent treatment-related colitis. 5. No metastatic disease of the chest.
== END | disposition home or self-care (01) ==
LOC: RADPROMAIN 11:37
PROVIDERS: ATTEND Internal Medicine Hematology & Oncology
DX: C78.6 Secondary malignant neoplasm of retroperitoneum and peritoneum (principal); C25.9 Malignant neoplasm of pancreas, unspecified; C78.7 Secondary malignant neoplasm of liver and intrahepatic bile duct; E65 Localized adiposity
CPT/HCPCS: 82565; 84520; 71260; 74177; Q9967 ×2

== ENCOUNTER → 2019-12-19 | Outpatient (CLI) | payer OTHER ==
[2019-12-19 13:36] LABS: African American GFR (CKD) >90 (>60 ml/min/1.73 sqM); Blood Urea Nitrogen 7 mg/dL (9-20); Non-African American GFR(CKD) 85 (>60 ml/min/1.73 sqM)
--- NOTE | 2019-12-19 15:14 | CT ---
EXAMINATION TYPE: CT ChestAbdPelvis w con DATE OF EXAM: 12/19/2019 COMPARISON: 10/13/2019, 08/10/2019, 06/23/2019 HISTORY: 49-year-old male Pancreatic CA, observation for mets. Last chemotherapy 2 weeks ago. TECHNIQUE: Contiguous axial scanning of the chest, abdomen, and pelvis performed with IV Contrast, pa tient injected with 100 mL of Isovue 300. Delayed images through the kidneys were obtained. Coronal/s agittal reconstructions performed. CT DLP: 491 mGycm Automated exposure control for dose reduction was used. FINDINGS: CHEST: Heart normal size without pericardial effusion. Ectatic ascending aorta at 3.9 cm. Conventional arch vessel branching anatomy. Mildly enlarged caliber to the main right and left pulmonary arteries measuring up to 2.7 cm. This ma y reflect underlying pulmonary hypertension. Right anterior chest wall injection port catheter tip at the lower SVC. No thoracic lymphadenopathy by CT size criteria. Retained fluid within the thoracic esophagus. No consolidation or pleural effusion. Some strandy scar at the periphery of the right base. Minimal b iapical pleural parenchymal scarring. ABDOMEN: Numerous liver lesions show improvement, for example within the right liver lobe, axial image 24 luisa uring 9 mm versus 1.7 cm, previously. Peripheral right liver lobe, axial image 15, measuring 8 mm beena lizette 1.3 cm, previously. Additional lesions are very difficult to identify now. Portal venous system is patent. No biliary ductal dilatation. Adrenal glands within normal limits. Spleen enlarged at 14.4 cm. Symmetric uptake and excretion of contrast from both kidneys. Tiny 7 mm right mid pole cortical hypod ensity likely a tiny cyst. Large partially necrotic mass of the pancreatic tail. This measures up to 7.2 x 6.1 cm, superiorly (v ersus 7.6 x 6.5 cm, previously). Contiguous cystic area more inferiorly measures up to 8.4 x 5.8 cm ( versus 8.3 x 5.9 cm, previously). A left lateral mural based nodule measures 1.2 cm versus 9 mm, prev iously. A preaortic lymph node at the level of the kidneys as considerably decreased in size in axial image 7 4. Gastrohepatic ligament lymph node has decreased in size at 1.4 cm versus 1.9 cm, previously. A complex cystic lesion within the anterior left upper quadrant measures 6.9 x 5.0 cm versus 7.7 x 6. 1 cm, previously. Soft tissue nodularity along the inferior margin measures 1.3 cm versus 9 mm, previously. Some new peritoneal nodularity along the left lateral flank, axial image 85 and 91 measuring up to 7 mm. Prominent fluid-filled small bowel loops throughout good represent enteritis or ileus. Scattered mild to moderate stool. No pericolic inflammatory change. PELVIS: Bladder partially distended. Prostate gland is enlarged at 5.6 cm wide. No abnormal fluid collection the pelvis or pelvic lymphadenopathy. BONES: Facet arthropathy lower lumbar spine. Degenerative disc disease moderately advanced at L4-L5 with int erspinous fusion along its posterior elements. Grade 1 retrolisthesis here. No osseous destructive pr ocess. IMPRESSION: 1. THERE HAS BEEN OVERALL PARTIAL TREATMENT RESPONSE WITH IMPROVEMENT FOLLOWS: 2. MOST OF THE LIVER LESIONS HAVE ENTIRELY RESOLVED (2 LESIONS REMAIN AND ARE SMALLER MEASURING UP TO 9 MM NOW), SOME OF THE PERIPANCREATIC LYMPH NODES HAVE DECREASED IN SIZE, FOR EXAMPLE, IN THE GASTRO HEPATIC LIGAMENT REGION MEASURING 1.4 CM VERSUS 1.9 CM, PREVIOUSLY. THE MIXED SOLID CYSTIC MASSES ACE TERED AT THE PANCREATIC TAIL AND LEFT UPPER QUADRANT PERSIST BUT HAVE DECREASED IN SIZE BY ABOUT A CE NTIMETER (STILL LARGE IN SIZE MEASURING UP TO 8.4 CM). 3. HOWEVER, FINDINGS THAT SHOW WORSENING COMPARED TO 10/13/2019 INCLUDED A COUPLE NEW LEFT-SIDED PERITO [place] NODULES MEASURING UP TO 7 MM AND A COUPLE SOFT TISSUE NODULES IN THE LEFT UPPER QUADRANT ADJACEN T TO THE CYSTIC MASSES NOW MEASURING UP TO 1.3 CM VERSUS 9 MM, PREVIOUSLY. ONGOING FOLLOW-UP RECOMMEN DED.
== END | disposition home or self-care (01) ==
LOC: RADCTMAIN 12:39
PROVIDERS: ATTEND Internal Medicine Hematology & Oncology
DX: C25.9 Malignant neoplasm of pancreas, unspecified (principal)
CPT/HCPCS: 82565; 84520; 71260; 74177; Q9967

== ENCOUNTER → 2020-03-01 | Outpatient (CLI) | payer OTHER ==
[2020-03-01 13:09] LABS: African American GFR (CKD) >90 (>60 ml/min/1.73 sqM); Blood Urea Nitrogen 10 mg/dL (9-20); Non-African American GFR(CKD) >90 (>60 ml/min/1.73 sqM)
--- NOTE | 2020-03-01 15:29 | CT ---
EXAMINATION TYPE: CT ChestAbdPelvis w con DATE OF EXAM: 03/01/2020 COMPARISON: Most recent CT December 19, 2019 and older CTs. Prior PET/CT May 05, 2019.2 HISTORY: Pancreatic Cancer CT DLP: 509.20 mGycm. Automated Exposure Control for Dose Reduction was Utilized. CONTRAST: CT scan of the thorax, abdomen and pelvis is performed with oral water and with IV Contrast, patient injected with 100 ml mL of Isovue 300. FINDINGS: LUNGS: The lungs remain grossly clear, there is no concerning no parenchymal mass or nodule identifie d. There is no pleural effusion or pneumothorax seen. The tracheobronchial tree is patent. MEDIASTINUM: There are no greater than 1 cm hilar or mediastinal lymph nodes. No cardiomegaly or pe ricardial effusion is seen. OTHER: Stable right internal jugular Mediport catheter. LIVER/GB: Scattered vague hypodense metastatic lesions are once again seen. There is 1.6 cm lesion po sterior segment right hepatic lobe image 186 similar in appearance to most recent study axial image 6 9. There is vague right sided peripheral 1.2 cm hypodense lesion image 158 and more prominent from pr ior study. There is vague 1.0 cm lesion posterior right hepatic lobe near the right kidney axial karey ge 178 not clearly seen on most recent prior. Vague inferior posterior right hepatic lobe lesion imag e 206 suspected. Additional new lesions are present seen better on series 5. PANCREAS: Heterogeneous mass distal body level measures 6.7 x 5.8 cm prior study image 60 series 5 fa irly stable or slightly smaller from prior study. There is more prominent inferior solid component. L eft upper quadrant heterogeneous mass measures 5.7 x 5.3 cm axial image 173 stable or slightly smalle r in size with increased solid enhancing component however. Fairly stable 1.2 cm solid nodule inferio r to this axial image 190. There are worsening peritoneal deposits throughout the abdomen for referen ce. 7 mm lesion axial image 241 anterior to right of midline. Additional nodules noted axial image 2 32 series 3 for reference. SPLEEN: Persistent mild splenomegaly at 13.7 cm long exercise was 158. ADRENALS: No significant abnormality is seen. KIDNEYS: No significant abnormality is seen. BOWEL: Suboptimal distention of bowel makes evaluation suboptimal. Areas of mild to moderate wall thi ckening in the colon are present. No suspicious small or large bowel dilatation. GENITAL ORGANS: Enlarged prostate gland consistent with BPH.. LYMPH NODES: No greater than 1cm abdominal or pelvic lymph nodes are appreciated. OSSEOUS STRUCTURES: Grade 1 retrolisthesis L4 on L5 with moderate disc space narrowing. Posterior jerardo gical change. No significant change from prior. OTHER: No significant additional abnormality is seen. IMPRESSION: Overall mixed response, worsening hepatic metastatic disease and peritoneal metastatic di sease. Primary lesions in region of pancreas stable or smaller in size but more prominent enhancing s olid components are noted.
== END | disposition home or self-care (01) ==
LOC: RADPROMAIN 12:17
PROVIDERS: ATTEND Internal Medicine Hematology & Oncology
DX: K86.89 Other specified diseases of pancreas (principal); C78.7 Secondary malignant neoplasm of liver and intrahepatic bile duct; C78.6 Secondary malignant neoplasm of retroperitoneum and peritoneum; C25.9 Malignant neoplasm of pancreas, unspecified
CPT/HCPCS: 82565; 84520; 71260; 74177; 36415; Q9967

== ENCOUNTER 2020-05-05 10:10 | Inpatient (IN) | payer OTHER ==
[2020-05-05] MEDS ORDERED: SODIUM CHLORIDE 0.9% 1,000 ML IV STA (10:34)
[2020-05-05] MEDS ORDERED: HYDROmorphone 0.5 MG/0.5 ML SYRINGE IVP STA ×2 (10:59→13:10)
[2020-05-05] MEDS ORDERED: ONDANSETRON 4 MG/2 ML VIAL IVP STA (10:59)
--- NOTE | 2020-05-05 11:00 | ED ---
Abdominal Pain HPI - General Chief Complaint: Abdominal Pain Stated Complaint: STOMACH PAIN Time Seen by Provider: 05/05/20 10:33 Source: patient, RN notes reviewed Mode of arrival: ambulatory Limitations: no limitations - History of Present Illness Initial Comments: This a 41-year-old male presents emergency Department chief complaint of diffuse abdominal pain. Patient states approximately over a year ago he was diagnosed with metastatic pancreatic cancer. Patient states he went to multiple rounds of chemo and radiation. Patient states that he was told he was in remission. Patient states her last few days she's had increasing pain no recent weight loss. He states he is unable to eat or drink. Denies fevers chills chest pain shortness of breath no point pain states his abdomen feels to be distended. - Related Data Home Medications Medication Instructions Recorded Confirmed Hydrocodone/Acetaminophen [[place] 1 tab PO Q6H PRN 03/22/19 05/05/20 10-325] ALPRAZolam [Xanax] 0.5 mg PO BID 05/05/20 05/05/20 Famotidine 40 mg PO BID 05/05/20 05/05/20 Gabapentin 800 mg PO QID 05/05/20 05/05/20 OLANZapine [ZyPREXA] 5 mg PO DAILY 05/05/20 05/05/20 Previous Rx's Medication Instructions Recorded amLODIPine [Norvasc] 5 mg PO DAILY #30 tab 03/27/19 Allergies Allergy/AdvReac Type Severity Reaction Status Date / Time No Known Allergies Allergy Verified 05/05/20 11:13 Review of Systems ROS Statement: Those systems with pertinent positive or pertinent negative responses have been documented in the HPI. ROS Other: All systems not noted in ROS Statement are negative. Past Medical History Past Medical History: Cancer, GERD/Reflux, Hypertension Additional Past Medical History / Comment(s): Pancreatitis, chronic low back pain, insomnia. History of Any Multi-Drug Resistant Organisms: None Reported Past Surgical History: Appendectomy, Back Surgery, Cholecystectomy Additional Past Surgical History / Comment(s): Low back surgery/coflex device, pain clinic procedures, colonoscopy Past Anesthesia/Blood Transfusion Reactions: No Reported Reaction Past Psychological History: No Psychological Hx Reported Past Alcohol Use History: Heavy, Occasional Past Drug Use History: Marijuana - Past Family History Father Family Medical History: Cancer (colon) Additional Family Medical History / Comment(s): colon cancer with surgery. Mother Family Medical History: No Reported History Additional Family Medical History / Comment(s): Benign polyps General Exam Limitations: no limitations General appearance: alert, in no apparent distress Head exam: Present: atraumatic, normocephalic, normal inspection Eye exam: Present: normal appearance, PERRL, EOMI. Absent: scleral icterus, conjunctival injection, periorbital swelling ENT exam: Present: normal exam, normal oropharynx, mucous membranes moist Neck exam: Present: normal inspection. Absent: tenderness, meningismus, lymphadenopathy Respiratory exam: Present: normal lung sounds bilaterally. Absent: respiratory distress, wheezes, rales, rhonchi, stridor Cardiovascular Exam: Present: regular rate, normal rhythm, normal heart sounds. Absent: systolic murmur, diastolic murmur, rubs, gallop, clicks GI/Abdominal exam: Present: soft, tenderness (Moderate diffuse), normal bowel sounds. Absent: distended, guarding, rebound, rigid Back exam: Absent: CVA tenderness (R), CVA tenderness (L) Neurological exam: Present: alert, oriented X3 Skin exam: Present: warm, dry, intact, normal color. Absent: rash Course Vital Signs 05/05/20 05/05/20 05/05/20 10:17 11:30 13:00 Temperature 97.7 F 98.8 F Pulse Rate 89 84 80 Respiratory 18 18 18 Rate Blood Pressure 101/69 103/83 118/87 O2 Sat by Pulse 100 99 98 Oximetry Medical Decision Making - Medical Decision Making 41-year-old presented for increasing abdominal pain CT shows evidence progression of pancreatic disease. Patient was under the impression that he was in remission. Patient will be admitted for oncology evaluation, pain control, replacement of his hypokalemia. - Lab Data Result diagrams: 05/05/20 11:24 05/05/20 11:24 Lab Results 05/05/20 05/05/20 05/05/20 Range/Units 11:24 11:24 11:24 WBC 16.8 H (3.8-10.6) k/uL RBC 4.43 (4.30-5.90) m/uL Hgb 13.5 (13.0-17.5) gm/dL Hct 39.1 (39.0-53.0) % MCV 88.1 (80.0-100.0) fL MCH 30.5 (25.0-35.0) pg MCHC 34.6 (31.0-37.0) g/dL RDW 14.0 (11.5-15.5) % Plt Count 176 (150-450) k/uL MPV 7.3 Neutrophils % 91 % Lymphocytes % 5 % Monocytes % 3 % Eosinophils % 1 % Basophils % 0 % Neutrophils # 15.4 H (1.3-7.7) k/uL Lymphocytes # 0.8 L (1.0-4.8) k/uL Monocytes # 0.5 (0-1.0) k/uL Eosinophils # 0.1 (0-0.7) k/uL Basophils # 0.0 (0-0.2) k/uL PT 10.1 (9.0-12.0) sec INR 0.9 (<1.2) APTT 28.2 (22.0-30.0) sec Sodium 130 L (137-145) mmol/L Potassium 2.9 L (3.5-5.1) mmol/L Chloride 88 L (98-107) mmol/L Carbon Dioxide 29 (22-30) mmol/L Anion Gap 13 mmol/L BUN 13 (9-20) mg/dL Creatinine 0.70 (0.66-1.25) mg/dL Est GFR (CKD-EPI)AfAm >90 (>60 ml/min/1.73 sqM) Est GFR (CKD-EPI)NonAf >90 (>60 ml/min/1.73 sqM) Glucose 143 H (74-99) mg/dL Plasma Lactic Acid Flaco (0.7-2.0) mmol/L Calcium 8.8 (8.4-10.2) mg/dL Total Bilirubin 0.9 (0.2-1.3) mg/dL AST 22 (17-59) U/L ALT 6 (4-49) U/L Alkaline Phosphatase 134 H (38-126) U/L Total Protein 5.8 L (6.3-8.2) g/dL Albumin 3.4 L (3.5-5.0) g/dL Amylase 30 (30-110) U/L Lipase 350 H (23-300) U/L Urine Color Urine Appearance (Clear) Urine pH (5.0-8.0) Ur Specific [place] (1.001-1.035) Urine Protein (Negative) Urine Glucose (UA) (Negative) Urine Ketones (Negative) Urine Blood (Negative) Urine Nitrite (Negative) Urine Bilirubin (Negative) Urine Urobilinogen (<2.0) mg/dL Ur Leukocyte Esterase (Negative) Urine RBC (0-5) /hpf Urine WBC (0-5) /hpf Hyaline Casts (0-2) /lpf Urine Mucus (None) /hpf 05/05/20 05/05/20 Range/Units 11:24 11:46 WBC (3.8-10.6) k/uL RBC (4.30-5.90) m/uL Hgb (13.0-17.5) gm/dL Hct (39.0-53.0) % MCV (80.0-100.0) fL MCH (25.0-35.0) pg MCHC (31.0-37.0) g/dL RDW (11.5-15.5) % Plt Count (150-450) k/uL MPV Neutrophils % % Lymphocytes % % Monocytes % % Eosinophils % % Basophils % % Neutrophils # (1.3-7.7) k/uL Lymphocytes # (1.0-4.8) k/uL Monocytes # (0-1.0) k/uL Eosinophils # (0-0.7) k/uL Basophils # (0-0.2) k/uL PT (9.0-12.0) sec INR (<1.2) APTT (22.0-30.0) sec Sodium (137-145) mmol/L Potassium (3.5-5.1) mmol/L Chloride (98-107) mmol/L Carbon Dioxide (22-30) mmol/L Anion Gap mmol/L BUN (9-20) mg/dL Creatinine (0.66-1.25) mg/dL Est GFR (CKD-EPI)AfAm (>60 ml/min/1.73 sqM) Est GFR (CKD-EPI)NonAf (>60 ml/min/1.73 sqM) Glucose (74-99) mg/dL Plasma Lactic Acid Flaco 2.6 H* (0.7-2.0) mmol/L Calcium (8.4-10.2) mg/dL Total Bilirubin (0.2-1.3) mg/dL AST (17-59) U/L ALT (4-49) U/L Alkaline Phosphatase (38-126) U/L Total Protein (6.3-8.2) g/dL Albumin (3.5-5.0) g/dL Amylase (30-110) U/L Lipase (23-300) U/L Urine Color Yellow Urine Appearance Clear (Clear) Urine pH 6.0 (5.0-8.0) Ur Specific B[place] 1.014 (1.001-1.035) Urine Protein Trace H (Negative) Urine Glucose (UA) Negative (Negative) Urine Ketones Negative (Negative) Urine Blood Small H (Negative) Urine Nitrite Negative (Negative) Urine Bilirubin Negative (Negative) Urine Urobilinogen <2.0 (<2.0) mg/dL Ur Leukocyte Esterase Negative (Negative) Urine RBC 1 (0-5) /hpf Urine WBC 1 (0-5) /hpf Hyaline Casts 6 H (0-2) /lpf Urine Mucus Few H (None) /hpf Disposition Clinical Impression: Metastasis from pancreatic cancer, Hypokalemia, Dehydration Disposition: ADMITTED IP TO THIS [facility] Condition: Serious Referrals: Mila Horowitz MD [Primary Care Provider] - 1-2 days
[2020-05-05 11:52] LABS: Basophils % (A) 0 %; Eosinophils # (A) 0.1 k/uL (0-0.7); Eosinophils % (A) 1 %; HCT 39.1 % (39.0-53.0); HGB 13.5 gm/dL (13.0-17.5); Lymphocytes # (A) 0.8 k/uL (1.0-4.8); Lymphocytes % (A) 5 %; MCH 30.5 pg (25.0-35.0); MCHC 34.6 g/dL (31.0-37.0); MCV 88.1 fL (80.0-100.0); Mean Platelet Volume 7.3; Monocytes # (A) 0.5 k/uL (0-1.0); Monocytes % (A) 3 %; Neutrophils # (A) 15.4 k/uL (1.3-7.7); Neutrophils % (A) 91 %; Platelet Count 176 k/uL (150-450); RBC 4.43 m/uL (4.30-5.90); WBC 16.8 k/uL (3.8-10.6)
[2020-05-05 11:56] LABS: ALT 6 U/L (4-49); AST 22 U/L (17-59); African American GFR (CKD) >90 (>60 ml/min/1.73 sqM); Albumin 3.4 g/dL (3.5-5.0); Alkaline Phosphatase 134 U/L (38-126); Amylase 30 U/L (30-110); Anion Gap 13 mmol/L; Blood Urea Nitrogen 13 mg/dL (9-20); Calcium 8.8 mg/dL (8.4-10.2); Carbon Dioxide 29 mmol/L (22-30); Chloride 88 mmol/L (98-107); Glucose 143 mg/dL (74-99); Lipase 350 U/L (23-300); Non-African American GFR(CKD) >90 (>60 ml/min/1.73 sqM); Sodium 130 mmol/L (137-145); Total Bilirubin 0.9 mg/dL (0.2-1.3); Total Protein 5.8 g/dL (6.3-8.2)
[2020-05-05 11:57] LABS: Potassium 2.9 mmol/L (3.5-5.1)
[2020-05-05 11:59] LABS: INR 0.9 (<1.2); Partial Thromboplastin Time 28.2 sec (22.0-30.0); Prothrombin Time 10.1 sec (9.0-12.0)
[2020-05-05] MEDS ORDERED: POTASSIUM CHLORIDE ER 20 MEQ TAB.ER PO STA (12:36)
[2020-05-05 12:39] LABS: Appearance,Urine Clear (Clear); Bilirubin,Urine Negative (Negative); Blood,Urine Small (Negative); Color,Urine Yellow; Glucose,Urine (UA) Negative (Negative); Hyaline Casts,Urine 6 /lpf (0-2); Ketones,Urine Negative (Negative); Leukocyte Esterase,Urine Negative (Negative); Mucus,Urine Few /hpf; Nitrite,Urine Negative (Negative); Protein,Urine Trace (Negative); RBC,Urine 1 /hpf (0-5); Specific Gravity,Urine 1.014 (1.001-1.035); Urobilinogen,Urine <2.0 mg/dL (<2.0); WBC,Urine 1 /hpf (0-5)
--- NOTE | 2020-05-05 12:51 | CT ---
EXAMINATION TYPE: CT abdomen pelvis w con DATE OF EXAM: 05/05/2020 COMPARISON: 03/01/2020 HISTORY: Generalized pain with nuasea. Hx of pancreatic cancer CT DLP: 626.2 mGycm Automated exposure control for dose reduction was used. TECHNIQUE: Helical acquisition of images was performed from the lung bases through the pelvis. CONTRAST: Performed without Oral Contrast and with IV Contrast, patient injected with 100 mL of Isovue 300. FINDINGS: The lung bases are clear. In the region of the tail the pancreas there is a large heterogeneous 7.3 x 8.0 cm mass containing ga s and necrosis. This is consistent with the previously described pancreatic neoplasm which has progre ssed significantly in size. Immediately adjacent to this mass is a secondary heterogeneous 5.1 x 5.9 cm mass and a 6.0 x 3.5 cm cyst/abscess. Multiple peritoneal metastatic nodules are seen all of which have increased in size in the interval. There are multiple scattered low density ill-defined lesions within the liver consistent with liver m etastasis. These lesions have progressed slightly in size in the interval since the prior study. Ther e are surgical absence of the gallbladder but no biliary ductal dilatation. No adrenal masses are seen. The kidneys excrete contrast probably symmetrically and there is no solid renal mass or hydronephrosi s. There is no retroperitoneal adenopathy or hemorrhage in the caliber of the abdominal aorta is norm al. The bowel loops are not dilated and there is no evidence of obstruction. Regarding the pelvis, there is no free fluid, abscess, mass or adenopathy. The osseous structures are intact. IMPRESSION: Marked progression of the pancreatic disease and metastatic disease to the liver and peritoneum as de scribed above. There is no evidence of bowel obstruction, free intraperitoneal air or fluid.
[2020-05-05] MEDS ORDERED: HYDROmorphone 0.5 MG/0.5 ML SYRINGE IVP PRN (13:12)
[2020-05-05] MEDS ORDERED: NALOXONE 0.4 MG/ML 1 ML VIAL IV PRN (13:12)
[2020-05-05] MEDS ORDERED: ONDANSETRON 4 MG/2 ML VIAL IVP PRN (13:12)
[2020-05-05] MEDS: SODIUM CHLORIDE 0.9% 1,000 ML IV SCH (13:29)
[2020-05-05] MEDS: POTASSIUM CHLORIDE 20 MEQ in WATER FOR INJECTION 1 100ML.BAG IVPB SCH ×2 (13:29→15:21)
[2020-05-05] MEDS: HYDROmorphone 1 MG/ML 1 ML SYRINGE IVP PRN ×2 (16:55→21:52)
[2020-05-05] MEDS: GABAPENTIN 400 MG CAP PO SCH (21:52)
[2020-05-05] MEDS: ALPRAZolam 0.5 MG TAB PO SCH (21:52)
[2020-05-05] MEDS: FAMOTIDINE 20 MG TAB PO SCH (21:52)
--- NOTE | 2020-05-05 22:54 | P.HPIM ---
History of Present Illness H&P Date: 05/05/20 Chief Complaint: Abdominal pain Mr. Romero is a 49-year-old male with a known past medical history of pancreatic cancer, hypertension, GERD coming into the hospital with a chief complaint of diffuse abdominal pain. Patient states that he was diagnosed with pancreatic cancer 1 year back and has been following with Dr. Samuel. He states that for the past 3-4 days he has increasing abdominal pain. He states that he could not sleep for more than 3-4 hours straight, as the pain would wake him up from sleep. He states he has pain medications but does not like to take them. His pain is mostly in the epigastric area and right upper quadrant. It is associated with nausea. He has been not eating or drinking for the past 4 days. He also mentions about going to [facility] and getting a biopsy done couple of weeks back. Patient denies having any fevers chills or rigors. No chest pain or palpitations. No cough or difficulty in breathing. Patient denies having any headaches, loss of consciousness or weakness of his extremity is. In the ER, patient had a CAT scan of the abdomen and pelvis showing marked progression of pancreatic disease and metastatic disease to the liver and peritoneum. No evidence of bowel obstruction. He had labs done showing white count of 16.8, hemoglobin 13.5, platelets 176. Sodium 1:30, potassium 2.9, chloride 88, bicarbonate 29. BUN 13 and creatinine 0.70 platelet Of 2.6. Urine Analysis Negative for Nitrites and Leukocyte Esterase. Reyes virus PCR Negative. He is admitted for dehydration and pain management. Review of Systems REVIEW OF SYSTEMS: CONSTITUTIONAL: Generalized weakness, fatigue HEENT: No recent visual problems or hearing problems. Denied any sore throat. CARDIOVASCULAR: No chest pain or palpitations. No orthopnea PND. PULMONARY: No cough or difficulty in breathing. GASTROINTESTINAL: As per HPI NEUROLOGICAL: No headaches, no weakness, no numbness. HEMATOLOGICAL: Denies any bleeding or petechiae. GENITOURINARY: Denies any burning micturition, frequency, or urgency. MUSCULOSKELETAL/RHEUMATOLOGICAL: Generalized weakness ENDOCRINE: Denies any polyuria or polydipsia. The rest of the 14-point review of systems is negative. Past Medical History Past Medical History: Cancer, GERD/Reflux, Hypertension Additional Past Medical History / Comment(s): Pancreatitis, chronic low back pain, insomnia. History of Any Multi-Drug Resistant Organisms: None Reported Past Surgical History: Appendectomy, Back Surgery, Cholecystectomy Additional Past Surgical History / Comment(s): Low back surgery/coflex device, pain clinic procedures, colonoscopy Past Anesthesia/Blood Transfusion Reactions: No Reported Reaction Past Psychological History: No Psychological Hx Reported Past Alcohol Use History: Heavy, Occasional Past Drug Use History: Marijuana - Past Family History Father Family Medical History: Cancer (colon) Additional Family Medical History / Comment(s): colon cancer with surgery. Mother Family Medical History: No Reported History Additional Family Medical History / Comment(s): Benign polyps Medications and Allergies Home Medications Medication Instructions Recorded Confirmed Type Hydrocodone/Acetaminophen [[place] 1 tab PO Q6H PRN 03/22/19 05/05/20 History 10-325] amLODIPine [Norvasc] 5 mg PO DAILY #30 tab 03/27/19 05/05/20 Rx ALPRAZolam [Xanax] 0.5 mg PO BID 05/05/20 05/05/20 History Famotidine 40 mg PO BID 05/05/20 05/05/20 History Gabapentin 800 mg PO QID 05/05/20 05/05/20 History OLANZapine [ZyPREXA] 5 mg PO DAILY 05/05/20 05/05/20 History Allergies Allergy/AdvReac Type Severity Reaction Status Date / Time No Known Allergies Allergy Verified 05/05/20 11:13 Physical Exam Vitals: Vital Signs Temp Pulse Resp BP Pulse Ox 05/05/20 16:49 99.8 F H 89 18 136/94 99 05/05/20 13:33 99.1 F 83 18 117/88 100 05/05/20 13:00 80 18 118/87 98 05/05/20 11:30 98.8 F 84 18 103/83 99 05/05/20 10:17 97.7 F 89 18 101/69 100 Intake and Output 05/05/20 05/05/20 05/05/20 06:59 14:59 22:59 Other: Weight 59.874 kg PHYSICAL EXAMINATION: GENERAL: The patient is alert and oriented x3, not in any acute distress. Emaciated HEENT: Pupils are round and equally reacting to light. EOMI. No scleral icterus. No conjunctival pallor. CARDIOVASCULAR: S1 and S2 heard. PULMONARY: Bilateral basilar crackles. ABDOMEN: Soft, positive for diffuse tenderness. MUSCULOSKELETAL: No joint swelling or deformity. EXTREMITIES: No cyanosis, clubbing or pitting edema NEUROLOGICAL: Gross neurological examination did not reveal any focal deficits. SKIN: No rashes. Results CBC & Chem 7: 05/05/20 11:24 05/05/20 11:24 Labs: Abnormal Lab Results - Last 24 Hours (Table) 05/05/20 05/05/20 05/05/20 Range/Units 11:24 11:24 11:24 WBC 16.8 H (3.8-10.6) k/uL Neutrophils # 15.4 H (1.3-7.7) k/uL Lymphocytes # 0.8 L (1.0-4.8) k/uL Sodium 130 L (137-145) mmol/L Potassium 2.9 L (3.5-5.1) mmol/L Chloride 88 L (98-107) mmol/L Glucose 143 H (74-99) mg/dL Plasma Lactic Acid Flaco 2.6 H* (0.7-2.0) mmol/L Alkaline Phosphatase 134 H (38-126) U/L Total Protein 5.8 L (6.3-8.2) g/dL Albumin 3.4 L (3.5-5.0) g/dL Lipase 350 H (23-300) U/L Urine Protein (Negative) Urine Blood (Negative) Hyaline Casts (0-2) /lpf Urine Mucus (None) /hpf 05/05/20 Range/Units 11:46 WBC (3.8-10.6) k/uL Neutrophils # (1.3-7.7) k/uL Lymphocytes # (1.0-4.8) k/uL Sodium (137-145) mmol/L Potassium (3.5-5.1) mmol/L Chloride (98-107) mmol/L Glucose (74-99) mg/dL Plasma Lactic Acid Flaco (0.7-2.0) mmol/L Alkaline Phosphatase (38-126) U/L Total Protein (6.3-8.2) g/dL Albumin (3.5-5.0) g/dL Lipase (23-300) U/L Urine Protein Trace H (Negative) Urine Blood Small H (Negative) Hyaline Casts 6 H (0-2) /lpf Urine Mucus Few H (None) /hpf Assessment and Plan Assessment: ASSESSMENT Intractable abdominal pain 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 He was given IV fluids. Lactic acid has been trending down. Pain management. Oncology consulted. Further recommendations to follow depending on the progress of the patient.
[2020-05-06] MEDS: ENOXAPARIN 30 MG/0.3 ML SYRINGE SQ SCH ×2 (00:25→08:05)
[2020-05-06] MEDS: HYDROmorphone 1 MG/ML 1 ML SYRINGE IVP PRN ×5 (01:14→19:12)
[2020-05-06] MEDS: SODIUM CHLORIDE 0.9% 1,000 ML IV SCH ×3 (04:52→23:53)
[2020-05-06] MEDS: HYDROcodone/APAP 10-325MG 1 EACH TAB PO PRN ×4 (05:05→23:30)
[2020-05-06 07:09] LABS: ALT 6 U/L (4-49); AST 17 U/L (17-59); African American GFR (CKD) >90 (>60 ml/min/1.73 sqM); Albumin 2.7 g/dL (3.5-5.0); Albumin/Globulin Ratio 1.1; Alkaline Phosphatase 110 U/L (38-126); Anion Gap 6 mmol/L; Blood Urea Nitrogen 8 mg/dL (9-20); Calcium 8.2 mg/dL (8.4-10.2); Carbon Dioxide 29 mmol/L (22-30); Chloride 92 mmol/L (98-107); Globulin 2.4 g/dL; Glucose 114 mg/dL (74-99); Magnesium 1.9 mg/dL (1.6-2.3); Non-African American GFR(CKD) >90 (>60 ml/min/1.73 sqM); Potassium 3.4 mmol/L (3.5-5.1); Sodium 127 mmol/L (137-145); Total Bilirubin 0.7 mg/dL (0.2-1.3); Total Protein 5.1 g/dL (6.3-8.2)
[2020-05-06] MEDS: GABAPENTIN 400 MG CAP PO SCH ×4 (08:04→20:43)
[2020-05-06] MEDS: ALPRAZolam 0.5 MG TAB PO SCH ×2 (08:04→20:43)
[2020-05-06] MEDS: FAMOTIDINE 20 MG TAB PO SCH ×2 (08:04→20:43)
[2020-05-06 09:06] LABS: Basophils # (A) 0.01 X 10*3/uL (0.00-0.10); Basophils % (A) 0.1 %; Eosinophils # (A) 0.01 X 10*3/uL (0.04-0.35); Eosinophils % (A) 0.1 %; HGB 11.4 g/dL (13.0-17.0); Lymphocytes # (A) 0.77 X 10*3/uL (0.90-5.00); Lymphocytes % (A) 7.5 %; MCH 29.5 pg (27.0-32.0); MCHC 32.6 g/dL (32.0-37.0); MCV 90.7 fL (80.0-97.0); Mean Platelet Volume 10.2 fL (9.5-12.2); Monocytes # (A) 0.73 X 10*3/uL (0.20-1.00); Monocytes % (A) 7.1 %; Neutrophils # (A) 8.64 X 10*3/uL (1.80-7.70); Neutrophils % (A) 84.7 %; Platelet Count 150 X 10*3/uL (140-440); RBC 3.86 X 10*6/uL (4.40-5.60); RDW 13.6 % (11.5-14.5); WBC 10.21 X 10*3/uL (4.50-10.00)
[2020-05-06] MEDS: amLODIPine 5 MG TAB PO SCH (09:18)
[2020-05-06] MEDS: OLANZapine 5 MG TAB PO SCH (09:18)
[2020-05-06 11:38] LABS: Amylase <30 U/L (30-110); Lipase 222 U/L (23-300)
[2020-05-06] MEDS: PANTOPRAZOLE 40 MG/10 ML VIAL IVP SCH ×2 (11:59→20:43)
[2020-05-06] MEDS ORDERED: Potassium Replacement Protocol 1 EACH MISC MISCELLANE PRN ×2 (13:24→14:55)
[2020-05-06] MEDS ORDERED: Magnesium Replacement Protocol 1 EACH MISC MISCELLANE PRN (13:24)
[2020-05-06] MEDS: POTASSIUM CHLORIDE ER 20 MEQ TAB.ER PO SCH ×2 (15:21→16:32)
--- NOTE | 2020-05-06 16:09 | PN ---
PROGRESS NOTE DATE OF SERVICE: 05/06/2020 This 49-year-old gentleman was admitted with metastatic pancreatic cancer complaining of severe abdominal pain and weakness. The pain is in the upper abdomen, almost constant. Hematology/Oncology following the patient closely as well. The most recent CT scan showed some progression of the mass lesions also. The patient also had multiple electrolyte abnormalities including hyponatremia and hypokalemia also. PAST MEDICAL HISTORY: Reviewed. REVIEW OF SYSTEMS: CARDIOVASCULAR SYSTEM: No angina. RESPIRATORY SYSTEM: As mentioned earlier. GI: As mentioned earlier. : No dysuria. NERVOUS SYSTEM: As mentioned earlier. CURRENT MEDICATIONS: Current medications are reviewed and include [place], Xanax, Norvasc, Pepcid, Neurontin, Zyprexa, Zofran, Protonix. PHYSICAL EXAMINATION: The patient is alert and oriented x3. Pulse is 96, blood pressure 133/85, respirations 17, temperature 99.6, pulse ox 98% on room air. HEENT: Conjunctivae normal. NECK: No jugular venous distention. CARDIOVASCULAR: S1, S2 muffled. RESPIRATORY: Breath sounds diminished at the bases. A few scattered rhonchi. ABDOMEN: Soft, mild diffuse distention and some tenderness also present. No guarding. No rigidity. No mass palpable. LEGS: No edema, no swelling. NERVOUS SYSTEM: No focal deficits. LABS: WBC 10.2, hemoglobin 11.4, sodium 127, potassium 3.4. UA noted. ASSESSMENT: 1. Severe intractable abdominal pain with failure of outpatient treatment, possibly secondary to pancreatic malignancy and progression. 2. Pancreatic malignancy with metastasis. 3. Hyperlipidemia. 4. Hyponatremia. 5. Hypokalemia. 6. Increased WBC. 7. Anemia, normocytic disease. 8. Increased random blood glucose. 9. Gastroesophageal reflux disease. 10.Hypertension. 11.History of chronic pancreatitis. 12.History of insomnia. 13.History of appendectomy. 14.History of back surgery. 15.History of cholecystectomy. 16.History of EtOH heavy abuse. 17.History of THC. 18.History of benign polyps. RECOMMENDATIONS AND DISCUSSION: Recommend to continue current medications, continue symptomatic treatment and add Protonix to the current regimen as well as IV pain medications. DVT prophylaxis. Closely follow with Hematology/Oncology. Guarded prognosis because of multiple complex medical issues. Further recommendations to follow. MMODL / IJN: [id number] /
[2020-05-06] MEDS: KETOROLAC 15 MG/ML 1 ML VIAL IVP SCH ×2 (16:32→23:30)
--- NOTE | 2020-05-06 21:04 | P.CONS ---
History of Present Illness - Reason for Consult Consult date: 05/06/20 Pancreatic Cancer Requesting physician: Andre Marina - Chief Complaint Epigastric Pain - History of Present Illness Mr Romero is a pleasant white male, initially seen in consult at [facility] on 03/23/19. The patient had a history of heavy EtOH use and had presented with episodes of abdominal pain that had been ongoing since at least 07/27. He had had various diagnoses, including cholecystitis, suspected normal minus, and at least one episode of suspected pancreatitis. In 11/26 he was told that he may have a pancreatic mass but would need workup out of town as his insurance was not accepted locally. The patient did have a follow-up at an outside hospital in 05/28. The patient was admitted this time with recurrent abdominal pain, nausea and vomiting with presentation consistent with pancreatitis. He did improve with symptomatic treatment. CT of the abdomen on 03/22/19 had shown a mass at the tail of the pancreas measuring 6 x 7 x 5.5 cm with surrounding inflammatory change. There were foci of low attenuation present within the liver, at least 6 lesions, largest about 1.2 cm in the right lobe highly suspicious for metastasis. MRI of the liver on 03/23/19 confirmed the presence of a palpated a mass. There was ductal dilation distal to the mass. There was a large no suspected causing mass effect on the left renal vein measuring 3.2 at 2.7 cm, as well as a smaller node posterior and superior to the penetrating body measuring 2.2 x 2.8 cm. There was confirmation of multiple lesions in the liver in both lobes, with the largest 1.5 cm in the posterior right lobe. The patient proceeded to liver biopsy on 03/24/19 and was discharged. Core biopsy showed benign parenchyma with mild steatosis. The patient was then referred for an endoscopic ultrasound which was performed at [facility] on 04/21/19. This confirmed the presence of an 8.1 x 4.1 cm heterogenous mixed mass at the pancreatic neck. There also appeared to be one malignant appearing lymph nodes in the shawn hepatis measuring 3.6 x 2.8 cm which was not biopsied as the portal vein was overlying it. 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 The patient was seen for his first office visit on 04/28/19. he had a PET scan ordered, that was positive in the pancreatic neck mass. On this it appeared that the larger 9+ centimeter mass was actually a peripancreatic node or mass which was necrotic and also positive. Uptake was also noted and gastrohepatic lymph nodes. No uptake was seen in the liver lesions. These were still felt to be suspicious. The the patient was referred to the [facility] for an opinion per his request. Telemedicine audiovisual 06/01/19: The patient was evaluated at the [facility] and was felt to have advanced disease which was not surgical. Systemic chemotherapy with palliative intent was recommended, with similar regimens as to pancreatic adenocarcinoma. The patient denied any fevers/chills/nausea/vomiting. Appetite is diminished but stable. He has some upper abdominal discomfort off and on but not on a persistent basis. This seems to be more related to his diet at this time. No obvious bleeding noted. Review of systems otherwise as per HPI and negative out of 10 Telemedicine Audiovisual 07/06/19: The patient started gemcitabine and Abraxane on 06/28/19. He is status post day 8 of cycle #1. He denied any fevers/chills or vomiting. He has had some mild nausea intermittently. There is some decrease in appetite for about 2 days post chemotherapy and mild increase in fatigue. He continues to perform his ADLs. He however is complaining of increased abdominal pain and intermittent distention across the upper abdomen. He is on [place] 10-325 from his PCP but states that these are not being as effective. Review of systems otherwise as per HPI and negative out of 10 as above. The patient is status post cycle 2. molecular testing revealed him to be MSI stable, with NGS negative. the patient was noted to have progression after 2 cycles of Gemzar and Abraxane. He was therefore changed to modified FOLFIRINOX in 08/27. He is status post 12 cycles dose was reduced after cycle 6, because of progressive drop in energy and appetite. He tolerated treatment better with the decrease in dose. A CT scan after 8 cycles showed stability pancreatic lesion and peripancreatic nodes, but possibly some new lesions in the left upper quadrant. The patient was seen at the [facility] an case discussed with Dr Cardenas. Based on the mixed response, it was recommended that the patient continue treatment for another 3-4 cycles with repeat imaging. He therefore resume his regimen on 01/10/20 Last seen in office 04/02/20 - after this visit a discussion with his [facility] physician was had between and his treating physician there, the plan was to have additional biopsy for biomarkers and then start with [place], Abraxan and xeloda however insurance has denied this plan, stating he progressed on FO LFIRINOX and the only option is capcitabine alone, however this would likely be ineffective considering his progression on the same. Last noted was he missed his initial biopsy cheduled due to transportation. He did finally get performed last week Patient presents for midepigastric pain. Associated nausea. no vomiting, denies fevers or chills. CT reveals progressive disease. Review of Systems All systems: negative Constitutional: Reports as per HPI Past Medical History Past Medical History: Cancer, GERD/Reflux, Hypertension Additional Past Medical History / Comment(s): Pancreatitis, chronic low back pain, insomnia. History of Any Multi-Drug Resistant Organisms: None Reported Past Surgical History: Appendectomy, Back Surgery, Cholecystectomy Additional Past Surgical History / Comment(s): Low back surgery/coflex device, pain clinic procedures, colonoscopy Past Anesthesia/Blood Transfusion Reactions: No Reported Reaction Past Psychological History: No Psychological Hx Reported Past Alcohol Use History: Heavy, Occasional Past Drug Use History: Marijuana - Past Family History Father Family Medical History: Cancer (colon) Additional Family Medical History / Comment(s): colon cancer with surgery. Mother Family Medical History: No Reported History Additional Family Medical History / Comment(s): Benign polyps Medications and Allergies Home Medications Medication Instructions Recorded Confirmed Type Hydrocodone/Acetaminophen [[place] 1 tab PO Q6H PRN 03/22/19 05/05/20 History 10-325] amLODIPine [Norvasc] 5 mg PO DAILY #30 tab 03/27/19 05/05/20 Rx ALPRAZolam [Xanax] 0.5 mg PO BID 05/05/20 05/05/20 History Famotidine 40 mg PO BID 05/05/20 05/05/20 History Gabapentin 800 mg PO QID 05/05/20 05/05/20 History OLANZapine [ZyPREXA] 5 mg PO DAILY 05/05/20 05/05/20 History Allergies Allergy/AdvReac Type Severity Reaction Status Date / Time No Known Allergies Allergy Verified 05/05/20 11:13 Physical Exam Vitals: Vital Signs Temp Pulse Resp BP Pulse Ox 05/05/20 20:00 18 05/05/20 16:49 99.8 F H 89 18 136/94 99 05/05/20 13:33 99.1 F 83 18 117/88 100 05/05/20 13:00 80 18 118/87 98 05/05/20 11:30 98.8 F 84 18 103/83 99 05/05/20 10:17 97.7 F 89 18 101/69 100 Intake and Output 05/05/20 05/05/20 05/06/20 14:59 22:59 06:59 Intake Total 550 Balance 550 Intake: Oral 550 Other: Weight 59.874 kg - Constitutional General appearance: cooperative, thin - EENT Eyes: EOMI, poor dentition ENT: NA/AT - Neck Neck: normal ROM - Respiratory Respiratory: bilateral: diminished - Cardiovascular Rhythm: regularly irregular - Gastrointestinal General gastrointestinal: tenderness - Integumentary Integumentary: pale - Neurologic Neurologic: CNII-XII intact - Musculoskeletal Musculoskeletal: generalized weakness - Psychiatric Psychiatric: A&O x's 3, appropriate affect Results CBC & Chem 7: 05/06/20 06:21 05/06/20 06:21 Labs: Abnormal Lab Results - Last 24 Hours (Table) 05/05/20 05/05/20 05/05/20 Range/Units 11:24 11:24 11:24 WBC 16.8 H (3.8-10.6) k/uL Neutrophils # 15.4 H (1.3-7.7) k/uL Lymphocytes # 0.8 L (1.0-4.8) k/uL Sodium 130 L (137-145) mmol/L Potassium 2.9 L (3.5-5.1) mmol/L Chloride 88 L (98-107) mmol/L Glucose 143 H (74-99) mg/dL Plasma Lactic Acid Flaco 2.6 H* (0.7-2.0) mmol/L Alkaline Phosphatase 134 H (38-126) U/L Total Protein 5.8 L (6.3-8.2) g/dL Albumin 3.4 L (3.5-5.0) g/dL Lipase 350 H (23-300) U/L Urine Protein (Negative) Urine Blood (Negative) Hyaline Casts (0-2) /lpf Urine Mucus (None) /hpf 05/05/20 Range/Units 11:46 WBC (3.8-10.6) k/uL Neutrophils # (1.3-7.7) k/uL Lymphocytes # (1.0-4.8) k/uL Sodium (137-145) mmol/L Potassium (3.5-5.1) mmol/L Chloride (98-107) mmol/L Glucose (74-99) mg/dL Plasma Lactic Acid Flaco (0.7-2.0) mmol/L Alkaline Phosphatase (38-126) U/L Total Protein (6.3-8.2) g/dL Albumin (3.5-5.0) g/dL Lipase (23-300) U/L Urine Protein Trace H (Negative) Urine Blood Small H (Negative) Hyaline Casts 6 H (0-2) /lpf Urine Mucus Few H (None) /hpf CT scan - abdomen: report reviewed CT scan - pelvis: report reviewed Assessment and Plan (1) Metastasis from pancreatic cancer Current Visit: Yes Status: Acute Code(s): C79.9 - SECONDARY MALIGNANT NEOPLASM OF UNSPECIFIED SITE; C25.9 - MALIGNANT NEOPLASM OF PANCREAS, UNSPECIFIED SNOMED Code(s): 986126613 (2) Abdominal pain Current Visit: No Status: Acute Code(s): R10.9 - UNSPECIFIED ABDOMINAL PAIN SNOMED Code(s): 90996925 Plan: Assessment and Recommendations: Metastatic Pancreatic Cancer: - Marked progression on recent scan - Status post biopsy from [facility] and awaiting further biomarkers and Caris testing. Mid-epigastric pain: - Agree with PPI, H2 and Olanzaprine MOnitor and plan to initiate treatment as soon as biomarker testing back and c marin testing.
[2020-05-06 23:28] VITALS: RESP 18
[2020-05-07] MEDS: KETOROLAC 15 MG/ML 1 ML VIAL IVP SCH ×2 (05:48→12:41)
[2020-05-07] MEDS: HYDROmorphone 1 MG/ML 1 ML SYRINGE IVP PRN ×2 (06:03→12:40)
[2020-05-07] MEDS: FAMOTIDINE 20 MG TAB PO SCH (08:50)
[2020-05-07] MEDS: HYDROcodone/APAP 10-325MG 1 EACH TAB PO PRN (08:50)
[2020-05-07] MEDS: ALPRAZolam 0.5 MG TAB PO SCH (08:50)
[2020-05-07] MEDS: GABAPENTIN 400 MG CAP PO SCH ×2 (08:50→12:41)
[2020-05-07] MEDS: PANTOPRAZOLE 40 MG/10 ML VIAL IVP SCH (08:50)
[2020-05-07] MEDS: OLANZapine 5 MG TAB PO SCH (08:51)
[2020-05-07] MEDS: amLODIPine 5 MG TAB PO SCH (08:51)
[2020-05-07] MEDS: ENOXAPARIN 30 MG/0.3 ML SYRINGE SQ SCH (08:51)
[2020-05-07 09:37] LABS: Basophils # (A) 0.01 X 10*3/uL (0.00-0.10); Basophils % (A) 0.1 %; Eosinophils # (A) 0.01 X 10*3/uL (0.04-0.35); Eosinophils % (A) 0.1 %; HCT 37.6 % (39.6-50.0); HGB 11.6 g/dL (13.0-17.0); Lymphocytes # (A) 0.72 X 10*3/uL (0.90-5.00); Lymphocytes % (A) 8.3 %; MCH 29.2 pg (27.0-32.0); MCHC 30.9 g/dL (32.0-37.0); MCV 94.7 fL (80.0-97.0); Mean Platelet Volume 9.9 fL (9.5-12.2); Monocytes # (A) 0.84 X 10*3/uL (0.20-1.00); Monocytes % (A) 9.7 %; Neutrophils # (A) 7.03 X 10*3/uL (1.80-7.70); Neutrophils % (A) 81.3 %; Platelet Count 165 X 10*3/uL (140-440); RBC 3.97 X 10*6/uL (4.40-5.60); RDW 13.7 % (11.5-14.5); WBC 8.65 X 10*3/uL (4.50-10.00)
[2020-05-07 09:56] LABS: African American GFR (CKD) 122.4 (60.0-200.0); Anion Gap 4.3 mmol/L (4.00-12.00); BUN/Creat Ratio 6.25 Ratio (12.00-20.00); Calcium 8.7 mg/dL (8.7-10.3); Carbon Dioxide 33.7 mmol/L (21.6-31.8); Magnesium 1.9 mg/dL (1.5-2.4); Non-African American GFR(CKD) 105.6 (60.0-200.0); Potassium 4.4 mmol/L (3.5-5.5)
[2020-05-07 12:35] VITALS: BP 123/80; PULSE 95; TEMP 98.7
[2020-05-07] MEDS: SODIUM CHLORIDE 0.9% 1,000 ML IV SCH (12:45)
--- NOTE | 2020-05-07 16:12 | PN ---
PROGRESS NOTE DATE OF SERVICE: 05/07/2020 This 49-year-old gentleman admitted with advanced pancreatic cancer, is being closely monitored. Patient has significant pain. Patient is on multiple pain medications. PAST MEDICAL HISTORY: Reviewed. REVIEW OF SYSTEMS: CARDIOVASCULAR SYSTEM: No angina. RESPIRATORY SYSTEM: As mentioned earlier. GI: As mentioned earlier. : No dysuria. NERVOUS SYSTEM: No numbness or weakness. CURRENT MEDICATIONS: Current medications are Louise, Xanax, Norvasc, Lovenox, Pepcid, Neurontin. Doses are reviewed. PHYSICAL EXAMINATION: Patient is alert and oriented x3. Pulse 95, blood pressure 123/80, respiration 18, temperature 98.7, pulse ox 97% on room air. HEENT: Conjunctivae normal. NECK: No jugular venous distention. CARDIOVASCULAR: S1, S2 muffled. RESPIRATORY: Breath sounds diminished at the bases. A few scattered rhonchi. ABDOMEN: Soft, mild diffuse tenderness present. Some rigidity also present. No guarding. No mass palpable. No ascites. LEGS: No edema, no swelling. NERVOUS SYSTEM: No focal deficits. LABS: WBC 8.65, hemoglobin 11.6, sodium 136, potassium 4.4. ASSESSMENT: 1. Severe intractable abdominal pain with failure of outpatient treatment, possibly secondary to metastatic pancreatic malignancy. 2. Pancreatic malignancy with metastasis. 3. Hyperlipidemia. 4. Hyponatremia. 5. Hypokalemia. 6. Increased WBC. 7. Anemia, normocytic disease. 8. Increased random blood sugar. 9. History of gastroesophageal reflux disease. 10.Hypertension. 11.History of chronic pancreatitis. RECOMMENDATIONS AND DISCUSSION: I recommend to continue current medication, continue symptomatic treatment. Continue with the pain medication. Continue with proton pump inhibitors. Closely follow with Hematology, Oncology. Overall prognosis extremely guarded because of multiple complex medical issues. Repeat labs. Further recommendations to follow. See orders for details. MMODL / IJN: [id number] /
--- NOTE | 2020-05-07 21:51 | P.PN ---
Subjective Progress Note Date: 05/07/20 Principal diagnosis: progressing pancreatic cancer He is feeling better and wants to go home. Objective - Vital Signs Vital signs: Vital Signs Temp 98.7 F 05/07/20 12:34 Pulse 95 05/07/20 12:34 Resp 18 05/07/20 12:34 BP 123/80 05/07/20 12:34 Pulse Ox 97 05/07/20 12:34 Intake & Output 05/06/20 05/07/20 05/07/20 18:59 06:59 18:59 Intake Total 400 440 Balance 400 440 Intake: Oral 400 440 Other: # Voids 1 1 - Exam - Constitutional General appearance: cooperative, thin - EENT Eyes: EOMI, poor dentition ENT: NA/AT - Neck Neck: normal ROM - Respiratory Respiratory: bilateral: diminished - Cardiovascular Rhythm: regularly irregular - Gastrointestinal General gastrointestinal: tenderness - Integumentary Integumentary: pale - Neurologic Neurologic: CNII-XII intact - Musculoskeletal Musculoskeletal: generalized weakness - Psychiatric Psychiatric: A&O x's 3, appropriate affect - Labs CBC & Chem 7: 05/07/20 04:52 05/07/20 04:52 Labs: Abnormal Lab Results - Last 24 Hours (Table) 05/07/20 05/07/20 Range/Units 04:52 04:52 RBC 3.97 L (4.40-5.60) X 10*6/uL Hgb 11.6 L (13.0-17.0) g/dL Hct 37.6 L (39.6-50.0) % MCHC 30.9 L (32.0-37.0) g/dL Lymphocytes # 0.72 L (0.90-5.00) X 10*3/uL Eosinophils # 0.01 L (0.04-0.35) X 10*3/uL Carbon Dioxide 33.7 H (21.6-31.8) mmol/L BUN 5.0 L (9.0-27.0) mg/dL BUN/Creatinine Ratio 6.25 L (12.00-20.00) Ratio Assessment and Plan (1) Metastasis from pancreatic cancer Status: Acute Code(s): C79.9 - SECONDARY MALIGNANT NEOPLASM OF UNSPECIFIED SITE; C25.9 - MALIGNANT NEOPLASM OF PANCREAS, UNSPECIFIED SNOMED Code(s): 056050788 (2) Abdominal pain Status: Acute Code(s): R10.9 - UNSPECIFIED ABDOMINAL PAIN SNOMED Code(s): 16643842 Plan: Assessment and Recommendations: Metastatic Pancreatic Cancer: - Marked progression on recent scan - Status post biopsy from [facility] and awaiting further biomarkers and Caris testing. Mid-epigastric pain: - Agree with PPI, H2 and Olanzaprine MOnitor and plan to initiate treatment as soon as biomarker testing back and caris testing. OK for discharge from onc standpoint.
--- NOTE | 2020-05-08 06:11 | DS ---
DISCHARGE SUMMARY DATE OF SERVICE: 05/07/2020 FINAL DIAGNOSIS: 1. Severe intractable abdominal pain with failure of outpatient treatment, possibly secondary to a pancreatic malignancy and progression. 2. Pancreatic malignancy with metastasis. 3. Hyperlipidemia. 4. Hyponatremia. 5. Hypokalemia. 6. Increased WBC. 7. Anemia of normocytic disease and anemia of malignancy. 8. Increased random blood sugar. 9. Gastroesophageal reflux disease. 10.Hypertension. 11.History of chronic pancreatitis. 12.History of insomnia. 13.History of appendectomy. 14.History of back surgery. 15.History of cholecystectomy. 16.History of EtOH and IV abuse. 17.History of THC. 18.History of benign polyps. DISCHARGE DISPOSITION: The patient left the hospital against medical advice. HISTORY OF PRESENT ILLNESS: This 49-year-old gentleman with a past medical history of multiple medical problems, history of retractable abdominal pain. Patient treated with symptomatically with multiple medications including Protonix. Patient was being closely monitored. Hematology/Oncology saw the patient. However, the patient was not willing to stay and left the hospital against medical advice. Please refer to the staff notes, previous consultation and progress notes for further details. Prognosis extremely guarded. The patient left the hospital AMA, against medical advice. MMODL / IJN: [id number] /
== END 2020-05-07 16:15 | disposition left against medical advice (07) | DRG 947 ==
LOC: EC 10:10 → 5NMEDONC 13:12 → OBSVTOIN 05-06 11:46
PROVIDERS: ADMIT Internal Medicine; ATTEND Internal Medicine
DX: G89.3 Neoplasm related pain (acute) (chronic) (principal); E43 Unspecified severe protein-calorie malnutrition; K85.90 Acute pancreatitis without necrosis or infection, unspecified; K86.1 Other chronic pancreatitis; C78.6 Secondary malignant neoplasm of retroperitoneum and peritoneum; C25.9 Malignant neoplasm of pancreas, unspecified; C78.7 Secondary malignant neoplasm of liver and intrahepatic bile duct; Z68.1 Body mass index [BMI] 19.9 or less, adult; Z20.822 Contact with and (suspected) exposure to COVID-19; E87.1 Hypo-osmolality and hyponatremia; E87.2 Acidosis; E86.0 Dehydration; R10.9 Unspecified abdominal pain; Z92.21 Personal history of antineoplastic chemotherapy; Z92.3 Personal history of irradiation; G89.29 Other chronic pain; M54.5 Low back pain; G47.00 Insomnia, unspecified; Z80.0 Family history of malignant neoplasm of digestive organs; E87.6 Hypokalemia; K21.9 Gastro-esophageal reflux disease without esophagitis; E86.1 Hypovolemia; E78.5 Hyperlipidemia, unspecified; D63.0 Anemia in neoplastic disease; I10 Essential (primary) hypertension; Z90.49 Acquired absence of other specified parts of digestive tract
CPT/HCPCS: 36415; 74177; 80048; 80053; 81001; 82150; 83605; 83690; 83735; 85025; 85610; 85730; 86301; 87635

== ENCOUNTER → 2020-07-30 | Outpatient (CLI) | payer OTHER ==
[2020-07-30 15:13] LABS: Anisocytosis Slight; Basophils % (A) 0 %; Eosinophils % (A) 0 %; HCT 34.2 % (39.0-53.0); HGB 10.4 gm/dL (13.0-17.5); Hypochromasia Slight; Lymphocytes # (A) 1.1 k/uL (1.0-4.8); Lymphocytes % (A) 12 %; MCH 25.5 pg (25.0-35.0); MCHC 30.3 g/dL (31.0-37.0); MCV 83.9 fL (80.0-100.0); Mean Platelet Volume 6.1; Monocytes # (A) 0.3 k/uL (0-1.0); Monocytes % (A) 4 %; Neutrophils # (A) 7.6 k/uL (1.3-7.7); Neutrophils % (A) 84 %; Platelet Count 490 k/uL (150-450); RBC 4.07 m/uL (4.30-5.90); RDW 16.3 % (11.5-15.5); WBC 9.1 k/uL (3.8-10.6)
[2020-07-30 15:37] LABS: ALT 7 U/L (4-49); AST 16 U/L (17-59); African American GFR (CKD) >90 (>60 ml/min/1.73 sqM); Albumin 3.7 g/dL (3.5-5.0); Alkaline Phosphatase 161 U/L (38-126); Anion Gap 9 mmol/L; Blood Urea Nitrogen 10 mg/dL (9-20); Calcium 9.1 mg/dL (8.4-10.2); Carbon Dioxide 29 mmol/L (22-30); Chloride 93 mmol/L (98-107); Glucose 182 mg/dL (74-99); Non-African American GFR(CKD) >90 (>60 ml/min/1.73 sqM); Potassium 4.4 mmol/L (3.5-5.1); Sodium 131 mmol/L (137-145); Total Bilirubin 0.2 mg/dL (0.2-1.3); Total Protein 6.6 g/dL (6.3-8.2)
--- NOTE | 2020-07-30 16:25 | CT ---
EXAMINATION TYPE: CT chest abdomen w con DATE OF EXAM: 07/30/2020 COMPARISON: 05/05/2020 HISTORY: Pancreatic ca. Pt refused second oral contrast dose. CT DLP: 433.50 mGycm CONTRAST: CT scan of the chest, abdomen is performed with Oral Contrast and with IV Contrast, patient injected with 100 mL of Isovue 300. CT Chest: LUNGS: The lungs are clear and free of infiltrate or atelectasis. No pulmonary nodule or mass is det ected. No pleural effusion or CT evidence of interstitial lung disease. MEDIASTINUM: Thoracic aorta is of normal caliber. The heart is not enlarged. No evidence for media stinal mass or adenopathy. HILAR STRUCTURES: No evidence for mass. No hilar adenopathy is appreciated. OTHER: No significant abnormality. CONTRAST CT ABDOMEN AND PELVIS FINDINGS: LIVER/GB: No calcified gallstones. Hepatic lesions persist without new lesions seen. The largest le scout is seen within the anterior segment right hepatic lobe and currently measures 1.3 cm versus prio r measurement of 1.8 cm. Biliary tree is of normal caliber. PANCREAS: Necrotic mass in the region of the pancreatic tail is redemonstrated and is slightly larger in size and currently measures 9.5 x 6.9 cm versus 9.2 x 6.1 cm. Adjacent solid mass also persists l aterally and measures 5.6 cm in greatest dimension versus 6.1 cm previously. Additional anterior flui d collection seen previously has resolved. SPLEEN: No splenic enlargement. No lesion seen. ADRENALS: No nodule. No thickening. KIDNEYS/BLADDER: No hydronephrosis. No nephrolithiasis. No disctinct renal mass. BOWEL: Normal appendix. Normal bowel caliber. No inflammation. LYMPH NODES: No greater than 1cm abdominal or pelvic lymph nodes are appreciated. AORTA: No significant abnormality. OSSEOUS STRUCTURES: No significant abnormality is seen. OTHER: Peritoneal lesions seen previously persist although may have improved slightly. IMPRESSION: 1. Grossly noted dominant necrotic mass pancreatic tail appears slightly larger in size. Adjacent sof t tissue mass is slightly smaller in size with resolution of an anterior fluid collection. Peritoneal nodules persist although appear to have improved slightly as has metastatic disease to the liver.
== END | disposition home or self-care (01) ==
LOC: RADPROMAIN 13:53
PROVIDERS: ATTEND Internal Medicine Hematology & Oncology
DX: C25.9 Malignant neoplasm of pancreas, unspecified (principal); C78.7 Secondary malignant neoplasm of liver and intrahepatic bile duct
CPT/HCPCS: 80053; 85025; 71260; 74160; 36415; Q9967

== ENCOUNTER 2020-08-29 13:07 | Inpatient (IN) | payer OTHER ==
--- NOTE | 2020-08-29 13:24 | ED ---
General Adult HPI - General Chief complaint: Altered Mental Status Stated complaint: Altered Mental Status Time Seen by Provider: 08/29/20 13:09 Source: family, EMS Mode of arrival: EMS Limitations: altered mental status - History of Present Illness Initial comments: Dictation was produced using [employer] dictation software. please excuse any grammatical, word or spelling errors. Chief Complaint: 50-year-old male with history of pancreatic cancer presents with 3 days of altered mental status. History of Present Illness: Is a 50-year-old male. History is obtained from EMS. EMS reports that they were called for altered mental status for the last 3 days. EMS was called by patient's mother. Patient allegedly has history of pancreatic cancer. It is unclear what patient's normal baseline mental status is. EMS reports that there are concerns that patient has not been noncompliant with his pancreatic cancer treatment. The ROS documented in this emergency department record has been reviewed and confirmed by me. Those systems with pertinent positive or negative responses have been documented in the HPI. All other systems are other negative and/or noncontributory. PHYSICAL EXAM: General Impression: Alert and oriented x2/4, not in acute distress HEENT: Normocephalic atraumatic, extra-ocular movements intact, pupils equal and reactive to light bilaterally, mucous membranes moist. Cardiovascular: Heart regular rate and rhythm Chest: Able to complete full sentences, no retractions, no tachypnea Abdomen: abdomen soft, non-tender, non-distended, no organomegaly Musculoskeletal: Pulses present and equal in all extremities, no peripheral edema Motor: no focal deficits noted Neurological: CN II-XII grossly intact, no focal motor or sensory deficits noted, moving all extremities with no asymmetry, no facial asymmetry, anal 2 out of 4, moderate aphasia Skin: Intact with no visualized rashes Psych: Normal affect and mood ED course: 50-year-old male presents with altered mental status. Allegedly patient has history of pancreatic cancer and is noncompliant with his cancer treatment. Vital signs upon arrival are within acceptable limits. Laboratory evaluation obtained. Hemoglobin 7.1 which is a approximately 3 g drop over the last month. Coag panel is unremarkable. Metabolic panel is negative. Stool occult blood is positive. Urine drug screen positive for opiates, benzos and marijuana. Computed tomography scan of the brain shows no acute processes. Patient reevaluated at bedside found to be in stable medical condition. His symptoms are not progressing. Patient be admitted with consultation to neurology and GI. He is given Protonix. EKG interpretation: Ventricular rate 72, normal sinus rhythm,. 1:30, care is 94, QTC 457. No IN prolongation, no QTC prolongation, no ST or T-wave changes noted. Overall, this EKG is unremarkable - Related Data Home Medications Medication Instructions Recorded Confirmed Hydrocodone/Acetaminophen [[place] 1 tab PO Q4H PRN 03/22/19 08/29/20 10-325] Famotidine 40 mg PO BID 05/05/20 08/29/20 Gabapentin 800 mg PO QID 05/05/20 08/29/20 OLANZapine [ZyPREXA] 5 mg PO DAILY 05/05/20 08/29/20 ALPRAZolam [Xanax] 1 mg PO BID 08/29/20 08/29/20 Loratadine [Claritin] 10 mg PO DAILY 08/29/20 08/29/20 Morphine Sulfate [Ms Contin] 15 mg PO HS 08/29/20 08/29/20 Pantoprazole [Protonix] 40 mg PO DAILY 08/29/20 08/29/20 Piqray 300mg 600 mg PO DAILY 08/29/20 08/29/20 Prochlorperazine [Compazine] 10 mg PO Q6H PRN 08/29/20 08/29/20 Previous Rx's Medication Instructions Recorded amLODIPine [Norvasc] 5 mg PO DAILY #30 tab 03/27/19 Allergies Allergy/AdvReac Type Severity Reaction Status Date / Time No Known Allergies Allergy Verified 08/29/20 14:23 Review of Systems ROS Statement: Those systems with pertinent positive or pertinent negative responses have been documented in the HPI. ROS Other: All systems not noted in ROS Statement are negative. Past Medical History Past Medical History: Cancer, GERD/Reflux, Hypertension Additional Past Medical History / Comment(s): Pancreatitis, chronic low back pain, insomnia, pancreatic CA History of Any Multi-Drug Resistant Organisms: None Reported Past Surgical History: Appendectomy, Back Surgery, Cholecystectomy Additional Past Surgical History / Comment(s): Low back surgery/coflex device, pain clinic procedures, colonoscopy Past Anesthesia/Blood Transfusion Reactions: No Reported Reaction Past Psychological History: No Psychological Hx Reported Smoking Status: Unknown if ever smoked Past Alcohol Use History: Heavy, Occasional Past Drug Use History: Marijuana - Past Family History Father Family Medical History: Cancer (colon) Additional Family Medical History / Comment(s): colon cancer with surgery. Mother Family Medical History: No Reported History Additional Family Medical History / Comment(s): Benign polyps General Exam Limitations: altered mental status Course Vital Signs 08/29/20 13:08 Temperature 98.8 F Pulse Rate 71 Respiratory 16 Rate Blood Pressure 103/70 O2 Sat by Pulse 95 Oximetry Medical Decision Making - Lab Data Result diagrams: 08/29/20 13:21 08/29/20 13: Lab Results 08/29/20 08/29/20 08/29/20 Range/Units 13:21 13:21 13:21 WBC 10.2 (3.8-10.6) k/uL RBC 2.69 L (4.30-5.90) m/uL Hgb 7.1 L D (13.0-17.5) gm/dL Hct 22.4 L (39.0-53.0) % MCV 83.2 (80.0-100.0) fL MCH 26.3 (25.0-35.0) pg MCHC 31.6 (31.0-37.0) g/dL RDW 17.8 H (11.5-15.5) % Plt Count 746 H (150-450) k/uL MPV 6.6 Neutrophils % 77 % Lymphocytes % 15 % Monocytes % 7 % Eosinophils % 0 % Basophils % 0 % Neutrophils # 7.8 H (1.3-7.7) k/uL Lymphocytes # 1.6 (1.0-4.8) k/uL Monocytes # 0.7 (0-1.0) k/uL Eosinophils # 0.0 (0-0.7) k/uL Basophils # 0.0 (0-0.2) k/uL Hypochromasia Moderate Anisocytosis Slight PT 11.6 (9.0-12.0) sec INR 1.1 (<1.2) APTT 24.6 (22.0-30.0) sec Sodium (137-145) mmol/L Potassium (3.5-5.1) mmol/L Chloride (98-107) mmol/L Carbon Dioxide (22-30) mmol/L Anion Gap mmol/L BUN (9-20) mg/dL Creatinine (0.66-1.25) mg/dL Est GFR (CKD-EPI)AfAm (>60 ml/min/1.73 sqM) Est GFR (CKD-EPI)NonAf (>60 ml/min/1.73 sqM) Glucose (74-99) mg/dL Calcium (8.4-10.2) mg/dL Magnesium (1.6-2.3) mg/dL Total Bilirubin (0.2-1.3) mg/dL AST (17-59) U/L ALT (4-49) U/L Alkaline Phosphatase (38-126) U/L Total Protein (6.3-8.2) g/dL Albumin (3.5-5.0) g/dL Stool Occult Blood (Negative) Urine Opiates Screen Detected H (NotDetected) Ur Oxycodone Screen Not Detected (NotDetected) Urine Methadone Screen Not Detected (NotDetected) Ur Propoxyphene Screen Not Detected (NotDetected) Ur Barbiturates Screen Not Detected (NotDetected) U Tricyclic Antidepress Not Detected (NotDetected) Ur Phencyclidine Scrn Not Detected (NotDetected) Ur Amphetamines Screen Not Detected (NotDetected) U Methamphetamines Scrn Not Detected (NotDetected) U Benzodiazepines Scrn Detected H (NotDetected) Urine Cocaine Screen Not Detected (NotDetected) U Marijuana (THC) Screen Detected H (NotDetected) Serum Alcohol mg/dL 08/29/20 08/29/20 Range/Units 13:21 14:29 WBC (3.8-10.6) k/uL RBC (4.30-5.90) m/uL Hgb (13.0-17.5) gm/dL Hct (39.0-53.0) % MCV (80.0-100.0) fL MCH (25.0-35.0) pg MCHC (31.0-37.0) g/dL RDW (11.5-15.5) % Plt Count (150-450) k/uL MPV Neutrophils % % Lymphocytes % % Monocytes % % Eosinophils % % Basophils % % Neutrophils # (1.3-7.7) k/uL Lymphocytes # (1.0-4.8) k/uL Monocytes # (0-1.0) k/uL Eosinophils # (0-0.7) k/uL Basophils # (0-0.2) k/uL Hypochromasia Anisocytosis PT (9.0-12.0) sec INR (<1.2) APTT (22.0-30.0) sec Sodium 134 L (137-145) mmol/L Potassium 3.7 (3.5-5.1) mmol/L Chloride 99 (98-107) mmol/L Carbon Dioxide 27 (22-30) mmol/L Anion Gap 8 mmol/L BUN 15 (9-20) mg/dL Creatinine 0.93 (0.66-1.25) mg/dL Est GFR (CKD-EPI)AfAm >90 (>60 ml/min/1.73 sqM) Est GFR (CKD-EPI)NonAf >90 (>60 ml/min/1.73 sqM) Glucose 122 H (74-99) mg/dL Calcium 9.2 (8.4-10.2) mg/dL Magnesium 2.1 (1.6-2.3) mg/dL Total Bilirubin 0.2 (0.2-1.3) mg/dL AST 33 (17-59) U/L ALT 10 (4-49) U/L Alkaline Phosphatase 118 (38-126) U/L Total Protein 5.9 L (6.3-8.2) g/dL Albumin 3.3 L (3.5-5.0) g/dL Stool Occult Blood Positive (Negative) Urine Opiates Screen (NotDetected) Ur Oxycodone Screen (NotDetected) Urine Methadone Screen (NotDetected) Ur Propoxyphene Screen (NotDetected) Ur Barbiturates Screen (NotDetected) U Tricyclic Antidepress (NotDetected) Ur Phencyclidine Scrn (NotDetected) Ur Amphetamines Screen (NotDetected) U Methamphetamines Scrn (NotDetected) U Benzodiazepines Scrn (NotDetected) Urine Cocaine Screen (NotDetected) U Marijuana (THC) Screen (NotDetected) Serum Alcohol <10 mg/dL Disposition Clinical Impression: GI bleed, Anemia, Altered mental status Disposition: ADMITTED IP TO THIS HOSP Condition: Fair Referrals: Mila Horowitz MD [Primary Care Provider] - 1-2 days
[2020-08-29 13:36] LABS: Anisocytosis Slight; Basophils % (A) 0 %; Eosinophils % (A) 0 %; HCT 22.4 % (39.0-53.0); Hypochromasia Moderate; Lymphocytes # (A) 1.6 k/uL (1.0-4.8); Lymphocytes % (A) 15 %; MCH 26.3 pg (25.0-35.0); MCHC 31.6 g/dL (31.0-37.0); MCV 83.2 fL (80.0-100.0); Mean Platelet Volume 6.6; Monocytes # (A) 0.7 k/uL (0-1.0); Monocytes % (A) 7 %; Neutrophils # (A) 7.8 k/uL (1.3-7.7); Neutrophils % (A) 77 %; Platelet Count 746 k/uL (150-450); RBC 2.69 m/uL (4.30-5.90); RDW 17.8 % (11.5-15.5); WBC 10.2 k/uL (3.8-10.6)
[2020-08-29 13:51] LABS: ALT 10 U/L (4-49); AST 33 U/L (17-59); African American GFR (CKD) >90 (>60 ml/min/1.73 sqM); Albumin 3.3 g/dL (3.5-5.0); Alcohol <10 mg/dL; Alkaline Phosphatase 118 U/L (38-126); Anion Gap 8 mmol/L; Blood Urea Nitrogen 15 mg/dL (9-20); Calcium 9.2 mg/dL (8.4-10.2); Carbon Dioxide 27 mmol/L (22-30); Chloride 99 mmol/L (98-107); Glucose 122 mg/dL (74-99); Magnesium 2.1 mg/dL (1.6-2.3); Non-African American GFR(CKD) >90 (>60 ml/min/1.73 sqM); Potassium 3.7 mmol/L (3.5-5.1); Sodium 134 mmol/L (137-145); Total Bilirubin 0.2 mg/dL (0.2-1.3); Total Protein 5.9 g/dL (6.3-8.2)
[2020-08-29 13:55] LABS: INR 1.1 (<1.2); Partial Thromboplastin Time 24.6 sec (22.0-30.0); Prothrombin Time 11.6 sec (9.0-12.0)
[2020-08-29 14:00] LABS: HGB 7.1 gm/dL (13.0-17.5)
--- NOTE | 2020-08-29 14:11 | CT ---
EXAMINATION TYPE: CT brain wo con DATE OF EXAM: 08/29/2020 COMPARISON: CT brain 09/06/2019 HISTORY: altered mental status, history of pancreatic CA CT DLP: 1100.4 mGycm. Automated Exposure Control for Dose Reduction was Utilized. TECHNIQUE: CT scan of the head is performed without contrast. FINDINGS: There is no acute intracranial hemorrhage, mass effect, or midline shift identified. The ventricles and sulci are within normal limits in size. The globes are intact and the visualized sin uses are remarkable for possible mucus retention cyst in the left maxillary sinus. IMPRESSION: No acute intracranial hemorrhage, mass effect, or midline shift is seen.
[2020-08-29 14:13] LABS: Cocaine Screen,Urine Not Detected (NotDetected); Opiate Screen,Urine Detected (NotDetected); Phencyclidine Screen,Urine Not Detected (NotDetected); Urn Cannabinoid Scrn Detected (NotDetected)
[2020-08-29 14:14] LABS: Amphetamine Screen,Urine Not Detected (NotDetected); Barbiturate Screen,Urine Not Detected (NotDetected); Benzodiazepines Screen,Urine Detected (NotDetected); Methadone Screen, Urine Not Detected (NotDetected); Oxycodone Screen, Urine Not Detected (NotDetected); Tricyclic Antidepressant,Urine Not Detected (NotDetected)
[2020-08-29] MEDS ORDERED: PANTOPRAZOLE 40 MG/10 ML VIAL IVP STA (14:53)
[2020-08-29] MEDS ORDERED: NALOXONE 0.4 MG/ML 1 ML VIAL IV PRN (14:55)
[2020-08-29] MEDS ORDERED: ACETAMINOPHEN TAB 325 MG TAB PO PRN (14:55)
[2020-08-29] MEDS: SODIUM CHLORIDE 0.9% 1,000 ML IV SCH (15:06)
[2020-08-29] MEDS ORDERED: PROCHLORPERAZINE 10 MG TAB PO PRN (18:53)
--- NOTE | 2020-08-29 18:58 | P.HPIM ---
History of Present Illness Mr. Romero is a 49-year-old male with a known past medical history of metastatic pancreatic cancer, hypertension, GERD Presents of 3 days of worsening confusion. Patient when seen at bedside he was awake alert has good attention span however most of his answers are unrelated to the questions and does not make much sense, however he answers some of the questions appropriately, he knew he is at the current hospital, however when a sked about the year he states that's the , and the name of the president he answered "Myron Marte". When asked if he has cancer he answered no although I it is documented in previous notes However patient denies any headache, no abdominal pain or chest pain, no weakness in upper or lower extremities. No blurred vision or slurred speech. No change in bowel habits. Other information was limited by the patient mental status. Vitas looks stable, blood pressure on the low side in . Lap showing low hemoglobin at 7.1 compared to 10.4 last month. Risks of CBC, BMP, liver enzymes are unremarkable. Review of Systems CONSTITUTIONAL: No fever, no malaise, no fatigue. HEENT: No recent visual problems or hearing problems. Denied any sore throat. CARDIOVASCULAR: No orthopnea, PND, no palpitations, no syncope. PULMONARY: No shortness of breath, no cough, no hemoptysis. GASTROINTESTINAL: No diarrhea, no nausea, no vomiting, no abdominal pain. Normoactive bowel sounds. NEUROLOGICAL: No headaches, no weakness, no numbness. HEMATOLOGICAL: Denies any bleeding or petechiae. GENITOURINARY: Denies any burning micturition, frequency, or urgency. MUSCULOSKELETAL/RHEUMATOLOGICAL: Denies any joint pain, swelling, or any muscle pain. ENDOCRINE: Denies any polyuria or polydipsia. Past Medical History Past Medical History: Cancer, GERD/Reflux, Hypertension Additional Past Medical History / Comment(s): Pancreatitis, chronic low back pain, insomnia, pancreatic CA History of Any Multi-Drug Resistant Organisms: None Reported Past Surgical History: Appendectomy, Back Surgery, Cholecystectomy Additional Past Surgical History / Comment(s): Low back surgery/coflex device, pain clinic procedures, colonoscopy Past Anesthesia/Blood Transfusion Reactions: No Reported Reaction Past Psychological History: No Psychological Hx Reported Smoking Status: Unknown if ever smoked Past Alcohol Use History: Heavy, Occasional Past Drug Use History: Marijuana - Past Family History Father Family Medical History: Cancer (colon) Additional Family Medical History / Comment(s): colon cancer with surgery. Mother Family Medical History: No Reported History Additional Family Medical History / Comment(s): Benign polyps Medications and Allergies Home Medications Medication Instructions Recorded Confirmed Type Hydrocodone/Acetaminophen [[place] 1 tab PO Q4H PRN 03/22/19 08/29/20 History 10-325] amLODIPine [Norvasc] 5 mg PO DAILY #30 tab 03/27/19 08/29/20 Rx Famotidine 40 mg PO BID 05/05/20 08/29/20 History Gabapentin 800 mg PO QID 05/05/20 08/29/20 History OLANZapine [ZyPREXA] 5 mg PO DAILY 05/05/20 08/29/20 History ALPRAZolam [Xanax] 1 mg PO BID 08/29/20 08/29/20 History Loratadine [Claritin] 10 mg PO DAILY 08/29/20 08/29/20 History Morphine Sulfate [Ms Contin] 15 mg PO HS 08/29/20 08/29/20 History Pantoprazole [Protonix] 40 mg PO DAILY 08/29/20 08/29/20 History Piqray 300mg 600 mg PO DAILY 08/29/20 08/29/20 History Prochlorperazine [Compazine] 10 mg PO Q6H PRN 08/29/20 08/29/20 History Allergies Allergy/AdvReac Type Severity Reaction Status Date / Time No Known Allergies Allergy Verified 08/29/20 14:23 Physical Exam Vitals: Vital Signs Temp Pulse Resp BP Pulse Ox 08/29/20 13:08 98.8 F 71 16 103/70 95 Intake and Output 08/28/20 08/29/20 08/29/20 22:59 06:59 14:59 Other: Weight 51.71 kg -GENERAL: The patient is alert and oriented x1 to place only , not in any acute distress. Thin built HEENT: Pupils are round and equally reacting to light. EOMI. No scleral icterus. No conjunctival pallor. Normocephalic, atraumatic. No pharyngeal erythema. No thyromegaly. CARDIOVASCULAR: S1 and S2 present. No murmurs, rubs, or gallops. PULMONARY: Chest is clear to auscultation, no wheezing or crackles. ABDOMEN: Soft, nontender, nondistended, normoactive bowel sounds. No palpable organomegaly. MUSCULOSKELETAL: No joint swelling or deformity. EXTREMITIES: No cyanosis, clubbing, or pedal edema. NEUROLOGICAL: Gross neurological examination did not reveal any focal deficits. SKIN: No rashes. No petechiae Results CBC & Chem 7: 08/29/20 13:21 08/29/20 13:21 Labs: Abnormal Lab Results - Last 24 Hours (Table) 08/29/20 08/29/20 08/29/20 Range/Units 13:21 13:21 13:21 RBC 2.69 L (4.30-5.90) m/uL Hgb 7.1 L D (13.0-17.5) gm/dL Hct 22.4 L (39.0-53.0) % RDW 17.8 H (11.5-15.5) % Plt Count 746 H (150-450) k/uL Neutrophils # 7.8 H (1.3-7.7) k/uL Sodium 134 L (137-145) mmol/L Glucose 122 H (74-99) mg/dL Total Protein 5.9 L (6.3-8.2) g/dL Albumin 3.3 L (3.5-5.0) g/dL Urine Opiates Screen Detected H (NotDetected) U Benzodiazepines Scrn Detected H (NotDetected) U Marijuana (THC) Screen Detected H (NotDetected) Assessment and Plan Assessment: Altered mental status, could be metabolic encephalopathy versus intracranial process. Rule out metastasis to the brain Acute anemia, rule out GI bleed Metastatic pancreatic cancer Mild to moderate calorie protein malnutrition Hypertension History of GERD Chronic back pain Plan: This is a pleasant 50 years old male who presents with altered mental status, anemia. Continue monitoring hemoglobin. continue with normal saline Continue with Protonix twice a day Neurology and GI consult Hold Xanax and narcotics if possible. Labs and medication were reviewed.. Continue same treatment. Continue with symptomatic treatment. Resume home medication. Monitor lytes and vitals. DVT and GI prophylaxis. Further recommendations depends on the clinical course of the patient DVT prophylaxis: no Subcutaneous heparin in view of severe GI Prophylaxis: Ppi Prognosis is guarded d/w staff
--- NOTE | 2020-08-29 19:43 | P.CNNES ---
History of Present Illness Consult date: 08/29/20 Requesting physician: Pietro Mccain Reason for Consult: altered mental status History of Present Illness: This is a 50-year-old gentleman with medical history of pancreatic cancer, hypertension who presented to the emergency department on 08/29/2020 with 3 day history of altered mental status. History is obtained from medical records since patient is unable to provide that. It seems that the patient has not been compliant with his pancreatic cancer treatment per the ED note that was reported by EMS. Unknown the patient baseline mentation. Per the patient's nurse he has garbled speech. The patient's home medication is gabapentin 801 tablet 4 times a day, Zyprexa, amlodipine, morphine 50 mg daily at bedtime, Compazine,piqray, xanax 1mg bid, [place] PRN. Some of the workup in the hospital consisted of: Initial vital signs of blood blood pressure of 103/70, heart rate of 71, respiratory of 16, temperature of 98.8 Fahrenheit orally and pulse ox of 95% room air. CT of the head is reported as no acute intracranial hemorrhage, mass effect or midline shift is seen. EKG is reported as normal sinus rhythm. Normal EKG. CBC with differential is hemoglobin 7.1 which is low hematocrit is 22.4 platelet is 746K which is elevated. History panel is sodium was 1:30/low but unremarkable. Glucose is 122 unremarkable. Otherwise the rest of cancer panel is within normal limits. Urine drug screen is positive for opiates, benzodiazepines and marijuana. Serum alcohol was less than 10. Stool occult blood is positive Review of Systems Review of system: The 12 point system was reviewed and apparent positive and negative per HPI. Past Medical History Past Medical History: Cancer, GERD/Reflux, Hypertension Additional Past Medical History / Comment(s): Pancreatitis, chronic low back pain, insomnia, pancreatic CA History of Any Multi-Drug Resistant Organisms: None Reported Past Surgical History: Appendectomy, Back Surgery, Cholecystectomy Additional Past Surgical History / Comment(s): Low back surgery/coflex device, pain clinic procedures, colonoscopy Past Anesthesia/Blood Transfusion Reactions: No Reported Reaction Past Psychological History: No Psychological Hx Reported Additional Psychological History / Comment(s): Pt resides with his parents. 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 Smoking Status: Unknown if ever smoked Past Alcohol Use History: Heavy, Occasional Additional Past Alcohol Use History / Comment(s): ETOH abuse in past,... Past Drug Use History: Marijuana - Past Family History Father Family Medical History: Cancer Additional Family Medical History / Comment(s): colon cancer with surgery. Mother Family Medical History: No Reported History Additional Family Medical History / Comment(s): Benign polyps Medications and Allergies Home Medications Medication Instructions Recorded Confirmed Type Hydrocodone/Acetaminophen [[place] 1 tab PO Q4H PRN 03/22/19 08/29/20 History 10-325] amLODIPine [Norvasc] 5 mg PO DAILY #30 tab 03/27/19 08/29/20 Rx Famotidine 40 mg PO BID 05/05/20 08/29/20 History Gabapentin 800 mg PO QID 05/05/20 08/29/20 History OLANZapine [ZyPREXA] 5 mg PO DAILY 05/05/20 08/29/20 History ALPRAZolam [Xanax] 1 mg PO BID 08/29/20 08/29/20 History Loratadine [Claritin] 10 mg PO DAILY 08/29/20 08/29/20 History Morphine Sulfate [Ms Contin] 15 mg PO HS 08/29/20 08/29/20 History Pantoprazole [Protonix] 40 mg PO DAILY 08/29/20 08/29/20 History Piqray 300mg 600 mg PO DAILY 08/29/20 08/29/20 History Prochlorperazine [Compazine] 10 mg PO Q6H PRN 08/29/20 08/29/20 History Allergies Allergy/AdvReac Type Severity Reaction Status Date / Time No Known Allergies Allergy Verified 08/29/20 14:23 Physical Examination - Vital Signs Vital Signs: Vital Signs Temp Pulse Resp BP Pulse Ox 08/29/20 15:06 85 16 108/70 96 08/29/20 13:08 98.8 F 71 16 103/70 95 Intake and Output 08/29/20 08/29/20 08/29/20 06:59 14:59 22:59 Intake Total 0 Balance 0 Intake: Oral 0 Other: # Voids 1 Weight 51.71 kg 51.71 kg GENERAL: The patient is lying in bed and was sleeping. He seems cachectic. He does not seem in acute distress. CHEST: The heart rate is regular rate rhythm. No murmurs to auscultation. No carotid bruit bilaterally. LUNG: Clear to auscultation bilaterally no wheezing noted throughout. Not labored breathing. ABDOMEN/GI: Bowel sounds present in all 4 quadrants. No tenderness to palpation throughout. NEUROLOGICAL: Higher mental function: The patient was sleeping. Upon waking him up after repeated tries he stated his name correctly. Afer numerous tries he stated he was in the hospital but does not tell which. He was able to name pen upon showing him. He was following commands to pontomine. He had aphasia just speaking nonsense and seemed at time it was wernicke. He did not appear to have neglect. Cranial nerves: The pupils are round, equal and reactive to light. Visual bear are hard to assess because of his cooperation. Extraocular movement is able to track throughout the room and no appreciable nystagmus. No facial wea kness. No dysarthria is noted. Could not assess rest of cranial nerves because of patient's condition. Motor: The strength is able to lift all extremities above gravity and no focality noted but individual muscle could not be assessed. Decrease bulk throughout. Slight decrease tone throughout. Cerebellum: Could not assess. Sensation: Could not assess. Reflexes (right/left): 2+ throughout. Plantars are downgoing bilaterally. Results - Laboratory Findings CBC and BMP: 08/29/20 13:21 07 13:21 Abnormal Lab Findings: Abnormal Labs 08/29/20 08/29/20 08/29/20 13:21 13:21 13:21 RBC 2.69 L Hgb 7.1 L D Hct 22.4 L RDW 17.8 H Plt Count 746 H Neutrophils # 7.8 H Sodium 134 L Glucose 122 H Total Protein 5.9 L Albumin 3.3 L Urine Opiates Screen Detected H U Benzodiazepines Scrn Detected H U Marijuana (THC) Screen Detected H Assessment and Plan Assessment: This is a 50-year-old gentleman with history of pancreatic cancer who is reported not compliant taking his medication for his pancreatic cancer and has altered mental status for the past 3 days. Aphasia (appears to be wernicke) is concerning for metastatsis especially with history of cancer. Altered mental status due to hypoxia from anemia and possibly toxic encephalopathy (opiates and benzo) Possible GI bleed with Anemia with a hemoglobin of 7.1 History of pancreatic cancer (reported not compliant taking his medication) Plan: Ordered MRI of the brain with and without to rule out any brain metastases. Ordered routine EEG. I'll not start the patient on an antiepileptic drug unless there is epileptiform discharges or seizure on the EEG I ordered TSH. Vitamin B12 and folate levels are already ordered and pending. Every 4 hours neuro checks. Gastroenterology team is consulted. We'll defer the rest of the medical management to primary team. The plan is discussed with the patient's nurse. Thank you for the consultation. Jb Sethi M.D. Neuro-hospitalist Time with Patient: Greater than 30
[2020-08-29] MEDS: PANTOPRAZOLE 40 MG/10 ML VIAL IVP SCH (21:12)
[2020-08-29] MEDS: GABAPENTIN 400 MG CAP PO SCH (21:12)
[2020-08-29 23:00] LABS: Anisocytosis Slight; HCT 26.6 % (39.0-53.0); HGB 8.2 gm/dL (13.0-17.5); Hypochromasia Moderate; MCHC 30.9 g/dL (31.0-37.0); MCV 84.3 fL (80.0-100.0); Mean Platelet Volume 7.2; Platelet Count 801 k/uL (150-450); RBC 3.15 m/uL (4.30-5.90); RDW 17.9 % (11.5-15.5); WBC 9.6 k/uL (3.8-10.6)
[2020-08-30] MEDS: HYDROcodone/APAP 10-325MG 1 EACH TAB PO PRN ×5 (05:01→23:51)
[2020-08-30 06:29] LABS: Anisocytosis Slight; Basophils % (A) 0 %; Eosinophils % (A) 0 %; HCT 25.1 % (39.0-53.0); HGB 7.8 gm/dL (13.0-17.5); Hypochromasia Moderate; Lymphocytes # (A) 1.1 k/uL (1.0-4.8); Lymphocytes % (A) 11 %; MCH 26.3 pg (25.0-35.0); MCHC 31.1 g/dL (31.0-37.0); MCV 84.6 fL (80.0-100.0); Mean Platelet Volume 6.6; Monocytes # (A) 0.7 k/uL (0-1.0); Monocytes % (A) 6 %; Neutrophils # (A) 8.5 k/uL (1.3-7.7); Neutrophils % (A) 82 %; Platelet Count 822 k/uL (150-450); RBC 2.97 m/uL (4.30-5.90); RDW 17.9 % (11.5-15.5); WBC 10.5 k/uL (3.8-10.6)
[2020-08-30 06:51] LABS: ALT 8 U/L (4-49); AST 25 U/L (17-59); African American GFR (CKD) >90 (>60 ml/min/1.73 sqM); Albumin 2.9 g/dL (3.5-5.0); Albumin/Globulin Ratio 1.2; Alkaline Phosphatase 106 U/L (38-126); Anion Gap 8 mmol/L; Bilirubin,Unconjugated 0.2 mg/dL (0.0-1.1); Blood Urea Nitrogen 9 mg/dL (9-20); Calcium 8.9 mg/dL (8.4-10.2); Carbon Dioxide 24 mmol/L (22-30); Chloride 106 mmol/L (98-107); Globulin 2.5 g/dL; Glucose 123 mg/dL (74-99); Magnesium 2.1 mg/dL (1.6-2.3); Non-African American GFR(CKD) >90 (>60 ml/min/1.73 sqM); Potassium 3.8 mmol/L (3.5-5.1); Sodium 138 mmol/L (137-145); Total Bilirubin 0.2 mg/dL (0.2-1.3); Total Protein 5.4 g/dL (6.3-8.2)
[2020-08-30] MEDS: PANTOPRAZOLE 40 MG/10 ML VIAL IVP SCH ×2 (08:41→21:09)
[2020-08-30] MEDS: GABAPENTIN 400 MG CAP PO SCH ×4 (08:41→21:09)
[2020-08-30] MEDS: SODIUM CHLORIDE 0.9% 1,000 ML IV SCH ×3 (08:49→15:12)
--- NOTE | 2020-08-30 14:21 | P.PN ---
Subjective Mr. Romero is a 49-year-old male with a known past medical history of metastatic pancreatic cancer, hypertension, GERD Presents of 3 days of worsening confusion. Patient when seen at bedside he was awake alert has good attention span however most of his answers are unrelated to the questions and does not make much sense, however he answers some of the questions appropriately, he knew he is at the current hospital, however when asked about the year he states that's the , and the name of the president he answered "Myron Marte". When asked if he has cancer he answered no although I it is documented in previous notes However patient denies any headache, no abdominal pain or chest pain, no weakness in upper or lower extremities. No blurred vision or slurred speech. No change in bowel habits. Other information was limited by the patient mental status. Vitas looks stable, blood pressure on the low side in . Lap showing low hemoglobin at 7.1 compared to 10.4 last month. Risks of CBC, BMP, liver enzymes are unremarkable. 08/30/2020 Patient today is awake and alert and oriented to time place and person, he was his diagnosis and illness and why he came to the hospital. As per patient apparently he was still drinking half pint of liquor every day, he was drinking yesterday and his mom does not know his drinking found him co nfused and Dr. his PCP who advised her to come to the hospital Hemodynamically patient is a stable Patient has an oncologist at [facility], currently takes martell, he was seen Dr. Samuel before. States that he has chronic upper epigastric and left upper quadrant pain and tenderness which is chronic. He feels hungry and thirsty and he wants to eat and drink. MRI of the brain to rule out metastasis still pending Objective - Vital Signs Vital signs: Vital Signs Temp 97.7 F 08/30/20 11:23 Pulse 86 08/30/20 11:23 Resp 16 08/30/20 11:23 BP 107/68 08/30/20 11:23 Pulse Ox 100 08/30/20 11:23 Intake & Output 08/29/20 08/30/20 08/30/20 18:59 06:59 18:59 Intake Total 0 1560 Balance 0 1560 Weight 51.71 kg Intake: Intake, IV Titration 1560 Amount Sodium Chloride 0.9% 1, 1560 000 ml @ 130 mls/hr IV . Q7H42M [facility] Rx#:[id number] Oral 0 Other: Voiding Method Toilet Toilet Urinal Urinal # Voids 1 2 - Exam GENERAL: The patient is alert and oriented x3, not in any acute distress. Well developed, well nourished. HEENT: Pupils are round and equally reacting to light. EOMI. No scleral icterus. No conjunctival pallor. Normocephalic, atraumatic. No pharyngeal erythema. No thyromegaly. CARDIOVASCULAR: S1 and S2 present. No murmurs, rubs, or gallops. PULMONARY: Chest is clear to auscultation, no wheezing or crackles. -ABDOMEN: Soft, mild LUQ tenderness, no rebound tenderness or guarding. nondistended, normoactive bowel sounds. No palpable organomegaly. MUSCULOSKELETAL: No joint swelling or deformity. EXTREMITIES: No cyanosis, clubbing, or pedal edema. NEUROLOGICAL: Gross neurological examination did not reveal any focal deficits. SKIN: No rashes. no petechiae. - Labs CBC & Chem 7: 08/30/20 05:51 08/30/20 05:51 Labs: Abnormal Lab Results - Last 24 Hours (Table) 08/29/20 08/29/20 08/30/20 Range/Units 22:01 22:01 05:51 RBC 3.15 L 2.97 L (4.30-5.90) m/uL Hgb 8.2 L 7.8 L (13.0-17.5) gm/dL Hct 26.6 L 25.1 L (39.0-53.0) % MCHC 30.9 L (31.0-37.0) g/dL RDW 17.9 H 17.9 H (11.5-15.5) % Plt Count 801 H 822 H (150-450) k/uL Neutrophils # 8.5 H (1.3-7.7) k/uL Glucose (74-99) mg/dL Total Protein (6.3-8.2) g/dL Albumin (3.5-5.0) g/dL Lipase 566 H (23-300) U/L 08/30/20 Range/Units 05:51 RBC (4.30-5.90) m/uL Hgb (13.0-17.5) gm/dL Hct (39.0-53.0) % MCHC (31.0-37.0) g/dL RDW (11.5-15.5) % Plt Count (150-450) k/uL Neutrophils # (1.3-7.7) k/uL Glucose 123 H (74-99) mg/dL Total Protein 5.4 L (6.3-8.2) g/dL Albumin 2.9 L (3.5-5.0) g/dL Lipase (23-300) U/L Assessment and Plan Assessment: Altered mental status, could be toxic encephalopathy secondary to alcohol intoxication and abuse by history. Rule out metastasis to the brain Severe anemia with positive occult blood in stool , rule out significant GI bleed Metastatic pancreatic cancer Mild to moderate calorie protein malnutrition Hypertension History of GERD Chronic back pain Plan: This is a pleasant 50 years old male who presents with altered mental status, anemia. Continue monitoring hemoglobin. continue with normal saline Continue with Protonix twice a day Neurology and GI consult. Also consult oncology service as it is not to the patient Hold Xanax and narcotics if possible. MRI of the brain is pending Labs and medication were reviewed.. Continue same treatment. Continue with symptomatic treatment. Resume home medication. Monitor lytes and vitals. DVT and GI prophylaxis. Further recommendations depends on the clinical course of the patient DVT prophylaxis: no Subcutaneous heparin in view of severe GI Prophylaxis: Ppi Prognosis is guarded d/w staff
[2020-08-30 14:26] VITALS: BMI 17.3
[2020-08-30 15:26] LABS: % Iron Saturation 9.62 (15.00-50.00)
[2020-08-30 15:32] LABS: Folate, Serum 7.6 ng/mL
[2020-08-30 15:51] LABS: Ferritin 521.8 ng/mL (22.0-322.0)
--- NOTE | 2020-08-30 16:21 | P.PN ---
Subjective Progress Note Date: 08/30/20 The patient is seen at bedside and he feels he is doing drastically better today compared to yesterday. He stated he has chronic alcohol use and has been binge drinking for the past 5 days and is not compliant with his medication for pancreatic cancer. He is accompanied by his girlfriend and agrees that he does drink. Objective - Vital Signs Vital signs: Vital Signs Temp 97.7 F 08/30/20 11:23 Pulse 86 08/30/20 11:23 Resp 16 08/30/20 11:23 BP 107/68 08/30/20 11:23 Pulse Ox 100 08/30/20 11:23 Intake & Output 08/29/20 08/30/20 08/30/20 18:59 06:59 18:59 Intake Total 0 1560 200 Balance 0 1560 200 Weight 51.71 kg 51.71 kg Intake: Intake, IV Titration 1560 Amount Sodium Chloride 0.9% 1, 1560 000 ml @ 130 mls/hr IV . Q7H42M [facility] Rx#:[id number] Oral 0 200 Other: Voiding Method Toilet Toilet Urinal Urinal # Voids 1 2 - Exam GENERAL: The patient is lying and is cachectic. Not in acute distress. He looks older than his age. NEUROLOGICAL: Higher mental function: The patient is awake, alert, oriented to self, place and time. Patient is following commands. No aphasia and no neglect. Cranial nerves: The pupils are round, equal and reactive to light and accommodation. Visual bear are full to confrontation throughout. Extraocular movement is intact no nystagmus is noted. Facial sensation is normal to touch throughout. The facial strength is normal throughout. Hearing is normal bilaterally to hand rub. Tongue is midline and moved [id number] without any difficulty. No dysarthria is noted. Shoulder shrug is normal bilaterally. Motor: Gait is normal. The strength is 5 over 5 throughout. Normal tone. But decreased bulk. Cerebellum: Normal finger to nose bilaterally. Sensation: Sensation is normal to touch throughout. Reflexes (right/left): 2+ throughout. Plantars are downgoing bilaterally. WORK-UP: Vitamin B12 is 552 which is considered within normal limits. Serum folate 7.6 which is considered within the low normal limits. TSH is 0.697 which is considered within normal limits. CT of the head is reported as no acute intracranial hemorrhage, mass effect or midline shift is seen. - Labs CBC & Chem 7: 08/30/20 05:51 08/30/20 05:51 Labs: Abnormal Lab Results - Last 24 Hours (Table) 08/29/20 08/29/20 08/30/20 Range/Units 22:01 22:01 05:51 RBC 3.15 L 2.97 L (4.30-5.90) m/uL Hgb 8.2 L 7.8 L (13.0-17.5) gm/dL Hct 26.6 L 25.1 L (39.0-53.0) % MCHC 30.9 L (31.0-37.0) g/dL RDW 17.9 H 17.9 H (11.5-15.5) % Plt Count 801 H 822 H (150-450) k/uL Neutrophils # 8.5 H (1.3-7.7) k/uL Glucose (74-99) mg/dL Iron 20 L (65-175) ug/dL TIBC 208 L (228-460) ug/dL % Saturation 9.62 L (15.00-50.00) Total Protein (6.3-8.2) g/dL Albumin (3.5-5.0) g/dL Lipase 566 H (23-300) U/L 08/30/20 Range/Units 05:51 RBC (4.30-5.90) m/uL Hgb (13.0-17.5) gm/dL Hct (39.0-53.0) % MCHC (31.0-37.0) g/dL RDW (11.5-15.5) % Plt Count (150-450) k/uL Neutrophils # (1.3-7.7) k/uL Glucose 123 H (74-99) mg/dL Iron (65-175) ug/dL TIBC (228-460) ug/dL % Saturation (15.00-50.00) Total Protein 5.4 L (6.3-8.2) g/dL Albumin 2.9 L (3.5-5.0) g/dL Lipase (23-300) U/L Assessment and Plan Assessment: This is a 50-year-old gentleman with history of pancreatic cancer who is reported not compliant taking his medication for his pancreatic cancer and has altered mental status for the past 3 days. Episode of wernick Aphasia Due to toxic encephalopathy (has been binge drinking and is positive for opiates and benzo)---back to baseline. Possible GI bleed with Anemia with a hemoglobin of 7.1 History of pancreatic cancer (reported not compliant taking his medication) Chronic alcohol use Plan: Pending MRI of the brain. I notified the patient that the MRI is not needed especially since it is felt due to toxic encephalopathy. He stated it is schedule within an hour and wants to pursue with MRI. Discontinued EEG since not warranted. Because of low folate level, I started the patient on folic acid 1mg daily. I started patient on Thiamine 100mg daily. Every 4 hours neuro checks. Gastroenterology team is consulted. Oncology team is consulted. Patient was counseled on alcohol cessation We'll defer the rest of the medical management to primary team. The plan is discussed with the patient's nurse. UPDATE: MR the brain is reported as normal MRI scan of the brain. No evidence of metastasis disease minimal left-sided maxillary sinusitis. I personally could not review the MRI images since there is no images uploaded only report. There is no further neurological workup needed this time. Neurology will sign off. Please reconsult if needed Jb Sethi M.D. Neuro-hospitalist Time with Patient: Less than 30
[2020-08-30] MEDS: FOLIC ACID 1 MG TAB PO SCH (18:11)
[2020-08-30] MEDS: THIAMINE 100 MG TAB PO SCH (18:22)
--- NOTE | 2020-08-30 19:26 | P.CONS ---
History of Present Illness - Reason for Consult Consult date: 08/30/20 Known Cancer Requesting physician: Seth E Sheet - Chief Complaint Mental status, not eating - History of Present Illness Mr. Romero is well known to our practice for treatment of Pancreatic Cancer, most recently treated with Piqray under the care of [facility]. He presented after family was concerned for mental status changes, excessive alcohol and drug use with mixing of his medications, and decreased PO intake. He stated he has chronic alcohol use and has been binge drinking for the past week which has resulted with misuse of medications and non-adherence to his medication for pancreatic cancer. Oncologic History Mr Romero is a pleasant white male, initially seen in consult at [facility] on 03/23/19. The patient had a history of heavy EtOH use and had presented with episodes of abdominal pain that had been ongoing since at least 07/27. He had had various diagnoses, including cholecystitis, suspected normal minus, and at least one episode of suspected pancreatitis. In 11/26 he was told that he may have a pancreatic mass but would need workup out of town as his insurance was not accepted locally. The patient did have a follow-up at [facility] in 05/28. The patient was admitted this time with recurrent abdominal pain, nausea and vomiting with presentation consistent with pancreatitis. He did improve with symptomatic treatment. CT of the abdomen on 03/22/19 had shown a mass at the tail of the pancreas measuring 6 x 7 x 5.5 cm with surrounding inflammatory change. There were foci of low attenuation present within the liver, at least 6 lesions, largest about 1.2 cm in the right lobe highly suspicious for metastasis. MRI of the liver on 03/23/19 confirmed the presence of a palpated a mass. There was ductal dilation distal to the mass. There was a large no suspected causing mass effect on the left renal vein measuring 3.2 at 2.7 cm, as well as a smaller node posterior and superior to the penetrating body measuring 2.2 x 2.8 cm. There was confirmation of multiple lesions in the liver in both lobes, with the largest 1.5 cm in the posterior right lobe. The patient proceeded to liver biopsy on 03/24/19 and was discharged. Core biopsy showed benign parenchyma with mild steatosis. The patient was then referred for an endoscopic ultrasound which was performed at [facility] on 04/21/19. This confirmed the presence of an 8.1 x 4.1 cm heterogenous mixed mass at the pancreatic neck. There also appeared to be one malignant appearing lymph nodes in the shawn hepatis measuring 3.6 x 2.8 cm which was not biopsied as the portal vein was overlying it. 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 The patient was seen for his first office visit on 04/28/19. he had a PET scan ordered, that was positive in the pancreatic neck mass. On this it appeared that the larger 9+ centimeter mass was actually a peripancreatic node or mass which was necrotic and also positive. Uptake was also noted and gastrohepatic lymph nodes. No uptake was seen in the liver lesions. These were still felt to be suspicious. The the patient was referred to the [facility] for an opinion per his request. Telemedicine audiovisual 06/01/19: The patient was evaluated at the [facility] and was felt to have advanced disease which was not surgical. Systemic chemotherapy with palliative intent was recommended, with similar regimens as to pancreatic adenocarcinoma. The patient denied any fevers/chills/nausea/vomiting. Appetite is diminished but stable. He has some upper abdominal discomfort off and on but not on a persistent basis. This seems to be more related to his diet at this time. No obvious bleeding noted. Review of systems otherwise as per HPI and negative out of 10 Telemedicine Audiovisual 07/06/19: The patient started gemcitabine and Abraxane on 06/28/19. He is status post day 8 of cycle #1. He denied any fevers/chills or vomiting. He has had some mild nausea intermittently. There is some decrease in appetite for about 2 days post chemotherapy and mild increase in fatigue. He continues to perform his ADLs. He however is complaining of increased abdominal pain and intermittent distention across the upper abdomen. He is on Timewell 10-325 from his PCP but states that these are not being as effective. Review of systems otherwise as per HPI and negative out of 10 as above. The patient is status post cycle 2. molecular testing revealed him to be MSI stable, with NGS negative. the patient was noted to have progression after 2 cycles of Gemzar and Abraxane. He was therefore changed to modified FOLFIRINOX in 08/27. He is status post 12 cycles dose was reduced after cycle 6, because of progressive drop in energy and appetite. He tolerated treatment better with the decrease in dose. A CT scan after 8 cycles showed stability pancreatic lesion and peripancreatic nodes, but possibly some new lesions in the left upper quadrant. The patient was seen at the [facility] an case discussed with Dr Cardenas. Based on the mixed response, it was recommended that the patient continue treatment for another 3-4 cycles with repeat imaging. He therefore resume his regimen on 01/10/20 04/02/20 - after this visit a discussion with his [facility] physician was had between and his treating physician there, the plan was to have additional biopsy for biomarkers and then start with [place], Abraxan and xeloda however insurance has denied this plan, stating he progressed on FOLFIRINOX and the only option is capcitabine alone, however this would likely be ineffective considering his progression on the same. Last noted was he missed his initial biopsy cheduled due to transportation. He did finally get performed last week In April 2020 he was admitted after Patient presented for midepigastric pain. Associated nausea. no vomiting, denies fevers or chills. CT reveals progressive disease. He later followed up with [facility] and at current under [facility] care with treatment of Piqray. Review of Systems All systems: negative Constitutional: Reports as per HPI Past Medical History Past Medical History: Cancer, GERD/Reflux, Hypertension Additional Past Medical History / Comment(s): Pancreatitis, chronic low back pain, insomnia, pancreatic CA History of Any Multi-Drug Resistant Organisms: None Reported Past Surgical History: Appendectomy, Back Surgery, Cholecystectomy Additional Past Surgical History / Comment(s): Low back surgery/coflex device, pain clinic procedures, colonoscopy Past Anesthesia/Blood Transfusion Reactions: No Reported Reaction Past Psychological History: No Psychological Hx Reported Additional Psychological History / Comment(s): Pt resides with his parents. He does not have a [place] driver's license, his parents or friends take him to app. Smoking Status: Unknown if ever smoked Past Alcohol Use History: Heavy, Occasional Additional Past Alcohol Use History / Comment(s): ETOH abuse in past,... Past Drug Use History: Marijuana - Past Family History Father Family Medical History: Cancer Additional Family Medical History / Comment(s): colon cancer with surgery. Mother Family Medical History: No Reported History Additional Family Medical History / Comment(s): Benign polyps Medications and Allergies Home Medications Medication Instructions Recorded Confirmed Type Hydrocodone/Acetaminophen [Timewell 1 tab PO Q4H PRN 03/22/19 08/29/20 History 10-325] amLODIPine [Norvasc] 5 mg PO DAILY #30 tab 03/27/19 08/29/20 Rx Famotidine 40 mg PO BID 05/05/20 08/29/20 History Gabapentin 800 mg PO QID 05/05/20 08/29/20 History OLANZapine [ZyPREXA] 5 mg PO DAILY 05/05/20 08/29/20 History ALPRAZolam [Xanax] 1 mg PO BID 08/29/20 08/29/20 History Loratadine [Claritin] 10 mg PO DAILY 08/29/20 08/29/20 History Morphine Sulfate [Ms Contin] 15 mg PO HS 08/29/20 08/29/20 History Pantoprazole [Protonix] 40 mg PO DAILY 08/29/20 08/29/20 History Piqray 300mg 600 mg PO DAILY 08/29/20 08/29/20 History Prochlorperazine [Compazine] 10 mg PO Q6H PRN 08/29/20 08/29/20 History Allergies Allergy/AdvReac Type Severity Reaction Status Date / Time No Known Allergies Allergy Verified 08/29/20 14:23 Physical Exam Vitals: Vital Signs Temp Pulse Resp BP Pulse Ox 08/30/20 11:23 97.7 F 86 16 107/68 100 08/30/20 08:00 86 16 08/30/20 04:29 98.4 F 84 16 110/68 99 08/29/20 20:00 97.9 F 90 16 103/65 100 Intake and Output 08/30/20 08/30/20 08/30/20 06:59 14:59 22:59 Intake Total 1560 200 Balance 1560 200 Intake: Intake, IV Titration 1560 Amount Sodium Chloride 0.9% 1, 1560 000 ml @ 130 mls/hr IV . Q7H42M [facility] Rx#:[id number] Oral 200 Other: Voiding Method Toilet Urinal # Voids 2 Weight 51.71 kg - Constitutional General appearance: Present: cachexia, cooperative, no acute distress - EENT Eyes: Present: anicteric sclerae, EOMI ENT: Present: hearing grossly normal - Respiratory Details: Respirations even and unlabored - Cardiovascular Details: Skin warm and dry - Gastrointestinal General gastrointestinal: Present: soft, tenderness (Mild) - Neurologic Neurologic: Present: CNII-XII intact - Psychiatric Psychiatric: Present: A&O x's 3, appropriate affect, intact judgment & insight Results CBC & Chem 7: 08/30/20 05:51 08/30/20 05:51 Labs: Abnormal Lab Results - Last 24 Hours (Table) 08/29/20 08/29/20 08/30/20 Range/Units 22:01 22:01 05:51 RBC 3.15 L 2.97 L (4.30-5.90) m/uL Hgb 8.2 L 7.8 L (13.0-17.5) gm/dL Hct 26.6 L 25.1 L (39.0-53.0) % MCHC 30.9 L (31.0-37.0) g/dL RDW 17.9 H 17.9 H (11.5-15.5) % Plt Count 801 H 822 H (150-450) k/uL Neutrophils # 8.5 H (1.3-7.7) k/uL Glucose (74-99) mg/dL Iron 20 L (65-175) ug/dL TIBC 208 L (228-460) ug/dL % Saturation 9.62 L (15.00-50.00) Ferritin 521.8 H (22.0-322.0) ng/mL Total Protein (6.3-8.2) g/dL Albumin (3.5-5.0) g/dL Lipase 566 H (23-300) U/L 08/30/20 Range/Units 05:51 RBC (4.30-5.90) m/uL Hgb (13.0-17.5) gm/dL Hct (39.0-53.0) % MCHC (31.0-37.0) g/dL RDW (11.5-15.5) % Plt Count (150-450) k/uL Neutrophils # (1.3-7.7) k/uL Glucose 123 H (74-99) mg/dL Iron (65-175) ug/dL TIBC (228-460) ug/dL % Saturation (15.00-50.00) Ferritin (22.0-322.0) ng/mL Total Protein 5.4 L (6.3-8.2) g/dL Albumin 2.9 L (3.5-5.0) g/dL Lipase (23-300) U/L CT scan - abdomen: report reviewed CT Scan - head: report reviewed CT scan - pelvis: report reviewed Assessment and Plan (1) Normochromic anemia Current Visit: Yes Status: Acute Code(s): D64.9 - ANEMIA, UNSPECIFIED SNOMED Code(s): 00066624 (2) Thrombocytosis Current Visit: Yes Status: Acute Code(s): D47.3 - ESSENTIAL (HEMORRHAGIC) THROMBOCYTHEMIA SNOMED Code(s): 2811159 (3) ETOH abuse Current Visit: Yes Status: Acute Code(s): F10.10 - ALCOHOL ABUSE, UNCOMPLICATED SNOMED Code(s): 75747468 (4) Altered mental status Current Visit: Yes Status: Acute Code(s): R41.82 - ALTERED MENTAL STATUS, UNSPECIFIED SNOMED Code(s): 612848685 (5) Metastasis from pancreatic cancer Current Visit: No Status: Acute Code(s): C79.9 - SECONDARY MALIGNANT NEOPLASM OF UNSPECIFIED SITE; C25.9 - MALIGNANT NEOPLASM OF PANCREAS, UNSPECIFIED SNOMED Code(s): 297993862 Plan: Assessment and Recommendations: Metastatic Pancreatic and Recent Progression: - Currently under the care of [facility] for salvage therapy options, Treatment with Piqray - Follow-up with [facility] Depression/Anxiety: - Which leads to his intermittent non-adherent and drug/ETOH overuse binges - Resulted in Acute and worsening mental status changes and medical non- adherence as well as, nutritional deficits - Folic acid and thiamine - Ok to restart Xanax NOrmocytic Anemia: - Secondary to cancer, treatment, not eating - Transfuse when less than 7 - Monitor Daily Physician Attest: I have assessed and completed the full history and physical and agree with above dictation, dictated as a ascribe
--- NOTE | 2020-08-30 19:43 | MR ---
EXAMINATION TYPE: MR brain wo/w con DATE OF EXAM: 08/30/2020 COMPARISON: None HISTORY: Aphasia. Hx of pancreatic cancer CONTRAST: Standard multiplanar, multisequence MRI departmental protocol utilizing 5 mL intravenous Gadavist monika olinium contrast. Diffusion images show no evidence of an acute infarct. Ventricles have normal size. There is no mass effect nor midline shift. There is no sign of intracranial hemorrhage. The raya-white matter structur es have fairly normal signal pattern. There is no evidence of cerebral edema. Brainstem is intact. Co rpus callosum is intact. The sella turcica appears normal. There is some mucosal thickening in the le ft maxillary sinus. The contrast images show no pathologic enhancement. There is normal enhancement of the venous sinuses . IMPRESSION: Normal MR scan of the brain. No evidence of metastatic disease. Minimal left side maxillary sinusitis.
--- NOTE | 2020-08-30 19:58 | CONS ---
CONSULTATION DATE OF SERVICE: 08/30/2020 REQUESTING PHYSICIAN: Dr. Mila Horowitz. REASON FOR CONSULTATION: Anemia, possible GI bleed. HISTORY OF PRESENT ILLNESS: The patient is a 50-year-old pleasant white male with history of metastatic pancreatic cancer diagnosed in May of 2019. Follows with Dr. Samuel at the [facility]. Presents to the hospital because of altered mental status and confusion. While in the hospital he was noted to have anemia with a hemoglobin down to 7.1 g/dL and hence we are consulted for possible GI bleed. On further questioning, the patient denies any abdominal pain. He reports no nausea, vomiting. No rectal bleeding or melena. He has been having on and off epigastric discomfort since his diagnosis of pancreatic cancer. He follows at [facility] and taking oral chemotherapy. He denies any prior history of peptic ulcer disease or recent NSAID use. PAST MEDICAL HISTORY: Significant for metastatic pancreatic cancer diagnosed in May of 2019, history of GERD, hypertension, heavy alcohol abuse, chronic back pain. PAST SURGICAL HISTORY: Appendectomy, bladder surgery, cholecystectomy, ( ) of the pancreas. MEDICATIONS AT HOME: Include [place], famotidine, Norvasc, gabapentin, Zyprexa, Xanax, Claritin, MS Contin, Protonix, PIQRAY and Compazine. ALLERGIES: None. SOCIAL HISTORY: Heavy alcohol use. Occasional smoking. FAMILY HISTORY: Father had colon cancer. Mother had colon polyps. REVIEW OF SYSTEMS: CARDIOPULMONARY: He denies any chest pain, no shortness of breath. GENITOURINARY: No dysuria or hematuria. MUSCULOSKELETAL: Does complain of chronic back pain. PSYCHIATRIC: Unremarkable. NEUROLOGY: Unremarkable. ENT/VISION: Unremarkable. CONSTITUTIONAL: Progressive weight loss since the diagnosis of metastatic pancreatic cancer. GI: As mentioned above. HEMATOLOGY: Anemia. PHYSICAL EXAMINATION: He appears comfortable. VITAL SIGNS: Stable. Blood pressure is 107/86, pulse rate 86, temperature 97.7. HEENT examination unremarkable. Conjunctivae pale. Sclerae anicteric. Oral cavity, no lesions. NECK: No JVD or lymph node enlargement. CHEST: Clear to auscultation. HEART: Regular rate and rhythm. ABDOMEN: Soft. There was mild diffuse tenderness. No organomegaly. EXTREMITIES: No pedal edema. SKIN; No rashes. NEUROLOGIC: Alert and oriented x3. No focal deficits. LABS: Done at the time of admission to the hospital WBC 10.5, hemoglobin 7.8, platelets 822. Iron is 20, TIBC 208, iron saturation 9.6% and ferritin is 521. AST, ALT normal. Albumin 3.3, lipase 566. Stool occult blood was positive. IMPRESSION: 1. Metastatic pancreatic cancer diagnosed in May of 2019, presently on oral chemotherapy. Follows with Dr. Samuel at the [facility]. 2. Symptomatic anemia with a hemoglobin of 7.8 g/dL but clinically no evidence of active bleeding. He was noted to have Hemoccult-positive stool. Last hemoglobin 2 months ago was 10.4 g/dL. 3. Altered mental status, appears to have resolved. 4. History of hypertension and gastroesophageal reflux disease. RECOMMENDATIONS: 1. Continue with Protonix 40 mg daily. 2. Monitor CBC daily. 3. Since the patient has no active bleeding I do not plan on any endoscopic intervention at the present time. 4. Advance to a regular diet after the MRI is done. 5. Will monitor labs closely and we will follow with you. Thank you for this consultation. MMODL / IJN: [id number] /
[2020-08-30] MEDS: ALPRAZolam 1 MG TAB PO PRN (23:51)
[2020-08-31] MEDS: SODIUM CHLORIDE 0.9% 1,000 ML IV SCH ×3 (00:16→17:48)
[2020-08-31] MEDS: HYDROcodone/APAP 10-325MG 1 EACH TAB PO PRN ×5 (04:24→21:58)
[2020-08-31] MEDS: THIAMINE 100 MG TAB PO SCH (08:45)
[2020-08-31] MEDS: PANTOPRAZOLE 40 MG/10 ML VIAL IVP SCH ×2 (08:45→21:29)
[2020-08-31] MEDS: FOLIC ACID 1 MG TAB PO SCH (08:45)
[2020-08-31] MEDS: GABAPENTIN 400 MG CAP PO SCH ×4 (08:45→21:29)
--- NOTE | 2020-08-31 20:54 | P.PN ---
Subjective Mr. Romero is a 49-year-old male with a known past medical history of metastatic pancreatic cancer, hypertension, GERD Presents of 3 days of worsening confusion. Patient when seen at bedside he was awake alert has good attention span however most of his answers are unrelated to the questions and does not make much sense, however he answers some of the questions appropriately, he knew he is at the current hospital, however when asked about the year he states that's the , and the name of the president he answered "Myron Marte". When asked if he has cancer he answered no although I it is documented in previous notes However patient denies any headache, no abdominal pain or chest pain, no weakness in upper or lower extremities. No blurred vision or slurred speech. No change in bowel habits. Other information was limited by the patient mental status. Vitas looks stable, blood pressure on the low side in . Lap showing low hemoglobin at 7.1 compared to 10.4 last month. Risks of CBC, BMP, liver enzymes are unremarkable. 08/30/2020 Patient today is awake and alert and oriented to time place and person, he was his diagnosis and illness and why he came to the hospital. As per patient apparently he was still drinking half pint of liquor every day, he was drinking yesterday and his mom does not know his drinking found him co nfused and Dr. his PCP who advised her to come to the hospital Hemodynamically patient is a stable Patient has an oncologist at [facility], currently takes martell, he was seen Dr. Samuel before. States that he has chronic upper epigastric and left upper quadrant pain and tenderness which is chronic. He feels hungry and thirsty and he wants to eat and drink. MRI of the brain to rule out metastasis still pending 08/31/2020 Since yesterday patient is back to his basic mental status, he is fully awake and oriented and he remembers all his cancer history and treatment and his current reason for hospitalization. Besides MRI of the brain is negative for metastatic disease. His hemoglobin stable at 7.8 with no evidence of GI bleed, although he has positive occult blood in the stool however GI team are planning for any endoscopic currently Patient although he feels sadness because his father about 2 months ago however he denies hopelessness/helplessness, actually he is taking care of his elderly mother who needs his help for example shopping, patient is planned to home to resume taking care of his mother upon discharge. Patient was considered for possible discharge today however he needs clearance from other consultants I don't believe that the patient needs any psychiatric evaluation as this is appropriate bereavement Also patient told me that he was compliant with his cancer therapy prescribed to him by [facility] oncologist Dr. Ronald donohue , and actually he has a virtual appointment with him this coming Wednesday on 09/03 that he intends to follow-up with Possible discharge in 24-48 hours Objective - Vital Signs Vital signs: Vital Signs Temp 97.8 F 08/31/20 04:38 Pulse 74 08/31/20 08:00 Resp 16 08/31/20 08:00 BP 97/61 08/31/20 04:38 Pulse Ox 100 08/31/20 04:38 Intake & Output 08/30/20 08/31/20 08/31/20 18:59 06:59 18:59 Intake Total 200 590 Balance 200 590 Weight 51.71 kg Intake: Oral 200 590 Other: Voiding Method Toilet Toilet Toilet Urinal Urinal Urinal # Voids 2 2 - Exam GENERAL: The patient is alert and oriented x3, not in any acute distress. Well developed, well nourished. HEENT: Pupils are round and equally reacting to light. EOMI. No scleral icterus. No conjunctival pallor. Normocephalic, atraumatic. No pharyngeal erythema. No thyromegaly. CARDIOVASCULAR: S1 and S2 present. No murmurs, rubs, or gallops. PULMONARY: Chest is clear to auscultation, no wheezing or crackles. -ABDOMEN: Soft, mild LUQ tenderness, no rebound tenderness or guarding. nondistended, normoactive bowel sounds. No palpable organomegaly. MUSCULOSKELETAL: No joint swelling or deformity. EXTREMITIES: No cyanosis, clubbing, or pedal edema. NEUROLOGICAL: Gross neurological examination did not reveal any focal deficits. SKIN: No rashes. no petechiae. - Labs CBC & Chem 7: 08/30/20 05:51 08/30/20 05:51 Labs: Abnormal Lab Results - Last 24 Hours (Table) 08/29/20 08/31/20 Range/Units 22:01 03:51 Ferritin 521.8 H (22.0-322.0) ng/mL Lipase 72 H (14-60) U/L Assessment and Plan Assessment: Altered mental status, secondary to alcohol intoxication, completely resolved. metastasis to the brain ruled out with negative MRI of the brain anemia of chronic disease, mostly secondary to his history of cancer with positive occult blood in stool Metastatic pancreatic cancer to the liver Mild to moderate calorie protein malnutrition Hypertension History of GERD Chronic back pain Plan: This is a pleasant 50 years old male who presents with altered mental status, secondary to alcohol abuse Continue monitoring hemoglobin. continue with normal saline Continue with Protonix Patient is back to his mental status and he might be considered for discharge once cleared by all consultants Neurology and GI consult. And consult oncology service Hold Xanax and narcotics if possible. Labs and medication were reviewed.. Continue same treatment. Continue with symptomatic treatment. Resume home medication. Monitor lytes and vitals. DVT and GI prophylaxis. Further recommendations depends on the clinical course of the patient DVT prophylaxis: no Subcutaneous heparin in view of severe GI Prophylaxis: Ppi Prognosis is guarded d/w staff
[2020-08-31] MEDS: ALPRAZolam 1 MG TAB PO PRN (21:59)
[2020-09-01] MEDS: HYDROcodone/APAP 10-325MG 1 EACH TAB PO PRN ×5 (04:13→22:11)
[2020-09-01] MEDS: FOLIC ACID 1 MG TAB PO SCH (08:19)
[2020-09-01] MEDS: GABAPENTIN 400 MG CAP PO SCH ×4 (08:19→21:06)
[2020-09-01] MEDS: THIAMINE 100 MG TAB PO SCH (08:20)
[2020-09-01] MEDS: PANTOPRAZOLE 40 MG/10 ML VIAL IVP SCH (08:20)
[2020-09-01] MEDS ORDERED: polyethylene glycoL 3350 17 GM POWD.PACK PO STA (08:45)
[2020-09-01 09:00] LABS: Anisocytosis Slight; Basophils # (A) 0.1 k/uL (0-0.2); Basophils % (A) 0 %; Eosinophils # (A) 0.1 k/uL (0-0.7); Eosinophils % (A) 1 %; HCT 25.7 % (39.0-53.0); HGB 7.8 gm/dL (13.0-17.5); Hypochromasia Marked; Lymphocytes # (A) 2.1 k/uL (1.0-4.8); Lymphocytes % (A) 14 %; MCH 26.3 pg (25.0-35.0); MCHC 30.5 g/dL (31.0-37.0); MCV 86.3 fL (80.0-100.0); Mean Platelet Volume 6.4; Monocytes # (A) 0.7 k/uL (0-1.0); Monocytes % (A) 5 %; Neutrophils # (A) 11.6 k/uL (1.3-7.7); Neutrophils % (A) 79 %; Platelet Count 807 k/uL (150-450); RBC 2.97 m/uL (4.30-5.90); RDW 18.1 % (11.5-15.5); WBC 14.8 k/uL (3.8-10.6)
--- NOTE | 2020-09-01 09:25 | PN ---
PROGRESS NOTE DATE OF SERVICE: 09/01/2020 INTERVAL HISTORY: Patient is a 50-year-old white male with history of metastatic pancreatic cancer, admitted to hospital with anemia and hemoglobin of 7.1 g/dL. He was not having any active GI bleed. He is being monitored closely for the last 3 days. Hemoglobin remains stable and today it is 7.8 g/dL. The patient denies any abdominal pain. No nausea, no vomiting. He did have iron studies that showed a serum iron of 20, iron TIBC of 208, iron saturation 99.6% and ferritin of 521. He is complaining of chronic constipation and intermittent lower abdominal discomfort. Appetite has been good. He has no nausea, no vomiting. PHYSICAL EXAMINATION: GENERAL: Appears comfortable, no apparent distress. VITAL SIGNS: Stable. Blood pressure is 112/78, pulse rate 78, temperature 97.3. HEENT: Examination unremarkable. Conjunctivae are pink. Sclerae anicteric. Oral cavity no lesions. NECK: No JVD or lymph node enlargement. CHEST: Clear to auscultation. HEART: Regular rate and rhythm. ABDOMEN: Soft, bowel sounds are positive, no organomegaly. EXTREMITIES: No pedal edema noted. SKIN: No rashes. NEURO: She is alert and oriented x3. No focal deficits. LABS: WBC 10.5, hemoglobin 7.8, platelets 822. Rest of the labs are within normal limits. Lipase is down to 72. IMPRESSION: 1. Macrocytic anemia secondary to anemia of chronic disease. No evidence of iron deficiency anemia. Hemoglobin 7.1 g/dL at the time of admission to the hospital, now continues to remain stable at 7.8 g/dL. Hemoglobin 2 months ago was 10.5 g/dL. Clinically no evidence of active bleeding or occult GI blood loss. 2. Altered mental status has resolved. MRI of the brain was unremarkable. 3. Metastatic pancreatic cancer diagnosed in May of 2019. Follows with Dr. Samuel and presently on oral chemo. 4. History of hypertension and hyperlipidemia. 5. History of chronic alcoholism. RECOMMENDATIONS: 1. Continue with regular diet. 2. Monitor CBC daily. 3. Since there is no evidence of iron deficiency anemia, no indication for any endoscopic intervention. 4. Because of the chronic constipation, we will start him on MiraLAX 1 scoop daily. 5. He can be discharged home from [facility]. He can follow up with Dr. Samuel as scheduled. Thank you for this consultation. MMKIM / IJN: [id number] /
[2020-09-01 11:04] LABS: Appearance,Urine Clear (Clear); Bilirubin,Urine Negative (Negative); Blood,Urine Negative (Negative); Color,Urine Light Yellow; Glucose,Urine (UA) Negative (Negative); Ketones,Urine Negative (Negative); Leukocyte Esterase,Urine Negative (Negative); Nitrite,Urine Negative (Negative); Protein,Urine Negative (Negative); Specific Gravity,Urine 1.009 (1.001-1.035); Urobilinogen,Urine <2.0 mg/dL (<2.0)
--- NOTE | 2020-09-01 12:42 | P.PN ---
Subjective Mr. Romero is a 49-year-old male with a known past medical history of metastatic pancreatic cancer, hypertension, GERD Presents of 3 days of worsening confusion. Patient when seen at bedside he was awake alert has good attention span however most of his answers are unrelated to the questions and does not make much sense, however he answers some of the questions appropriately, he knew he is at the current hospital, however when asked about the year he states that's the , and the name of the president he answered "Myron Marte". When asked if he has cancer he answered no although I it is documented in previous notes However patient denies any headache, no abdominal pain or chest pain, no weakness in upper or lower extremities. No blurred vision or slurred speech. No change in bowel habits. Other information was limited by the patient mental status. Vitas looks stable, blood pressure on the low side in . Lap showing low hemoglobin at 7.1 compared to 10.4 last month. Risks of CBC, BMP, liver enzymes are unremarkable. 08/30/2020 Patient today is awake and alert and oriented to time place and person, he was his diagnosis and illness and why he came to the hospital. As per patient apparently he was still drinking half pint of liquor every day, he was drinking yesterday and his mom does not know his drinking found him co nfused and Dr. his PCP who advised her to come to the hospital Hemodynamically patient is a stable Patient has an oncologist at [facility], currently takes martell, he was seen Dr. Samuel before. States that he has chronic upper epigastric and left upper quadrant pain and tenderness which is chronic. He feels hungry and thirsty and he wants to eat and drink. MRI of the brain to rule out metastasis still pending 08/31/2020 Since yesterday patient is back to his basic mental status, he is fully awake and oriented and he remembers all his cancer history and treatment and his current reason for hospitalization. Besides MRI of the brain is negative for metastatic disease. His hemoglobin stable at 7.8 with no evidence of GI bleed, although he has positive occult blood in the stool however GI team are planning for any endoscopic currently Patient although he feels sadness because his father about 2 months ago however he denies hopelessness/helplessness, actually he is taking care of his elderly mother who needs his help for example shopping, patient is planned to home to resume taking care of his mother upon discharge. Patient was considered for possible discharge today however he needs clearance from other consultants I don't believe that the patient needs any psychiatric evaluation as this is appropriate bereavement Also patient told me that he was compliant with his cancer therapy prescribed to him by [facility] oncologist Dr. Ronald donohue , and actually he has a virtual appointment with him this coming Wednesday on 09/03 that he intends to follow-up with Possible discharge in 24-48 hours 09/01/2020 Patient remains asymptomatic and back to his baseline mental status, he is hemodynamically stable. His temperature is 97.3. He has mild leukocytosis at 14 K. He's eating and drinking well and not in IV fluids. GI and neurology service already cleared him for discharge Oncology team on the case We checked urine analysis is negative. Chest x-ray and probecalcitonin is pending. Monitor WBC tomorrow Objective - Vital Signs Vital signs: Vital Signs Temp 97.3 F L 09/01/20 04:56 Pulse 78 09/01/20 04:56 Resp 16 09/01/20 04:56 BP 113/78 09/01/20 04:56 Pulse Ox 96 09/01/20 04:56 Intake & Output 08/31/20 09/01/20 09/01/20 18:59 06:59 18:59 Intake Total 1040 590 Balance 1040 590 Intake: Intake, IV Titration 1040 Amount Sodium Chloride 0.9% 1, 1040 000 ml @ 130 mls/hr IV . [id number] [facility] Rx#:[id number] Oral 590 Other: Voiding Method Toilet Toilet Toilet Urinal Urinal Urinal # Voids 2 2 - Exam GENERAL: The patient is alert and oriented x3, not in any acute distress. Well developed, well nourished. HEENT: Pupils are round and equally reacting to light. EOMI. No scleral icterus. No conjunctival pallor. Normocephalic, atraumatic. No pharyngeal erythema. No thyromegaly. CARDIOVASCULAR: S1 and S2 present. No murmurs, rubs, or gallops. PULMONARY: Chest is clear to auscultation, no wheezing or crackles. -ABDOMEN: Soft, mild LUQ tenderness, no rebound tenderness or guarding. nondistended, normoactive bowel sounds. No palpable organomegaly. MUSCULOSKELETAL: No joint swelling or deformity. EXTREMITIES: No cyanosis, clubbing, or pedal edema. NEUROLOGICAL: Gross neurological examination did not reveal any focal deficits. SKIN: No rashes. no petechiae. - Labs CBC & Chem 7: 09/01/20 08:42 08/30/20 05:51 Labs: Abnormal Lab Results - Last 24 Hours (Table) 09/01/20 Range/Units 08:42 WBC 14.8 H (3.8-10.6) k/uL RBC 2.97 L (4.30-5.90) m/uL Hgb 7.8 L (13.0-17.5) gm/dL Hct 25.7 L (39.0-53.0) % MCHC 30.5 L (31.0-37.0) g/dL RDW 18.1 H (11.5-15.5) % Plt Count 807 H (150-450) k/uL Neutrophils # 11.6 H (1.3-7.7) k/uL Assessment and Plan Assessment: Altered mental status, secondary to alcohol intoxication, completely resolved. metastasis to the brain ruled out with negative MRI of the brain anemia of chronic disease, mostly secondary to his history of cancer with positive occult blood in stool Metastatic pancreatic cancer to the liver Mild to moderate calorie protein malnutrition Hypertension History of GERD Chronic back pain Plan: This is a pleasant 50 years old male who presents with altered mental status, secondary to alcohol abuse Continue monitoring hemoglobin and WBC. Discontinue IV fluids Continue with Protonix Patient is back to his mental status and he might be considered for discharge once cleared by all consultants Neurology and GI consult vladimir cleared The patient for discharge . consult oncology service Hold Xanax and narcotics if possible. Labs and medication were reviewed.. Continue same treatment. Continue with symptomatic treatment. Resume home medication. Monitor lytes and vitals. DVT and GI prophylaxis. Further recommendations depends on the clinical course of the patient DVT prophylaxis: no Subcutaneous heparin in view of severe GI Prophylaxis: Ppi Prognosis is guarded d/w staff
--- NOTE | 2020-09-01 15:12 | XR ---
EXAMINATION TYPE: XR chest 1V DATE OF EXAM: 09/01/2020 COMPARISON: 12/21/2016 HISTORY: Leukocytosis TECHNIQUE: Single frontal view of the chest is obtained. FINDINGS: MediPort catheter is noted to be in place. There is no focal air space opacity, pleural effusion, or pneumothorax seen. The cardiac silhouette size is within normal limits. The osseous structures are intact. IMPRESSION: 1. No acute process.
[2020-09-01] MEDS: ALPRAZolam 1 MG TAB PO PRN (22:12)
[2020-09-02] MEDS: HYDROcodone/APAP 10-325MG 1 EACH TAB PO PRN ×4 (01:54→19:29)
[2020-09-02 06:02] LABS: Anisocytosis Slight; Basophils % (A) 0 %; Eosinophils # (A) 0.1 k/uL (0-0.7); Eosinophils % (A) 1 %; HCT 22.1 % (39.0-53.0); Hypochromasia Marked; Lymphocytes # (A) 1.8 k/uL (1.0-4.8); Lymphocytes % (A) 18 %; MCH 26.3 pg (25.0-35.0); MCHC 30.8 g/dL (31.0-37.0); MCV 85.4 fL (80.0-100.0); Mean Platelet Volume 6.9; Monocytes # (A) 0.5 k/uL (0-1.0); Monocytes % (A) 5 %; Neutrophils # (A) 7.2 k/uL (1.3-7.7); Neutrophils % (A) 74 %; Platelet Count 654 k/uL (150-450); RBC 2.58 m/uL (4.30-5.90); RDW 18.1 % (11.5-15.5); WBC 9.8 k/uL (3.8-10.6)
[2020-09-02 06:06] LABS: HGB 6.8 gm/dL (13.0-17.5)
[2020-09-02] MEDS: GABAPENTIN 400 MG CAP PO SCH ×4 (07:35→21:00)
[2020-09-02] MEDS: PANTOPRAZOLE 40 MG TABLET PO SCH (07:35)
[2020-09-02] MEDS: FOLIC ACID 1 MG TAB PO SCH (07:35)
[2020-09-02] MEDS: THIAMINE 100 MG TAB PO SCH (07:35)
[2020-09-02] MEDS ORDERED: MAGNESIUM HYDROXIDE 2,400 MG/10 ML CUP PO PRN (10:06)
--- NOTE | 2020-09-02 13:27 | P.PN ---
Subjective Mr. Romero is a 49-year-old male with a known past medical history of metastatic pancreatic cancer, hypertension, GERD Presents of 3 days of worsening confusion. Patient when seen at bedside he was awake alert has good attention span however most of his answers are unrelated to the questions and does not make much sense, however he answers some of the questions appropriately, he knew he is at the current hospital, however when asked about the year he states that's the , and the name of the president he answered "Myron Marte". When asked if he has cancer he answered no although I it is documented in previous notes However patient denies any headache, no abdominal pain or chest pain, no weakness in upper or lower extremities. No blurred vision or slurred speech. No change in bowel habits. Other information was limited by the patient mental status. Vitas looks stable, blood pressure on the low side in . Lap showing low hemoglobin at 7.1 compared to 10.4 last month. Risks of CBC, BMP, liver enzymes are unremarkable. 08/30/2020 Patient today is awake and alert and oriented to time place and person, he was his diagnosis and illness and why he came to the hospital. As per patient apparently he was still drinking half pint of liquor every day, he was drinking yesterday and his mom does not know his drinking found him co nfused and Dr. his PCP who advised her to come to the hospital Hemodynamically patient is a stable Patient has an oncologist at [facility], currently takes martell, he was seen Dr. Samuel before. States that he has chronic upper epigastric and left upper quadrant pain and tenderness which is chronic. He feels hungry and thirsty and he wants to eat and drink. MRI of the brain to rule out metastasis still pending 08/31/2020 Since yesterday patient is back to his basic mental status, he is fully awake and oriented and he remembers all his cancer history and treatment and his current reason for hospitalization. Besides MRI of the brain is negative for metastatic disease. His hemoglobin stable at 7.8 with no evidence of GI bleed, although he has positive occult blood in the stool however GI team are planning for any endoscopic currently Patient although he feels sadness because his father about 2 months ago however he denies hopelessness/helplessness, actually he is taking care of his elderly mother who needs his help for example shopping, patient is planned to home to resume taking care of his mother upon discharge. Patient was considered for possible discharge today however he needs clearance from other consultants I don't believe that the patient needs any psychiatric evaluation as this is appropriate bereavement Also patient told me that he was compliant with his cancer therapy prescribed to him by [facility] oncologist Dr. Cardenas, and actually he has a virtual appointment with him this coming Wednesday on 09/03 that he intends to follow-up with Possible discharge in 24-48 hours 09/01/2020 Patient remains asymptomatic and back to his baseline mental status, he is hemodynamically stable. His temperature is 97.3. He has mild leukocytosis at 14 K. He's eating and drinking well and not in IV fluids. GI and neurology service already cleared him for discharge Oncology team on the case We checked urine analysis is negative. Chest x-ray and probecalcitonin is pending. Monitor WBC tomorrow 09/02/2020 Patient is awake with no symptoms. No cough and no chest pain or dyspnea. No pain or nausea vomiting or diarrhea. Diarrhea. No fever. No weakness or numbness or headaches. No rash. Urine analysis and chest x-ray are negative. Rest of vitals are stable. Hemoglobin dropped today to 6.8 and patient is getting 1 unit of blood transfusi on. No evidence of acute GI bleed and GI team already cleared him for discharge. Most likely anemia of chronic disease and multifactorial secondary to his cancer, nutritional, chemotherapy Monitor hemoglobin proCalcitonin is nonspecific and going to recheck it tomorrow monitor CBC tomorrow Patient will have a virtual appointment with his oncologist Dr. Cardenas from [facility] tomorrow, patient has the contact information Possible discharge in 24-48 hours if he states is stable and improved Objective - Vital Signs Vital signs: Vital Signs Temp 98.4 F 09/02/20 11:52 Pulse 85 09/02/20 11:15 Resp 18 09/02/20 11:15 BP 119/71 09/02/20 11:15 Pulse Ox 98 09/02/20 11:15 Intake & Output 09/01/20 09/02/20 09/02/20 18:59 06:59 18:59 Intake Total 300 0 Balance 300 0 Intake: Oral 300 Blood Product 0 Rc As-1 Unit 0 [id number] Other: Voiding Method Toilet Toilet Toilet Urinal Urinal Urinal # Voids 3 2 - Exam GENERAL: The patient is alert and oriented x3, not in any acute distress. Well developed, well nourished. HEENT: Pupils are round and equally reacting to light. EOMI. No scleral icterus. No conjunctival pallor. Normocephalic, atraumatic. No pharyngeal erythema. No thyromegaly. CARDIOVASCULAR: S1 and S2 present. No murmurs, rubs, or gallops. PULMONARY: Chest is clear to auscultation, no wheezing or crackles. -ABDOMEN: Soft, mild LUQ tenderness, no rebound tenderness or guarding. nondis tended, normoactive bowel sounds. No palpable organomegaly. MUSCULOSKELETAL: No joint swelling or deformity. EXTREMITIES: No cyanosis, clubbing, or pedal edema. NEUROLOGICAL: Gross neurological examination did not reveal any focal deficits. SKIN: No rashes. no petechiae. - Labs CBC & Chem 7: 09/02/20 04:50 08/30/20 05:51 Labs: Abnormal Lab Results - Last 24 Hours (Table) 09/01/20 09/02/20 09/02/20 Range/Units 08:42 04:50 07:11 RBC 2.58 L (4.30-5.90) m/uL Hgb 6.8 L* (13.0-17.5) gm/dL Hct 22.1 L (39.0-53.0) % MCHC 30.8 L (31.0-37.0) g/dL RDW 18.1 H (11.5-15.5) % Plt Count 654 H (150-450) k/uL Procalcitonin 0.36 H (0.02-0.09) ng/mL Crossmatch See Detail Assessment and Plan Assessment: Altered mental status, secondary to alcohol intoxication, completely resolved. metastasis to the brain ruled out with negative MRI of the brain anemia of chronic disease, mostly secondary to his history of cancer with positive occult blood in stool . Metastatic pancreatic cancer to the liver Mild to moderate calorie protein malnutrition Hypertension History of GERD Chronic back pain Plan: This is a pleasant 50 years old male who presents with altered mental status, secondary to alcohol abuse Continue monitoring hemoglobin and WBC. Discontinue IV fluids Continue with Protonix Patient is back to his mental status Neurology and GI consult have cleared The patient for discharge . consult oncology service Check hemoglobin, WBCs and throatcalcitonin Labs and medication were reviewed.. Continue same treatment. Continue with symptomatic treatment. Resume home medication. Monitor lytes and vitals. DVT and GI prophylaxis. Further recommendations depends on the clinical course of the patient DVT prophylaxis: no Subcutaneous heparin in view of severe anemia GI Prophylaxis: Ppi Prognosis is guarded d/w staff
--- NOTE | 2020-09-02 14:26 | P.PN ---
Subjective Progress Note Date: 09/02/20 Principal diagnosis: Altered mental status secondary to EtOH and narcotics Patient feels he is doing better today than he was on admission. His only complaint is no bowel movement for at least 4 days. He is receiving a unit of blood today. He denies any overt bleeding Objective - Vital Signs Vital signs: Vital Signs Temp 98.6 F 09/02/20 13:24 Pulse 74 09/02/20 13:24 Resp 18 09/02/20 13:24 BP 100/66 09/02/20 13:24 Pulse Ox 98 09/02/20 13:24 Intake & Output 09/01/20 09/02/20 09/02/20 18:59 06:59 18:59 Intake Total 300 310 Balance 300 310 Intake: Oral 300 Blood Product 310 Rc As-1 Unit 310 [id number] Other: Voiding Method Toilet Toilet Toilet Urinal Urinal Urinal # Voids 3 2 - Constitutional General appearance: Present: cooperative, no acute distress, thin - EENT Eyes: Present: anicteric sclerae, EOMI ENT: Present: hearing grossly normal - Respiratory Respiratory: bilateral: CTA - Cardiovascular Heart sounds: normal: S1, S2 Abnormal Heart Sounds: Absent: systolic murmur, diastolic murmur, rub, S3 Gallop, S4 Gallop, click, other - Peripheral edema leg Peripheral Edema: bilateral: None - Gastrointestinal Gastrointestinal Comment(s): Very loud bowel sounds in the right upper quadrant, no rebound General gastrointestinal: Present: soft - Neurologic Neurologic: Present: CNII-XII intact - Musculoskeletal Musculoskeletal: Present: generalized weakness, strength equal bilaterally - Psychiatric Psychiatric: Present: A&O x's 3, appropriate affect, intact judgment & insight - Labs CBC & Chem 7: 09/02/20 04:50 08/30/20 05:51 Labs: Abnormal Lab Results - Last 24 Hours (Table) 09/01/20 09/02/20 09/02/20 Range/Units 08:42 04:50 07:11 RBC 2.58 L (4.30-5.90) m/uL Hgb 6.8 L* (13.0-17.5) gm/dL Hct 22.1 L (39.0-53.0) % MCHC 30.8 L (31.0-37.0) g/dL RDW 18.1 H (11.5-15.5) % Plt Count 654 H (150-450) k/uL Procalcitonin 0.36 H (0.02-0.09) ng/mL Crossmatch See Detail Assessment and Plan (1) ETOH abuse Narrative/Plan: Patient's altered mental status is improved with supportive care and cessation of alcohol during admit Current Visit: Yes Status: Acute Priority: High Code(s): F10.10 - ALCOHOL ABUSE, UNCOMPLICATED SNOMED Code(s): 83700930 (2) Anemia Narrative/Plan: Patient has been ordered a unit of packed red blood cells for hemoglobin of 6.8 today. Patient does have occult positive stool, he has been evaluated by Gastroenterology with no plans for endoscopy at this time as endo done done recently. Current Visit: Yes Status: Chronic Priority: Medium Code(s): D64.9 - ANEMIA, UNSPECIFIED SNOMED Code(s): 584446803 (3) Metastasis from pancreatic cancer Narrative/Plan: Patient was just started on piqray for a PI K-3 mutation on a study through [facility]. He will return there for follow-up Current Visit: Yes Status: Chronic Priority: High Code(s): C79.9 - SECONDARY MALIGNANT NEOPLASM OF UNSPECIFIED SITE; C25.9 - MALIGNANT NEOPLASM OF PANCREAS, UNSPECIFIED SNOMED Code(s): 055387581 (4) Constipation Narrative/Plan: Patient was ordered a dose of milk of magnesia with warm prune juice. He was also given a glycerin suppository. He has good bowel sounds, abdomen is soft and nontender. Current Visit: Yes Status: Acute Priority: High Code(s): K59.00 - CONSTIPATION, UNSPECIFIED SNOMED Code(s): 76887887
[2020-09-02] MEDS ORDERED: bisacodyL 10 MG SUPP RECTAL PRN (14:42)
[2020-09-02] MEDS ORDERED: IOPAMIDOL CONTRAST (ORAL USE) VIAL PO PRN (23:02)
--- NOTE | 2020-09-02 23:02 | P.CONS ---
History of Present Illness - Reason for Consult Consult date: 09/02/20 Leukocytosis and elevated prolactin Requesting physician: Seth E Sheet - Chief Complaint Mental status changes x few days - History of Present Illness Patient is 50-year male presented to the ER 4 days ago by EMS for evaluation of mental status changes patient mother called the EMS for the patient having mental status a few days before presentation to the hospital there is no clear history of any fever and the patient did not have any fever over the last 4 days since the patient has been in the hospital patient did have a normal white count except 1 elevated reading of 14.8 yesterday patient subsequent normalized to 9.8 today patient did have a negative UA did have normal creatinine liver enzymes are normal blood pressure was mildly elevated urine tox was positive for benzo marijuana and opiates stool for occult blood was positive patient did have a CT of the brain was negative for any bleed chest x-ray was negative for any pneumonia MRI of the brain was negative for any acute abnormality history of did show some mild left maxillary sinusitis, infectious was consulted today because of his elevated white count yesterday and mild elevated procalcitonin, patient at evaluation denies having any fever or any chills, the patient denies any headache no URI symptoms no chest pain shortness of the cough no abdominal pain no diarrhea no urinary symptoms Review of Systems Positive point has been mentioned in the HPI rest of the systems are negative Past Medical History Past Medical History: Cancer, GERD/Reflux, Hypertension Additional Past Medical History / Comment(s): Pancreatitis, chronic low back pain, insomnia, pancreatic CA History of Any Multi-Drug Resistant Organisms: None Reported Past Surgical History: Appendectomy, Back Surgery, Cholecystectomy Additional Past Surgical History / Comment(s): Low back surgery/coflex device, pain clinic procedures, colonoscopy Past Anesthesia/Blood Transfusion Reactions: No Reported Reaction Past Psychological History: No Psychological Hx Reported Additional Psychological History / Comment(s): Pt resides with his parents. 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 Smoking Status: Unknown if ever smoked Past Alcohol Use History: Heavy, Occasional Additional Past Alcohol Use History / Comment(s): ETOH abuse in past,... Past Drug Use History: Marijuana - Past Family History Father Family Medical History: Cancer Additional Family Medical History / Comment(s): colon cancer with surgery. Mother Family Medical History: No Reported History Additional Family Medical History / Comment(s): Benign polyps Medications and Allergies Home Medications Medication Instructions Recorded Confirmed Type Hydrocodone/Acetaminophen [[place] 1 tab PO Q4H PRN 03/22/19 08/29/20 History 10-325] amLODIPine [Norvasc] 5 mg PO DAILY #30 tab 03/27/19 08/29/20 Rx Famotidine 40 mg PO BID 05/05/20 08/29/20 History Gabapentin 800 mg PO QID 05/05/20 08/29/20 History OLANZapine [ZyPREXA] 5 mg PO DAILY 05/05/20 08/29/20 History ALPRAZolam [Xanax] 1 mg PO BID 08/29/20 08/29/20 History Loratadine [Claritin] 10 mg PO DAILY 08/29/20 08/29/20 History Morphine Sulfate [Ms Contin] 15 mg PO HS 08/29/20 08/29/20 History Pantoprazole [Protonix] 40 mg PO DAILY 08/29/20 08/29/20 History Piqray 300mg 600 mg PO DAILY 08/29/20 08/29/20 History Prochlorperazine [Compazine] 10 mg PO Q6H PRN 08/29/20 08/29/20 History Allergies Allergy/AdvReac Type Severity Reaction Status Date / Time No Known Allergies Allergy Verified 08/29/20 14:23 Physical Exam Vitals: Vital Signs Temp Pulse Pulse Resp BP BP BP 09/02/20 13:24 98.6 F 74 18 100/66 09/02/20 11:52 98.4 F 09/02/20 11:15 85 18 119/71 09/02/20 10:44 98.6 F 74 16 115/79 09/02/20 10:14 98.6 F 64 18 112/78 09/02/20 10:04 97.8 F 81 18 109/73 09/02/20 05:00 98.6 F 75 18 105/69 09/01/20 20:00 99.5 F 97 20 118/76 Pulse Ox 09/02/20 13:24 98 09/02/20 11:52 09/02/20 11:15 98 09/02/20 10:44 97 09/02/20 10:14 97 09/02/20 10:04 98 09/02/20 05:00 97 09/01/20 20:00 97 Intake and Output 09/02/20 09/02/20 09/02/20 06:59 14:59 22:59 Intake Total 300 310 Balance 300 310 Intake: Oral 300 Blood Product 310 Rc As-1 Unit 310 [id number] Other: Voiding Method Toilet Urinal # Voids 2 GENERAL DESCRIPTION: Middle-aged male lying in bed, no distress. No tachypnea or accessory muscle of respiration use. HEENT: Shows Pallor , no scleral icterus. Oral mucous membrane is dry. No pharyngeal erythema or thrush NECK: Trachea central, no thyromegaly. LUNGS: Unlabored breathing. Clear to auscultation anteriorly. No wheeze or crackle. HEART: S1, S2, regular rate and rhythm. No loud murmur ABDOMEN: Soft, no tenderness , guarding or rigidity, no organomegaly EXTREMITIES: No edema of feet. SKIN: No rash, no masses palpable. NEUROLOGICAL: The patient is awake, alert, oriented x3, mood and affect normal. Results CBC & Chem 7: 09/02/20 04:50 08/30/20 05:51 Labs: Abnormal Lab Results - Last 24 Hours (Table) 09/01/20 09/02/20 09/02/20 Range/Units 08:42 04:50 07:11 RBC 2.58 L (4.30-5.90) m/uL Hgb 6.8 L* (13.0-17.5) gm/dL Hct 22.1 L (39.0-53.0) % MCHC 30.8 L (31.0-37.0) g/dL RDW 18.1 H (11.5-15.5) % Plt Count 654 H (150-450) k/uL Procalcitonin 0.36 H (0.02-0.09) ng/mL Crossmatch See Detail Assessment and Plan Assessment: patient with a leukocytosis could be reactive as the patient has only 1 elevated white count which is subsequent normalized without need for antibiotic therapy in this patient with no fever and did not have any obvious focus of infection patient nerves were clear to auscultation chest x-ray was negative urine is negative abdominal soft and flat examination and no evidence of any cellulitis (1) Leukocytosis Current Visit: Yes Status: Acute Code(s): D72.829 - ELEVATED WHITE BLOOD CELL COUNT, UNSPECIFIED SNOMED Code(s): 237704783 Plan: 1-no need for systemic antibiotic therapy as no obvious focus of bacterial infection 2-in view the patient constipation and drop in hemoglobin we will obtain a CT abdominal pelvis with contrast to rule out any intra-abdominal pathology 3-if the patient spike any fever or any further worsening of the white count appropriate cultures before starting the patient on antibiotics We will follow on clinical condition and cultures to further adjust medication if needed Thank you for this consultation we will follow the patient along with you Time with Patient: Greater than 30
[2020-09-03] MEDS: HYDROcodone/APAP 10-325MG 1 EACH TAB PO PRN ×6 (00:09→21:59)
[2020-09-03] MEDS: ALPRAZolam 1 MG TAB PO PRN ×2 (00:16→21:59)
[2020-09-03 06:50] LABS: Anisocytosis Slight; Basophils % (A) 0 %; Eosinophils # (A) 0.1 k/uL (0-0.7); Eosinophils % (A) 1 %; HCT 26.9 % (39.0-53.0); HGB 8.2 gm/dL (13.0-17.5); Hypochromasia Moderate; Lymphocytes # (A) 1.6 k/uL (1.0-4.8); Lymphocytes % (A) 15 %; MCH 26.1 pg (25.0-35.0); MCHC 30.7 g/dL (31.0-37.0); MCV 85.1 fL (80.0-100.0); Mean Platelet Volume 6.4; Monocytes # (A) 0.6 k/uL (0-1.0); Monocytes % (A) 6 %; Neutrophils # (A) 8.1 k/uL (1.3-7.7); Neutrophils % (A) 77 %; Platelet Count 723 k/uL (150-450); Poikilocytosis Slight; RBC 3.16 m/uL (4.30-5.90); RDW 18.5 % (11.5-15.5); WBC 10.6 k/uL (3.8-10.6)
[2020-09-03] MEDS: PANTOPRAZOLE 40 MG TABLET PO SCH (08:22)
[2020-09-03] MEDS: FOLIC ACID 1 MG TAB PO SCH (08:22)
[2020-09-03] MEDS: GABAPENTIN 400 MG CAP PO SCH ×4 (08:22→20:22)
[2020-09-03] MEDS: THIAMINE 100 MG TAB PO SCH (08:22)
--- NOTE | 2020-09-03 11:32 | CT ---
EXAMINATION TYPE: CT abdomen pelvis w con DATE OF EXAM: 09/03/2020 COMPARISON: 07/30/2020 INDICATION: Pancreatic cancer, leukocytosis DLP: 390.0 mGycm, Automated exposure control for dose reduction was used. CONTRAST: 100 mL of Isovue 300. Study performed with Oral Contrast TECHNIQUE: Axial images were obtained from above the diaphragm to the pubic rami in the axial plane a t 5 mm thick sections. Reconstructed images are reviewed on the computer in the coronal plane. FINDINGS: Limited CT sections are obtained the lung bases. The lung bases are clear. CT ABDOMEN: Liver: There is an irregular hypodensity measuring 1.7 cm in the lateral mid right lobe liver. This a ppears to have been present previously. Additional hypodensities are scattered within the liver prese nt previously. At the hepatic hilum 2 adjacent hypodensities have enlarged over the interval currentl y measuring 1.6 and 1.4 cm in size, previous measurement 0.9 and 1.2 cm respectively. Additional area s appear similar in size with slight increase in density over the interval. Metastatic disease is not excluded. Consider ultrasound for additional evaluation. Spleen: Normal Pancreas: Heterogenous mass of the tip of the tail the pancreas currently measures 4.1 x 5.0 cm there is may be slightly smaller than comparison. The large thick-walled heterogenous mass containing some central air currently measures 1.2 x 8.9 cm. Previous measurement 9.5 x 7 cm. Body and head of the p ancreas appear normal. Duct dilatation is not identified. Adrenal glands: The adrenal glands are normal. Gallbladder: Not identified. Kidneys: No masses are evident. No hydronephrosis is present. No cysts are present. Delayed images were obtained through the kidneys, which remain unremarkable. Aorta: Normal Inferior vena cava: Normal. CT PELVIS: Fecal debris throughout the colon. There is mild fecal retention. Oral contrast extends to the distal small bowel loops. Appendix: Not identified. No dilated tubular structure or inflammatory change is evident. Urinary bladder: Normal. Genitourinary structures: The prostate is normal Osseous structures: No suspicious lytic or sclerotic lesions. There is loss of disc at L4-5. The spac ers between the spinous processes of L4 and L5. Body heights are preserved. IMPRESSIONS: 1. Enlarging mass at the tail of pancreas. 2. Scattered hypodense lesions within the liver. These are not simple cysts on CT and metastatic dise ase may be present. Consider ultrasound for repeat additional evaluation. Correlate with prior liver biopsy results. 3. Moderate fecal retention throughout the colon no obstruction is evident.
--- NOTE | 2020-09-03 14:51 | P.PN ---
Subjective Progress Note Date: 09/03/20 Principal diagnosis: Altered mental status secondary to EtOH and narcotics Patient had a BM last night and today. He feels much better, less bloated. His pain is currently controlled. He just completed his CT of the abdomen and pelvis. Objective - Vital Signs Vital signs: Vital Signs Temp 98.1 F 09/03/20 11:27 Pulse 98 09/03/20 11:27 Resp 16 09/03/20 11:27 BP 120/85 09/03/20 11:27 Pulse Ox 98 09/03/20 11:27 Intake & Output 09/02/20 09/03/20 09/03/20 18:59 06:59 18:59 Intake Total 310 540 Balance 310 540 Weight 51.71 kg Intake: Oral 540 Blood Product 310 Rc As-1 Unit 310 [id number] Other: Voiding Method Toilet Toilet Toilet Urinal Urinal Urinal # Voids 2 0 # Bowel Movements 1 - Constitutional General appearance: Present: cooperative, no acute distress, thin - EENT Eyes: Present: anicteric sclerae, EOMI ENT: Present: hearing grossly normal - Respiratory Details: patient visualized ambulating without any respiratory difficulty - Peripheral edema leg Peripheral Edema: bilateral: None - Gastrointestinal General gastrointestinal: Present: soft - Neurologic Neurologic: Present: CNII-XII intact - Musculoskeletal Musculoskeletal: Present: strength equal bilaterally - Psychiatric Psychiatric: Present: A&O x's 3, appropriate affect, intact judgment & insight - Labs CBC & Chem 7: 09/03/20 05:30 08/30/20 05:51 Labs: Abnormal Lab Results - Last 24 Hours (Table) 09/03/20 09/03/20 Range/Units 05:30 05:30 RBC 3.16 L (4.30-5.90) m/uL Hgb 8.2 L (13.0-17.5) gm/dL Hct 26.9 L (39.0-53.0) % MCHC 30.7 L (31.0-37.0) g/dL RDW 18.5 H (11.5-15.5) % Plt Count 723 H (150-450) k/uL Neutrophils # 8.1 H (1.3-7.7) k/uL Procalcitonin 0.18 H (0.02-0.09) ng/mL Assessment and Plan (1) ETOH abuse Narrative/Plan: Patient's altered mental status is improved with supportive care and cessation of alcohol during admit Current Visit: Yes Status: Acute Priority: High Code(s): F10.10 - ALCOHOL ABUSE, UNCOMPLICATED SNOMED Code(s): 47761484 (2) Anemia Narrative/Plan: Hemoglobin 8.2 status post 1 unit of PRBCs. Has been evaluated by Gastroenterology with no plans for endoscopy at this time as endo done done recently. Current Visit: Yes Status: Chronic Priority: Medium Code(s): D64.9 - ANE VAMSHI, UNSPECIFIED SNOMED Code(s): 754591187 (3) Metastasis from pancreatic cancer Narrative/Plan: Patient was just started on piqray for a PI K-3 mutation on a study through [facility]. He will return there for follow-up Results of the CT of the abdomen and pelvis were seen after evaluating patient today. Patient was just started on study so, these slight changes from imaging last month very well could be slight disease progression that occurred prior to start of new treatment. Treatment follow-up imaging per study. We will follow up with patient in the a.m. and discuss the results. As stated above, patient will continue following at [facility] on study. We will ask for CD of CT AP to be given to patient to take with him to [facility] Current Visit: Yes Status: Chronic Priority: High Code(s): C79.9 - SECONDARY MALIGNANT NEOPLASM OF UNSPECIFIED SITE; C25.9 - MALIGNANT NEOPLASM OF PANCREAS, UNSPECIFIED SNOMED Code(s): 044325483 (4) Constipation Narrative/Plan: Patient was given milk of magnesia 2, warm prune juice and glycerin suppository. He has had 2 bowel movements, relief of abd bloating and discomfort. Encouraged patient to maintain Senokot 2 tabs twice a day with MiraLAX daily/as needed for soft easily passable bowel movement every 2-3 days. Current Visit: Yes Status: Acute Priority: High Code(s): K59.00 - CONSTIPATION, UNSPECIFIED SNOMED Code(s): 37870227
[2020-09-03] MEDS: SENNOSIDES-DOCUSATE SODIUM 1 EACH TAB PO SCH (20:09)
[2020-09-03 20:39] VITALS: RESP 18
--- NOTE | 2020-09-03 21:35 | P.PN ---
Subjective Mr. Romero is a 49-year-old male with a known past medical history of metastatic pancreatic cancer, hypertension, GERD Presents of 3 days of worsening confusion. Patient when seen at bedside he was awake alert has good attention span however most of his answers are unrelated to the questions and does not make much sense, however he answers some of the questions appropriately, he knew he is at the current hospital, however when asked about the year he states that's the , and the name of the president he answered "Myron Marte". When asked if he has cancer he answered no although I it is documented in previous notes However patient denies any headache, no abdominal pain or chest pain, no weakness in upper or lower extremities. No blurred vision or slurred speech. No change in bowel habits. Other information was limited by the patient mental status. Vitas looks stable, blood pressure on the low side in . Lap showing low hemoglobin at 7.1 compared to 10.4 last month. Risks of CBC, BMP, liver enzymes are unremarkable. 08/30/2020 Patient today is awake and alert and oriented to time place and person, he was his diagnosis and illness and why he came to the hospital. As per patient apparently he was still drinking half pint of liquor every day, he was drinking yesterday and his mom does not know his drinking found him co nfused and Dr. his PCP who advised her to come to the hospital Hemodynamically patient is a stable Patient has an oncologist at [facility], currently takes martell, he was seen Dr. Samuel before. States that he has chronic upper epigastric and left upper quadrant pain and tenderness which is chronic. He feels hungry and thirsty and he wants to eat and drink. MRI of the brain to rule out metastasis still pending 08/31/2020 Since yesterday patient is back to his basic mental status, he is fully awake and oriented and he remembers all his cancer history and treatment and his current reason for hospitalization. Besides MRI of the brain is negative for metastatic disease. His hemoglobin stable at 7.8 with no evidence of GI bleed, although he has positive occult blood in the stool however GI team are planning for any endoscopic currently Patient although he feels sadness because his father about 2 months ago however he denies hopelessness/helplessness, actually he is taking care of his elderly mother who needs his help for example shopping, patient is planned to home to resume taking care of his mother upon discharge. Patient was considered for possible discharge today however he needs clearance from other consultants I don't believe that the patient needs any psychiatric evaluation as this is appropriate bereavement Also patient told me that he was compliant with his cancer therapy prescribed to him by [facility] oncologist Dr. Cardenas, and actually he has a virtual appointment with him this coming Wednesday on 09/03 that he intends to follow-up with Possible discharge in 24-48 hours 09/01/2020 Patient remains asymptomatic and back to his baseline mental status, he is hemodynamically stable. His temperature is 97.3. He has mild leukocytosis at 14 K. He's eating and drinking well and not in IV fluids. GI and neurology service already cleared him for discharge Oncology team on the case We checked urine analysis is negative. Chest x-ray and probecalcitonin is pending. Monitor WBC tomorrow 09/02/2020 Patient is awake with no symptoms. No cough and no chest pain or dyspnea. No pain or nausea vomiting or diarrhea. Diarrhea. No fever. No weakness or numbness or headaches. No rash. Urine analysis and chest x-ray are negative. Rest of vitals are stable. Hemoglobin dropped today to 6.8 and patient is getting 1 unit of blood transfusi on. No evidence of acute GI bleed and GI team already cleared him for discharge. Most likely anemia of chronic disease and multifactorial secondary to his cancer, nutritional, chemotherapy Monitor hemoglobin proCalcitonin is nonspecific and going to recheck it tomorrow monitor CBC tomorrow Patient will have a virtual appointment with his oncologist Dr. Cardenas from [facility] tomorrow, patient has the contact information Possible discharge in 24-48 hours if he states is stable and improved 09/03/2020 Patient remains asymptomatic, is doing well, he is AAO 3. His main problem currently his constipation His discharge was held today pending the results of CT of the abdomen and pelvis which came showing progression of his pancreatic mass and multiple liver metastasis which is expected and patient can follow-up with your [facility] and his oncologist Dr. Cardenas , whom they rescheduled his appointment from today to next week. Oncology team wanted him to take a copy of CD for the result of CT of the abdomen to his oncologist pro-calcitonin is coming down to 0.36 down to 0.18 without antibiotic hemoglobin is stable at 8.2 after Wednesday of blood transfusion. No leukocytosis Possible discharge tomorrow Objective - Vital Signs Vital signs: Vital Signs Temp 97.3 F L 09/03/20 19:40 Pulse 71 09/03/20 19:40 Resp 18 09/03/20 19:40 BP 116/79 09/03/20 19:40 Pulse Ox 100 09/03/20 19:40 Intake & Output 09/03/20 09/03/20 09/04/20 06:59 18:59 06:59 Intake Total 540 Balance 540 Weight 51.71 kg Intake: Oral 540 Other: Voiding Method Toilet Toilet Urinal Urinal # Voids 0 4 # Bowel Movements 1 - Exam GENERAL: The patient is alert and oriented x3, not in any acute distress. Well developed, well nourished. HEENT: Pupils are round and equally reacting to light. EOMI. No scleral icterus. No conjunctival pallor. Normocephalic, atraumatic. No pharyngeal erythema. No thyromegaly. CARDIOVASCULAR: S1 and S2 present. No murmurs, rubs, or gallops. PULMONARY: Chest is clear to auscultation, no wheezing or crackles. -ABDOMEN: Soft, mild LUQ tenderness, no rebound tenderness or guarding. nondi stended, normoactive bowel sounds. No palpable organomegaly. MUSCULOSKELETAL: No joint swelling or deformity. EXTREMITIES: No cyanosis, clubbing, or pedal edema. NEUROLOGICAL: Gross neurological examination did not reveal any focal deficits. SKIN: No rashes. no petechiae. - Labs CBC & Chem 7: 09/03/20 05:30 08/30/20 05:51 Labs: Abnormal Lab Results - Last 24 Hours (Table) 09/03/20 09/03/20 Range/Units 05:30 05:30 RBC 3.16 L (4.30-5.90) m/uL Hgb 8.2 L (13.0-17.5) gm/dL Hct 26.9 L (39.0-53.0) % MCHC 30.7 L (31.0-37.0) g/dL RDW 18.5 H (11.5-15.5) % Plt Count 723 H (150-450) k/uL Neutrophils # 8.1 H (1.3-7.7) k/uL Procalcitonin 0.18 H (0.02-0.09) ng/mL Assessment and Plan Assessment: Altered mental status, secondary to alcohol intoxication, completely resolved. metastasis to the brain ruled out with negative MRI of the brain anemia of chronic disease, mostly secondary to his history of cancer with pos itive occult blood in stool . Metastatic pancreatic cancer to the liver Mild to moderate calorie protein malnutrition Hypertension History of GERD Chronic back pain Plan: This is a pleasant 50 years old male who presents with altered mental status, secondary to alcohol abuse Continue monitoring hemoglobin and WBC. Discontinue IV fluids Continue with Protonix Patient is back to his mental status Neurology and GI consult have cleared The patient for discharge . consult oncology service Results of CT of the abdomen reviewed. Labs and medication were reviewed.. Continue same treatment. Continue with symptomatic treatment. Resume home medication. Monitor lytes and vitals. DVT and GI prophylaxis. Further recommendations depends on the clinical course of the patient DVT prophylaxis: no Subcutaneous heparin in view of severe anemia GI Prophylaxis: Ppi Prognosis is guarded Possible discharge tomorrow
--- NOTE | 2020-09-04 05:05 | PN ---
PROGRESS NOTE DATE OF SERVICE: 09/03/2020 REASON FOR FOLLOWUP: Leukocytosis and elevated CRP. INTERVAL HISTORY: The patient is afebrile. The patient is breathing comfortably. The patient denies having any chest pain, shortness of breath or cough. No abdominal pain or diarrhea. PHYSICAL EXAMINATION: Blood pressure is 116/79 with a pulse of 71, temperature 97.3. He is 100% on room air. General description is a middle-aged male lying in bed in no distress. Respiratory system: Unlabored breathing, clear to auscultation anteriorly. Heart S1, S2. Regular rate and rhythm. Abdomen: Soft, no tenderness. LABS: Hemoglobin 8.8, white count 10.6. CRP is down to 0.[address] abdomen and pelvis with enlarging tumor head of pancreas and multiple cysts in the liver. DIAGNOSTIC IMPRESSION AND PLAN: Patient with elevated white count that has subsequently normalized. Procalcitonin trending down without any antibiotic therapy. Could be related to his metastatic pancreatic cancer. Clinically no evidence of any infection. Hence recommend no antibiotic at this point. Continue supportive care. MMODL / IJN: [id number] / MTDD
[2020-09-04 05:34] LABS: Anisocytosis Slight; Basophils % (A) 0 %; Eosinophils # (A) 0.2 k/uL (0-0.7); Eosinophils % (A) 2 %; HCT 27.5 % (39.0-53.0); HGB 8.5 gm/dL (13.0-17.5); Hypochromasia Marked; Lymphocytes # (A) 1.8 k/uL (1.0-4.8); Lymphocytes % (A) 18 %; MCH 26.2 pg (25.0-35.0); MCHC 30.9 g/dL (31.0-37.0); MCV 84.7 fL (80.0-100.0); Mean Platelet Volume 6.2; Monocytes # (A) 0.6 k/uL (0-1.0); Monocytes % (A) 6 %; Neutrophils # (A) 7.4 k/uL (1.3-7.7); Neutrophils % (A) 73 %; Platelet Count 763 k/uL (150-450); Poikilocytosis Slight; RBC 3.24 m/uL (4.30-5.90); WBC 10.1 k/uL (3.8-10.6)
[2020-09-04 06:23] VITALS: BP 119/78; PULSE 68; TEMP 97.8
[2020-09-04] MEDS: PANTOPRAZOLE 40 MG TABLET PO SCH (08:08)
[2020-09-04] MEDS: THIAMINE 100 MG TAB PO SCH (08:08)
[2020-09-04] MEDS: SENNOSIDES-DOCUSATE SODIUM 1 EACH TAB PO SCH (08:08)
[2020-09-04] MEDS: GABAPENTIN 400 MG CAP PO SCH (08:08)
[2020-09-04] MEDS: FOLIC ACID 1 MG TAB PO SCH (08:09)
[2020-09-04] MEDS: HYDROcodone/APAP 10-325MG 1 EACH TAB PO PRN ×2 (08:12→11:38)
[2020-09-04] MEDS ORDERED: bisacodyL 10 MG SUPP RECTAL STA (10:17)
--- NOTE | 2020-09-04 17:46 | P.PN ---
Progress Note - Text Progress Note Date: 09/04/20 REASON FOR FOLLOWUP: Leukocytosis and elevated CRP. INTERVAL HISTORY: The patient remains to be afebrile. The patient is breathing comfortably. The patient denies having chest pain, shortness of breath or cough. No abdominal pain and denies having diarrhea. PHYSICAL EXAMINATION: Blood pressure is 110/70 with a pulse of 70, temperature 97.3. He is 100% on room air. General description is a middle-aged male lying in bed in no distress. Respiratory system: Unlabored breathing, clear to auscultation anteriorly. Heart S1, S2. Regular rate and rhythm. Abdomen: Soft, no tenderness. LABS: CT abdomen and pelvis with enlarging tumor head of pancreas and multiple cysts in the liver. DIAGNOSTIC IMPRESSION AND PLAN: Patient with elevated white count that has subsequently normalized. Procalcitonin did trend down without any antibiotic therapy. Could be related to his metastatic pancreatic cancer. Clinically no evidence of any infection. No need for any antibiotic on discharge
--- NOTE | 2020-09-05 22:26 | P.DS ---
Providers Date of admission: 08/29/20 14:55 Attending physician: Seth Barrios MD Consults: 08/29/20 14:29 Consult Physician Routine Consulting Provider: Jb Sethi Consult Reason/Comments: altered mental status Do you want consulting provider notified?: Yes 08/30/20 14:15 Consult Physician Urgent Consulting Provider: Mervin Samuel Consult Reason/Comments: known to your service Do you want consulting provider notified?: Yes 09/02/20 06:49 Consult Physician Routine Consulting Provider: Adis العلي Consult Reason/Comments: leukocytosis and elevated procalcitonin Do you want consulting provider notified?: Yes [facility] Course: Date of service 09/04/2020 Diagnoses: Altered mental status, secondary to alcohol intoxication, completely resolved. metastasis to the brain ruled out with negative MRI of the brain anemia of chronic disease, mostly secondary to his history of cancer with positive occult blood in stool . Metastatic pancreatic cancer to the liver Mild to moderate calorie protein malnutrition Hypertension History of GERD Chronic back pain Hospital course: Mr. Romero is a 49-year-old male with a known past medical history of metastatic pancreatic cancer, hypertension, GERD Presents because of worsening confusion. Secondary to alcohol intoxication however his mother was unaware about his drinking habit and send him to the emergency room where he got admitted. Next a was fully awake and oriented throughout his hospital stay. Chest evaluated the patient and recommended MRI of the brain to rule out metastatic disease which was negative for metastases. Workup shows no signs of infection, infectious disease team recommended no antibiotic. Also patient dropped his hemoglobin to 6.8, he got 1 units of blood transfusion. Evaluated by GI and cleared him for discharge as there was no overt GI bleed at most likely he has anemia of chronic disease CT of the abdomen and pelvis which came showing progression of his pancreatic mass and multiple liver metastasis which is expected and patient can follow-up with your [facility] and his oncologist Dr. Cardenas , whom qwith he rescheduled his appointment (virtual meeting) in 1 week. Patient evaluated by oncology team and cleared him for discharge Patient states his back to normal self and he agrees to go home. He denies any other new symptoms or complaints. Patient was cleared for discharge by all consultants including ID, GI and oncology team Problems and management plan were discussed with the patient and he verbalized understanding and acceptance Patient was found stable and can be discharged home however he needs follow-up as an outpatient. Patient was instructed to follow up with PCP Dr. Mila de la torre within one week and patient agrees Also patient was instructed to follow up with his oncologist at [facility] Dr. Cardenas in one week and he agrees, patient also instructed to got a copy of CD from medical record for his CT of the abdomen and pelvis to take it to his oncologist and he agrees Physical exam Gen: patient is a AAOx3, no distress CVS: S1-S2, RRR, no murmur Lungs: B/L CTA, no wheezing Abdomen: soft, no distention, no tenderness, positive bowel sounds Extremity: no leg edema or induration Time spent more than 35 minutes Patient Condition at Discharge: Fair Plan - Discharge Summary New Discharge Prescriptions: New Folic Acid 1 mg PO DAILY #30 tab Thiamine [Vitamin B-1] 100 mg PO DAILY #30 tab bisacodyL [Dulcolax] 10 mg RECTAL DAILY PRN 3 Days #3 supp PRN Reason: Constipation Continue Hydrocodone/Acetaminophen [Harper 10-325] 1 tab PO Q4H PRN PRN Reason: Pain Famotidine 40 mg PO BID OLANZapine [ZyPREXA] 5 mg PO DAILY Morphine Sulfate [Ms Contin] 15 mg PO HS ALPRAZolam [Xanax] 1 mg PO BID Prochlorperazine [Compazine] 10 mg PO Q6H PRN PRN Reason: Nausea Gabapentin 800 mg PO QID Pantoprazole [Protonix] 40 mg PO DAILY Loratadine [Claritin] 10 mg PO DAILY Piqray 300mg 600 mg PO DAILY Discontinued amLODIPine [Norvasc] 5 mg PO DAILY #30 tab Discharge Medication List Hydrocodone/Acetaminophen [Harper 10-325] 1 tab PO Q4H PRN 03/22/19 [History] Famotidine 40 mg PO BID 05/05/20 [History] Gabapentin 800 mg PO QID 05/05/20 [History] OLANZapine [ZyPREXA] 5 mg PO DAILY 05/05/20 [History] ALPRAZolam [Xanax] 1 mg PO BID 08/29/20 [History] Loratadine [Claritin] 10 mg PO DAILY 08/29/20 [History] Morphine Sulfate [Ms Contin] 15 mg PO HS 08/29/20 [History] Pantoprazole [Protonix] 40 mg PO DAILY 08/29/20 [History] Piqray 300mg 600 mg PO DAILY 08/29/20 [History] Prochlorperazine [Compazine] 10 mg PO Q6H PRN 08/29/20 [History] Folic Acid 1 mg PO DAILY #30 tab 09/04/20 [Rx] Thiamine [Vitamin B-1] 100 mg PO DAILY #30 tab 09/04/20 [Rx] bisacodyL [Dulcolax] 10 mg RECTAL DAILY PRN 3 Days #3 supp 09/04/20 [Rx] Follow up Appointment(s)/Referral(s): Mila Horowitz MD [Primary Care Provider] - 1-2 days (patient to call for follow up appt) Jose Cardenas MD [REFERRING] - 1 Week (you have virtual appointment with him on 09/10) Patient Instructions/Handouts: Thiamine (By mouth), Folic Acid (By mouth), Laxatives, Stimulant (Into the rectum), Anemia (DC) Activity/Diet/Wound Care/Special Instructions: regular diet activity is restricted till you see your doctor We recommend avoiding using narcotics (Harper/morphine) and/or benzodiazepine (Xanax) together or even more dangerously while drinking alcohol as decrease risk of respiratory depression, cardiorespiratory arrest and/or Discharge Disposition: HOME SELF-CARE
== END 2020-09-04 13:46 | disposition home or self-care (01) | DRG 896 ==
LOC: EC 13:07 → 5NMEDONC 14:55
PROVIDERS: ADMIT Internal Medicine; ATTEND Internal Medicine
DX: F10.129 Alcohol abuse with intoxication, unspecified (principal); G92 Toxic encephalopathy; E46 Unspecified protein-calorie malnutrition; R47.01 Aphasia; C78.7 Secondary malignant neoplasm of liver and intrahepatic bile duct; C25.9 Malignant neoplasm of pancreas, unspecified; Z91.19 Patient's noncompliance with other medical treatment and regimen; Z80.0 Family history of malignant neoplasm of digestive organs; K21.9 Gastro-esophageal reflux disease without esophagitis; G89.29 Other chronic pain; M54.9 Dorsalgia, unspecified; D47.3 Essential (hemorrhagic) thrombocythemia; D53.9 Nutritional anemia, unspecified; D63.8 Anemia in other chronic diseases classified elsewhere; E78.5 Hyperlipidemia, unspecified; I10 Essential (primary) hypertension; K59.09 Other constipation; R09.02 Hypoxemia; Z83.71 Family history of colonic polyps; Z91.14 Patient's other noncompliance with medication regimen; Z79.899 Other long term (current) drug therapy; D72.829 Elevated white blood cell count, unspecified
CPT/HCPCS: 36415; 70450; 70553; 71045; 74177; 80048; 80053; 80076; 80306; 80320; 81003; 82150; 82272; 82607; 82728; 82746; 83540; 83550; 83690; 83735; 84145; 84443; 85025; 85027; 85610; 85730; 86850; 86900; 86901; 86920; 93005; 96374; 99285